=== PATIENT | male | born 1955 | race Caucasian/White ===

== ENCOUNTER 2018-04-15 06:24 | Inpatient (IN) ==
--- NOTE | 2018-04-14 12:25 | Anesthesia Evaluation PreOp ---
Date of Encounter: 04/15/18 Time of Encounter: 07:16 - Past History Planned Operation: CABG Cardiac History: HTN, Hyperlipidemia, Arrhythmia (Afib, Hx SVT s/p ablation), Other (CAD) Pulmonary History: HEIDY Dx (no CPAP) AU PAIR History: Denies Any Significant HX Other Medical History: Hepatic (Fatty Liver with esophageal varices (four columns of non bleeding grade 3 varices in lower third esophagus with banding and "complete eradication")), Diabetes Type II, GERD, Other (obesity BMI 40) Anesthesia History: No Prior Anesthetic Complications, Past Anesthesia ( bilateral total hips) Alcohol Use: occasionally Drug use: none Medications and Allergies Aspirin [Lo-Dose Aspirin EC] 81 mg PO DAILY 04/03/18 [History] Furosemide [Lasix] 40 mg PO DAILY 04/03/18 [History] Isosorbide MONOnitrate (24 HR) [Imdur] 30 mg PO DAILY 04/03/18 [History] Lisinopril [Zestril] 40 mg PO DAILY 04/03/18 [History] Metformin HCl [Metformin HCl] 1,000 mg PO BID 04/03/18 [History] Omeprazole [PriLOSEC] 20 mg PO Q48H 04/03/18 [History] Rifaximin [Xifaxan] 550 mg PO BID 04/03/18 [History] Nadolol 20 mg PO HS 04/15/18 [History] 3 Allergy/AdvReac Type Severity Reaction Status Date / Time Penicillins [PCN] Allergy Rash Verified 04/15/18 07:07 - Meds/Allergy Pre-op Review Medications Reviewed: Yes Allergies Reviewed: Yes Beta Blockers on Current Med List: Yes (metoprolol ) If Beta Blockers taken, Date/Time (Last Dose taken): 720 Anesthesia Results - Labs Laboratory Tests 04/02/18 04/02/18 04/11/18 15:39 15:39 14:36 WBC 6.8 Hgb 14.6 Hct 41.7 Plt Count 133 L PT 13.0 H INR 1.2 APTT 34.4 Sodium 139 Potassium 3.7 Chloride 106 Carbon Dioxide 28 BUN 14 Creatinine 0.79 Est GFR (Non-Af Amer) > 60 Hemoglobin A1c 04/11/18 14:36 WBC Hgb Hct Plt Count PT INR APTT Sodium Potassium Chloride Carbon Dioxide BUN Creatinine Est GFR (Non-Af Amer) Hemoglobin A1c 6.1 H - Imaging EKG: report reviewed (afib), image reviewed Additional studies: [facility] 04/03/2018 There is severe three vessel coronary artery disease. The left ventricle is normal and has normal contractility EF 50% Acceptable risk for endoscopy +/- variceal banding; discuss with his optical effects line up person regarding statin as well which may be of benefit with RAZA and multivsl CAD. Atrial fibrillation not currently on AC 2/2 h/o esophageal varices Recommendations: Optimal medical therapy of patient's disease. Aggressive risk factor modification. Suggest patient have Elective coronary artery bypass surgery. History/Risk Factors: right hip replacement, right shoulder surgery. Diabetes Hypertension Procedure Time out performed according to hospital policy Access obtained in the right Radial artery by percutaneous puncture. Coronary angio and catheter across AV with pressures on pullback after vgram. LV Ventriculography Ejection Method: LV Gram Ejection Fraction: 50% Coronary Dominance: Co-dominant Lesion Findings/Interventions * Left Main Coronary Artery The LMCA is angiographically free of disease. * Left Anterior Descending There is a 90% stenosis in the Proximal LAD. The lesion has a MAGGI flow of 3. There is a 70% stenosis in the 1st Diagonal. The lesion has a MAGGI flow of 3. * Circumflex There is a 80% stenosis in the Mid Circumflex. The lesion has a MAGGI flow of 3. There is a 70% stenosis in the 1st Marginal. The lesion has a MAGGI flow of 3. * Right Coronary Artery There is a 90% stenosis in the Proximal RCA. The lesion has a MAGGI flow of 3. There is a 90% stenosis in the Distal RCA. The lesion has a MAGGI flow of 3. Echo 08/2017 Impressions: LVEF 55%. Moderately dilated left ventricle. Normal LV wall thickness and function. Atypical septal motion consistent with bundle branch block. Indeterminate diastolic function. Normal right ventricular structure and function. Severely dilated left atrium. Severely dilated right atrium. No evidence of pulmonary hypertension. Left Ventricular Wall Motion: Rest Echo Findings All wall segments showed normal motion. Findings: Study Quality * Technically adequate exam. ECG Findings * Sinus rhythm with BBB. Left Ventricle * LVEF 55%. * Moderately dilated left ventricle. * Normal LV wall thickness and function. * Atypical septal motion consistent with bundle branch block. * Indeterminate diastolic function. Right Ventricle * Normal right ventricular structure and function. Left Atrium * Severely dilated left atrium. Right Atrium * Severely dilated right atrium. Interatrial Septum * Interatrial septum not well evaluated. Aortic Valve * Trileaflet aortic valve with normal function. * No aortic regurgitation. * No aortic stenosis. Mitral Valve * Normal mitral valve structure and function. * No mitral regurgitation. * No mitral stenosis. Tricuspid Valve * Normal tricuspid valve structure and function. * Trace tricuspid regurgitation. * No evidence of pulmonary hypertension. Pulmonic Valve * Normal pulmonic valve structure and function. * No pulmonic regurgitation. Aorta * Normally sized aortic root. Pericardium * The pericardium appears normal. IVC * Normal IVC dimensions and inspiratory collapse. Pulmonary Artery * Normal visualized portions of the main pulmonary artery. Anesthesia Exam Vital Signs/O2 Sat/Glucose, Most Recent Temp Pulse Resp BP Pulse Ox 98.0 F 70 18 132/73 96 04/15/18 06:59 04/15/18 06:59 04/15/18 06:59 04/15/18 06:59 04/15/18 06:59 Blood Glucose* 136 Height: 1.83 Weight: 133 kg NPO (# of Hours): > 8 hr - HEENT Pupil (Motor): Pupils equal Mallampati: II Teeth: Missing Oral Opening: Greater than 3 - AU PAIR LOC: Oriented AU PAIR Motor: Normal RUE, Normal LUE, Normal RLE, Normal LLE, Normal Face AU PAIR Sensory: Normal: RUE, LUE, RLE, LLE, Face - Cardiac Rhythm: Irregular Murmur: None - Pulmonary Breath Sounds: bilateral Clear Respiratory Effort: Symmetrical Anesthesia Assess/Plan ASA Score: 4 Modified Marilee Scale for Level of Consciousness: Cooperative, oriented, and tranquil Anesthetic Plan: General Autologous Blood: Yes Monitoring Plan: Standard Monitors, A-Line, PAC Recovery Plan: ICU
[~2018-04-15 06:24] MED LIST: Dextrose 50 % in Water (Vial) 30 ML, Sodium Bicarbonate 20 MEQ, Lidocaine 1% 5 ML, Insu... TH ONE; Dextrose 50 % in Water (Vial) 30 ML, Sodium Bicarbonate 20 MEQ, Potassium Chloride 15 M... TH ONE; Heparin 15,000 UNIT in 0.9 % Sodium Chloride 500 ML IV ONE; Insulin Human Regular 100 UNIT in 0.9 % Sodium Chloride 100 ML IV PRN; Norepinephrine 4 MG in D5% in Water 250 ML IVC PRN
[2018-04-15] MEDS ORDERED: Nitroglycerin 25 MG/250 ML INFUS..BTL IVC ONE (06:47)
[2018-04-15] MEDS ORDERED: Clindamycin 900 MG/50 ML 900 MG/50 ML IV.SOLN IVPB ONE (06:48)
[2018-04-15] MEDS ORDERED: *HR* FentaNYL (PF) 1,000 MCG/20 ML VIAL ONE (06:50)
[2018-04-15] MEDS ORDERED: *HR* Midazolam HCl 5 MG/5 ML VIAL IVP ONE (06:50)
[2018-04-15] MEDS ORDERED: *HR* Propofol 200 MG/20 ML VIAL IVP ONE (06:50)
[2018-04-15] MEDS ORDERED: *HR* Rocuronium Bromide 50 MG/5 ML VIAL ONE ×3 (06:51→12:34)
[2018-04-15] MEDS ORDERED: Dexamethasone 4 MG/ML VIAL ONE (06:51)
[2018-04-15] MEDS ORDERED: Famotidine 20 MG/2 ML VIAL ONE (06:51)
[2018-04-15] MEDS ORDERED: Lidocaine 2% Syringe 100 MG/5 ML ONE (06:56)
--- NOTE | 2018-04-15 06:57 | History & Physical Report ---
Date of Encounter: 04/15/18 Time of Encounter: 06:55 24 Hour HP Update - Instructions Instructions: If the History and Physical is less than 30 days old and was completed prior to A.M. admission and or procedure and has NOT been updated on calendar day of procedure please complete this update prior to performing procedure. - Update Patient reports changes in Medical Condition: No Changes in examination, assessment, or condition: No Changes in Medication: No Preop tests/diagnostics Reviewed: Yes Pre-Op MRSA Screen: Negative Surgery Remains Indicated: Yes Consent for Planned Operative Procedure(s) Verified: Yes Review of Patient reveals the following changes:: The patient was evaluated by GI and given a Regina Class A designation. He is at increased, but not prohibitive risk for CABG. - Pre-Operative Checklist Preoperative Checklist Indicated: No Prophylactic Antibiotic Ordered: Yes Home Medications Include Beta Nicole: Yes Beta Nicole Taken Today (Day of Surgery): Yes Beta Nicole Taken Yesterday (Day Prior to Surgery): Yes Is VTE Prophylaxis Indicated?: NO
--- NOTE | 2018-04-15 07:01 | Event Note ---
Date of Encounter: 04/15/18 Time of Encounter: 07:00 The patient's operative consent was reviewed and a modified Maze procedure with left atrial appendage stapling was added because of his history of paroxysmal atrial fibrillation. The patient understands the procedure, benefits, alternatives, and risks. The initialed the operative consent to verify his understanding.
[2018-04-15] MEDS ORDERED: LIDOCAINE 1% PF 2 ML AMPUL ONE (07:33)
[2018-04-15] MEDS ORDERED: *HR* Heparin 10,000 UNIT/10 ML VIAL IV ONE (07:35)
[2018-04-15] MEDS ORDERED: Sodium Bicarbonate 50 MEQ/50 ML VIAL IVC ONE (07:35)
[2018-04-15] MEDS ORDERED: Tranexamic Acid 1,000 MG/10 ML VIAL IVPB ONE (07:35)
[2018-04-15] MEDS ORDERED: *HR* Magnesium Sulfate 2 GM/50 ML PIGGYBACK IVPB ONE (07:35)
[2018-04-15] MEDS ORDERED: Albumin Human 25% 25 GM/100 ML IV.SOLN IV ONE (07:35)
[2018-04-15] MEDS ORDERED: Mannitol 25% vial 12.5 GM/50 ML VIAL IVP ONE (07:35)
[2018-04-15] MEDS ORDERED: *HR* Phenylephrine 10 MG/ML VIAL IVC ONE (07:35)
[2018-04-15 08:08] LABS: ABG Base Excess -1 mEq/L (-2 to 3); ABG Chloride 108 mEq/L (98-107); ABG Glucose 135 mg/dL (60-95); ABG HCO3 25 mEq/L (21-27); ABG Ionized Calcium 1.08 mmol/L (1.15-1.35); ABG Oxygen Saturation 100 % (95-98); ABG PCO2 44 mmHg (35-45); ABG PH 7.35 pH Units (7.32-7.45); ABG PO2 297 mmHg (85-104); ABG TCO2 26 mEq/L (20-26)
[2018-04-15] MEDS ORDERED: *HR* Magnesium Sulfate 1 GM/2 ML VIAL ONE (08:27)
[2018-04-15] MEDS ORDERED: Aspirin 81 MG TAB.CHEW PO SCH (09:00)
[2018-04-15] MEDS ORDERED: Chlorhexidine Rinse 15 ML MOUTHWASH MM ONE (09:00)
[2018-04-15] MEDS ORDERED: Protamine Sulfate 50 MG/5 ML VIAL IVP ONE ×2 (09:27→09:28)
[2018-04-15] MEDS ORDERED: Protamine Sulfate 250 MG/25 ML VIAL IVP ONE (09:27)
[2018-04-15 09:28] LABS: ABG Base Excess -1 mEq/L (-2 to 3); ABG Chloride 108 mEq/L (98-107); ABG Glucose 145 mg/dL (60-95); ABG HCO3 25 mEq/L (21-27); ABG Ionized Calcium 1.12 mmol/L (1.15-1.35); ABG Oxygen Saturation 100 % (95-98); ABG PCO2 44 mmHg (35-45); ABG PH 7.36 pH Units (7.32-7.45); ABG PO2 219 mmHg (85-104); ABG TCO2 26 mEq/L (20-26)
[2018-04-15 10:17] LABS: ABG Base Excess 1 mEq/L (-2 to 3); ABG Chloride 102 mEq/L (98-107); ABG Glucose 203 mg/dL (60-95); ABG HCO3 26 mEq/L (21-27); ABG Oxygen Saturation 100 % (95-98); ABG PCO2 39 mmHg (35-45); ABG PH 7.43 pH Units (7.32-7.45); ABG PO2 522 mmHg (85-104); ABG TCO2 27 mEq/L (20-26)
--- NOTE | 2018-04-15 10:31 | Anesthesia Procedures ---
Date of Encounter: 04/15/18 Time of Encounter: 08:00 Procedures: Anesthesia - Arterial Line Consent obtained: written consent Time out performed: Yes Sedation: Versed (mg): 2 Sedation: Fentanyl (mcg): 100 Supplemental Oxygen via Nasal Cannula (L/min): 6 Local Anesthetic: Lidocaine 1% Amount of Anesthetic used (mls): 0.2 Size (Gauge): 20 Length (inches): 1 3/4 Technique Used: direct puncture technique Post-Procedure: line taped into place, dry sterile dressing placed Patient tolerated procedure: well, no complications Complications: none Site: Radial L Vitals: see anesthesia sheet - Central Line Placement Right IJ Consent obtained: written consent Time out performed: Yes Patient placed on monitor/pulse ox: Yes MD prep: mask, gown, gloves Central line prep: Chlorhexidine scrub Local Anesthetic Used: Other (general anesthesia) Ultrasound used for placement: Yes Technique: Seldinger Lumen Inserted: single Size / Length: 9 Fr / 10 cm Post procedure: sutured in place, good blood return, all ports aspirated, flushed, capped, sterile dressing applied Patient tolerated procedure: well, no complications Complications: none Vitals: see anesthesia sheet Comments: PAC inserted with pressure waveform analysis. Secured at 52 cm
[2018-04-15 11:00] LABS: ABG Base Excess -1 mEq/L (-2 to 3); ABG Chloride 106 mEq/L (98-107); ABG Glucose 193 mg/dL (60-95); ABG HCO3 23 mEq/L (21-27); ABG Ionized Calcium 1.06 mmol/L (1.15-1.35); ABG Oxygen Saturation 100 % (95-98); ABG PCO2 34 mmHg (35-45); ABG PH 7.43 pH Units (7.32-7.45); ABG PO2 456 mmHg (85-104); ABG TCO2 24 mEq/L (20-26)
[2018-04-15 11:30] LABS: ABG Base Excess 3 mEq/L (-2 to 3); ABG Chloride 105 mEq/L (98-107); ABG Glucose 187 mg/dL (60-95); ABG HCO3 27 mEq/L (21-27); ABG Ionized Calcium 1.05 mmol/L (1.15-1.35); ABG Oxygen Saturation 100 % (95-98); ABG PCO2 39 mmHg (35-45); ABG PH 7.45 pH Units (7.32-7.45); ABG PO2 590 mmHg (85-104); ABG TCO2 28 mEq/L (20-26)
[2018-04-15 12:11] LABS: ABG Base Excess 1 mEq/L (-2 to 3); ABG Chloride 104 mEq/L (98-107); ABG Glucose 167 mg/dL (60-95); ABG HCO3 26 mEq/L (21-27); ABG Ionized Calcium 1.05 mmol/L (1.15-1.35); ABG Oxygen Saturation 100 % (95-98); ABG PCO2 40 mmHg (35-45); ABG PH 7.41 pH Units (7.32-7.45); ABG PO2 557 mmHg (85-104); ABG TCO2 27 mEq/L (20-26)
[2018-04-15 12:36] LABS: ABG Base Excess -1 mEq/L (-2 to 3); ABG Chloride 105 mEq/L (98-107); ABG Glucose 157 mg/dL (60-95); ABG HCO3 24 mEq/L (21-27); ABG Oxygen Saturation 97 % (95-98); ABG PCO2 39 mmHg (35-45); ABG PH 7.39 pH Units (7.32-7.45); ABG PO2 96 mmHg (85-104); ABG TCO2 25 mEq/L (20-26)
[2018-04-15] MEDS: Insulin Human Regular 100 UNIT in 0.9 % Sodium Chloride 100 ML IVC SCH (13:24)
--- NOTE | 2018-04-15 13:27 | Operative Note ---
Date of procedure: 04/15/18 Pre-op diagnosis: CAD Post-op diagnosis: same Procedure: 1. CABG 4 (AYERS to LAD, SVG to D1, SVG to OM1, SVG to PDA). 2. Modified Maze procedure using radiofrequency ablation. 3. Left atrial appendage stapling. 4. Endoscopic vein harvesting, greater saphenous vein from right lower extremity. 5. Endoscopic vein harvesting, greater saphenous vein from left lower extremity. Implants: None. Complications: None. Anesthesia: GETA Surgeon: Ev Flores Was there an real estate executive assistant present: Yes Scale Adjuster: Arpan Ferreira Estimated blood loss (cc): 500 Specimen: None. Condition: stable Disposition: ICU Procedure in Detail: INDICATIONS FOR OPERATION: The patient a 62-year-old type II diabetic, hypertensive, or morbidly obese man with RAZA who was scheduled for a left rotator cuff repair. He was discovered to have atrial fibrillation during his preoperative workup and was recommended for cardiac workup prior to undergoing his orthopedic procedure. The patient denies any substernal chest pain; however, complaints of shortness of breath, dyspnea exertion, and easy fatigability. His RAZA was diagnosed in March 2017 and he was found to have non-bleeding esophageal varices. The patient underwent a transthoracic echocardiogram which revealed an LVEF 55% with a moderately dilated left ventricle, severely dilated left atrium, and severely dilated right atrium. Subsequent cardiac catheterization revealed severe 3 vessel CAD and an LVEF 50%. In particular, the patient has a 90% proximal LAD lesion, a 70% proximal D1 lesion, an 80% mid LCx lesion, a 70% proximal OM1 lesion, a 90% proximal RCA lesion, and a 90% distal RCA lesion. He has been recommended for combined CABG and modified Maze procedure. FINDINGS AT OPERATION: The aorta was of normal caliber without calcification. The coronary arteries measure approximately 2-3 mm in diameter and had mild distal disease. The greater saphenous vein was harvested endoscopically from both the left and right lower extremities. The greater saphenous vein from the right lower extremity was harvested from the knee to the groin and was of good quality. The vein distal to the right knee was atretic and not usable for bypass conduit. The greater saphenous vein from the left lower extremity was harvested from the knee to the groin and was of smaller caliber than expected; however, usable for bypass conduit. The total bypass time was 129 minutes, cross-clamp time 84 minutes, intentional hypothermia of 34 degrees centigrade. DESCRIPTION OF OPERATION: After obtaining informed operative consent from the patient, he was taken to the operative room where a satisfactory general endotracheal anesthetic was induced. Appropriate monitor lines were placed, and the a stitch chest, abdomen , and lower extremities were prepped and draped in a sterile fashion. The greater saphenous vein was harvested endoscopically from right lower extremity from the knee to the groin. The vein was removed, distended, and found to be of good quality. The vein distal to the right knee was atretic and not usable for bypass conduit. A second portion of greater saphenous vein was harvested endoscopically from the left lower extremity from the knee to the groin. The vein was removed, distended, and found to be of fair quality, being somewhat smaller in diameter than expected. The vein was usable for bypass conduit. The simultaneous tissue and skin edges were reapproximated running Vicryl sutures. Simultaneously, a standard medium sternotomy incision was made and the sternum divided. The AYERS was taken down from its bed and side branches divided between hemoclips. The sternum was and the pericardium opened and reflected laterally. The patient was prepared for cannulation by placing pursestring sutures the distal ascending aorta, mid-ascending aorta, and right atrial appendage. The patient was heparinized and when the ACT was greater than 200 seconds, the distal ascending aorta was cannulated followed by placement of dual stage venous cannula through the right atrial appendage and into the inferior vena cava. A stab-in antegrade metabolic cannula was placed in the mid-ascending aorta. The patient was placed on bypass and the temperature allowed to drift to 34 degrees centigrade. The distal targets were identified and the aorta was crossclamped. The patient received 700 mL of cold antegrade crystalloid cardioplegia through the aortic root and the patient's heart obtained rapid diastolic arrest. The right inferior and superior pulmonary veins were dissected from the surrounding adventitial tissue and a radiofrequency burn was applied to these veins. The patient's heart rhythm was noticed to be ventricular fibrillation and he received a notice of cold antegrade crystalloid cardioplegia through the aortic root. The PDA was opened be blade and the vein was anastomosed in an end-to-side fashion using running 7-0 Prolene suture. The left inferior and superior pulmonary veins were then dissected from surrounding adventitia tissue and a radiofrequency burn was applied individually to both these veins. The left atrial appendage was then closed using a stapling device. There was a small tear in the left atrial appendage and this area was reinforced with a running 4-0 Prolene suture. The distal LCx was identified, but found to be too small for bypass. The OM1 branch was opened be blade and the vein was anastomosed in end-to-side fashion using running 7-0 Prolene suture. The anastomosis found to be hemostatic. The patient received a final dose of cold antegrade Crisler cartilage up through the aortic root. The D1 branch was opened be blade and the vein was anastomosed in an end-to-side fashion using running 7-0 Prolene suture. The anastomosis found to be hemostatic. The LAD was opened with a [place] blade and the AYERS was anastomosed in end-to-side fashion to the LAD using running 7-0 Prolene suture. The anastomosis found to be hemostatic and the mammary pedicle was tacked to the epicardium using interrupted 5-0 silk suture. Rewarming was begun during this anastomosis. The aortic cross-clamp was released and the heart distended. The veins were measured and cut appropriate lengths. A partial occluding clamps placed across the mid ascending aorta and the antegrade cardioplegia cannula was removed. Two additional aortotomy sites were then made 11 blade and all 3 sites were enlarged with a 4 mm punch. The veins were anastomosed in an end-to-side fashion to the aorta using a running 5-0 Prolene suture. The vein grafts were occluded with bulldog clamps and de-aired the 25-gauge needle prior to removing the partial occluding clamp. The proximal distal anastomoses were found to be hemostatic and the proximal anastomoses were marked with radiopaque loops. Two sets of temporary epicardial pacing leads were placed, one atrial and one ventricular. Three chest suture placed, 2 in the mediastinum and one into the left pleural space. During rewarming the patient regained a slow rhythm and he was paced in AV mode at 80 pulses per minute. When the patient's systemic temperature reached 36 degrees centigrade, he was ventilated and received volume. He was weaned from bypass required no inotropic support. Protamine was administered and the aortic and venous cannulae were removed. Pursestring sutures were secured. The venous cannulation site was reinforced with a running 4-0 Prolene suture. The pericardium could be loosely approximated over the aorta and the main pulmonary artery; however, the right ventricle could not be covered with pericardium due to excessive tension. The sternum was reapproximate using doubled wires. The pectoralis major fascia, rectus abdominis fascia, simultaneous tissue, and skin edges were reapproximated running Vicryl sutures. A negative pressure sterile dressing was applied to the sternotomy incision. The patient was transferred to the ICU in satisfactory postoperative condition. There were no intraoperative complications, and the instrument, needle, and sponge count were corrected and of operation. - Open Heart Detail BLANQUITA (Internal Mammary Artery) Usage: Yes Cardiopulmonary Bypass Time (mins): 129 Aortic Cross Clamp Time (mins): 84 Intentional Hypothermia Temperature (C.): 34
[2018-04-15] MEDS ORDERED: Potassium Chloride 40 MEQ/200 ML BAG IVPB PRN (13:28)
[2018-04-15] MEDS ORDERED: *HR* Dextrose 50 % in Water (Syg) 50 ML SYRINGE IVP PRN (13:28)
[2018-04-15] MEDS ORDERED: Insulin Regular, Human 100 UNIT/ML IV PRN (13:28)
[2018-04-15] MEDS ORDERED: Naloxone 0.4 MG/ML INJ IVP PRN (13:28)
[2018-04-15] MEDS ORDERED: Acetaminophen 650 MG RECTAL SUPP RC PRN (13:28)
[2018-04-15] MEDS ORDERED: Calcium Chloride 1,000 MG in 0.9 % Sodium Chloride 100 ML IVPB PRN (13:28)
[2018-04-15 13:44] LABS: ABG Base Excess 1 mEq/L (-2 to 3); ABG HCO3 26 mEq/L (21-27); ABG Oxygen Saturation 99 % (95-98); ABG PCO2 46 mmHg (35-45); ABG PH 7.37 pH Units (7.32-7.45); ABG PO2 133 mmHg (85-104); ABG TCO2 28 mEq/L (20-26); Blood Gas Modality ASSIST CONTROL; Blood Gas PEEP 5 cm H2O; Blood Gas Respiration Rate 10; Blood Gas VT 650 cc
[2018-04-15 13:49] LABS: Basophils % 0.2 %; Eosinophils # 0.1 K/mcL (0.0-0.6); Eosinophils % 0.4 %; Hematocrit 33.1 % (37.5-50.1); Hemoglobin 11.2 g/dL (12.9-16.9); Immature Granulocytes % 0.6 % (0-4); Lymphocytes # 1.8 K/mcL (0.6-4.6); Lymphocytes % 10.2 %; Mean Corpuscular HGB Conc 33.8 g/dL (31.6-35.5); Mean Corpuscular Hemoglobin 30.9 pg (28.0-33.3); Mean Corpuscular Volume 91.2 fL (83.0-100.0); Mean Platelet Volume 9.9 fL (9.4-12.4); Monocytes # 1.3 K/mcL (0.0-1.3); Monocytes % 7.6 %; Neutrophils # 13.9 K/mcL (1.6-8.9); Platelet Count 124 K/mcL (140-400); Red Blood Count 3.63 M/mcL (4.19-5.50); Red Cell Distribution Width 14.5 % (11.5-14.5)
[2018-04-15 13:58] LABS: INR 1.5; Prothrombin Time 16.4 Seconds (9.4-12.1)
[2018-04-15 14:00] LABS: Activated Partial Thrombo Time 33.8 Seconds (26.0-36.0)
[2018-04-15 14:07] LABS: Alanine Aminotransferase 21 Units/L (7-52); Albumin 3.4 g/dL (3.5-5.7); Albumin/Globulin Ratio 1.8 (1.1-2.2); Alkaline Phosphatase 48 Units/L (34-104); Aspartate Amino Transferase 33 Units/L (13-39); BUN/Creatinine Ratio 16 (6-26); Bilirubin,Direct 0.5 mg/dL (0.0-0.2); Bilirubin,Indirect 1.4 mg/dL (0.0-1.2); Bilirubin,Total 1.9 mg/dL (0.3-1.0); Blood Urea Nitrogen 13 mg/dL (8-23); Calcium 9.1 mg/dL (8.6-10.3); Carbon Dioxide 26 mEq/L (23-29); Chloride 106 mEq/L (98-107); Globulin 1.9 g/dL (2.4-3.5); Glucose 156 mg/dL (70-105); Magnesium 2.4 mg/dL (1.6-2.6); Osmolality,Calculated 295 (280-300); Potassium 3.7 mEq/L (3.5-5.1); Sodium 141 mEq/L (136-145); Total Protein 5.3 g/dL (6.4-8.9); eGFR For Non-African Americans > 60 (> 60)
[2018-04-15] MEDS: *HR* FentaNYL (PF) 100 MCG/2 ML VIAL IVP PRN ×3 (14:12→20:23)
[2018-04-15] MEDS: 0.9 % Sodium Chloride w KCl 20 MEQ/1,000 ML MLS IVC SCH (14:12)
--- NOTE | 2018-04-15 14:15 | Anesthesia Evaluation Post Op ---
Date of Encounter: 04/16/18 Time of Encounter: 08:23 - Vital Signs Vital Signs: Vital Signs/O2 Sat/Glucose, Most Recent Temp Pulse Resp BP Pulse Ox 98.5 F 81 16 103/54 91 04/16/18 07:29 04/16/18 07:00 04/16/18 07:38 04/16/18 07:00 04/16/18 07:38 Blood Glucose* 134 - Lungs Lungs: Clear Ascult./Percussion - Airway Airway: Non-obstructed - Cardiovascular Regular Rate - Mental Status Mental Status: Alert & Oriented, Answers Appropriately - Nausea Vomiting Nausea Vomiting: Not Present - Hydration Hydration: Tolerates oral liquids Notes: 04/16/18 08:23 patient remains in ICU in stale condition POD#1 CABG MAZE
[2018-04-15] MEDS: Clindamycin 900 MG/50 ML 900 MG/50 ML IV.SOLN IVPB SCH ×2 (16:02→23:03)
[2018-04-15] MEDS ORDERED: 0.9 % Sodium Chloride 250 ML ONE (16:09)
[2018-04-15 17:25] LABS: ABG Base Excess 1 mEq/L (-2 to 3); ABG HCO3 26 mEq/L (21-27); ABG Oxygen Saturation 98 % (95-98); ABG PCO2 41 mmHg (35-45); ABG PH 7.41 pH Units (7.32-7.45); ABG PO2 99 mmHg (85-104); ABG TCO2 27 mEq/L (20-26); Blood Gas Modality ASSIST CONTROL; Blood Gas PEEP 5 cm H2O; Blood Gas Pressure Support 5 cm H2O; Blood Gas Respiration Rate 14; Blood Gas VT 580 cc
[2018-04-15 17:32] LABS: Basophils % 0.2 %; Eosinophils % 0.1 %; Hematocrit 34.5 % (37.5-50.1); Hemoglobin 11.7 g/dL (12.9-16.9); Immature Granulocytes % 0.3 % (0-4); Lymphocytes % 5.7 %; Mean Corpuscular HGB Conc 33.9 g/dL (31.6-35.5); Mean Corpuscular Hemoglobin 30.9 pg (28.0-33.3); Mean Platelet Volume 9.9 fL (9.4-12.4); Monocytes # 1.4 K/mcL (0.0-1.3); Neutrophils # 14.8 K/mcL (1.6-8.9); Platelet Count 121 K/mcL (140-400); Red Blood Count 3.79 M/mcL (4.19-5.50); Red Cell Distribution Width 14.5 % (11.5-14.5); Segmented Neutrophils % 85.7 %
[2018-04-15] MEDS ORDERED: 0.9 % Sodium Chloride 500 ML ONE (17:44)
[2018-04-15 17:49] LABS: BUN/Creatinine Ratio 17 (6-26); Blood Urea Nitrogen 15 mg/dL (8-23); Calcium 8.9 mg/dL (8.6-10.3); Carbon Dioxide 26 mEq/L (23-29); Chloride 107 mEq/L (98-107); Glucose 186 mg/dL (70-105); Osmolality,Calculated 296 (280-300); Potassium 4.6 mEq/L (3.5-5.1); Sodium 140 mEq/L (136-145); eGFR For Non-African Americans > 60 (> 60)
[2018-04-15] MEDS: Ringers Solution, Lactated 1,000 ML IVC SCH (17:53)
[2018-04-15] MEDS: Pantoprazole 40 MG VIAL IVP SCH (18:05)
[2018-04-15] MEDS: Norepinephrine 4 MG in D5% in Water 250 ML IVC SCH (18:06)
[2018-04-15] MEDS: *HR* OxyCODONE ER (12 HR) 10 MG TABLET PO SCH ×2 (18:06→23:03)
[2018-04-15] MEDS: Nitroglycerin 25 MG/250 ML INFUS..BTL IVC SCH ×2 (18:06→19:31)
[2018-04-15] MEDS: niCARdipine 40 MG/200 ML MLS IVC SCH ×2 (18:06→19:32)
[2018-04-15] MEDS: Metoclopramide 10 MG/2 ML VIAL IVP SCH ×2 (18:20→23:03)
[2018-04-15] MEDS: Furosemide 20 MG TABLET PO SCH (19:07)
[2018-04-15] MEDS: Chlorhexidine Rinse 15 ML MOUTHWASH MM SCH (20:23)
[2018-04-16] MEDS: Nitroglycerin 25 MG/250 ML INFUS..BTL IVC SCH ×5 (00:02→23:33)
[2018-04-16] MEDS: niCARdipine 40 MG/200 ML MLS IVC SCH ×4 (00:03→23:34)
[2018-04-16] MEDS: Ringers Solution, Lactated 1,000 ML IVC SCH (00:04)
[2018-04-16] MEDS: *HR* FentaNYL (PF) 100 MCG/2 ML VIAL IVP PRN (02:03)
[2018-04-16 03:08] LABS: Basophils % 0.1 %; Lymphocytes % 9.1 %; Red Cell Distribution Width 14.6 % (11.5-14.5)
[2018-04-16 03:10] LABS: Hematocrit 27.2 % (37.5-50.1); Hemoglobin 9.2 g/dL (12.9-16.9); INR 1.4; Immature Granulocytes % 0.6 % (0-4); Immature Platelets 5.7 % (1.1-6.1); Lymphocytes # 1.3 K/mcL (0.6-4.6); Mean Corpuscular HGB Conc 33.8 g/dL (31.6-35.5); Mean Corpuscular Volume 91.6 fL (83.0-100.0); Mean Platelet Volume 10.7 fL (9.4-12.4); Monocytes # 1.5 K/mcL (0.0-1.3); Monocytes % 10.3 %; Neutrophils # 11.6 K/mcL (1.6-8.9); Prothrombin Time 15.4 Seconds (9.4-12.1); Red Blood Count 2.97 M/mcL (4.19-5.50); Segmented Neutrophils % 79.9 %
[2018-04-16 03:12] LABS: Platelet Count 98 K/mcL (140-400)
[2018-04-16 03:13] LABS: Activated Partial Thrombo Time 30.7 Seconds (26.0-36.0)
[2018-04-16 03:28] LABS: Alanine Aminotransferase 72 Units/L (7-52); Albumin 3.7 g/dL (3.5-5.7); Albumin/Globulin Ratio 1.9 (1.1-2.2); Alkaline Phosphatase 45 Units/L (34-104); Aspartate Amino Transferase 115 Units/L (13-39); BUN/Creatinine Ratio 20 (6-26); Bilirubin,Direct 0.5 mg/dL (0.0-0.2); Bilirubin,Indirect 2.1 mg/dL (0.0-1.2); Bilirubin,Total 2.6 mg/dL (0.3-1.0); Blood Urea Nitrogen 18 mg/dL (8-23); Calcium 8.5 mg/dL (8.6-10.3); Carbon Dioxide 25 mEq/L (23-29); Chloride 106 mEq/L (98-107); Globulin 1.9 g/dL (2.4-3.5); Glucose 149 mg/dL (70-105); Osmolality,Calculated 291 (280-300); Sodium 138 mEq/L (136-145); Total Protein 5.6 g/dL (6.4-8.9); eGFR For Non-African Americans > 60 (> 60)
[2018-04-16] MEDS: Furosemide 20 MG TABLET PO SCH ×2 (05:04→16:29)
[2018-04-16] MEDS: Metoclopramide 10 MG/2 ML VIAL IVP SCH ×4 (05:04→23:03)
--- NOTE | 2018-04-16 07:54 | Cardiothoracic Progress Note ---
Date of Encounter: 04/16/18 Time of Encounter: 07:51 - Assessment and plan (1) Coronary artery disease Current Visit: No Status: Acute The patient is recovering well from his CABG4 and modified Maze procedure. He is currently extubated and breathing comfortably. He was able to sit in the chair last evening without difficulty. His bilirubin and transaminases have increased, consistent with his pump run. The arterial line, Gonsales catheter, and [place] catheter will remain in place for monitoring purposes. The patient will remain in the ICU today for close observation. The assessment and plan as outlined above was discussed with the patient and/or family members who expressed understanding and agreement. All questions were answered. Qualifiers: Coronary Disease-Associated Artery/Lesion type: ute artery [place] vs. transplanted heart: ute heart Associated angina: with stable angina Qualified Code(s): I25.118 - Atherosclerotic heart disease of ute coronary artery with other forms of angina pectoris - Subjective Procedure(s) Performed: POD#1 S/P CABG4, modified Maze procedure Interval history: The patient remained hemodynamic stable overnight. He is currently extubated and breathing comfortably. He was able to the chair late last night without difficulty. He has no complaints. Vital Signs, Last 4 Hours Temp Pulse Resp BP Pulse Ox 04/16/18 07:38 16 91 04/16/18 07:29 98.5 F 04/16/18 07:00 81 17 103/54 92 04/16/18 06:01 99.2 F 105 16 101/62 95 04/16/18 05:03 99.3 F 100 16 106/60 97 04/16/18 04:00 99.3 F 94 18 104/56 94 Oxgyen Flow Rate Oxygen Flow Rate (LPM) 0 Clinical Data, last 8 Hours Output, Chest Tube Drainage 2 Amount [Mediastinal #2] Output, Chest Tube Drainage 0 Amount [Mediastinal #2] Output, Chest Tube Drainage 20 Amount [Mediastinal #2] Output, Chest Tube Drainage 6 Amount [Mediastinal #2] Output, Chest Tube Drainage 4 Amount [Mediastinal #2] Output, Chest Tube Drainage 0 Amount [Mediastinal #2] Output, Chest Tube Drainage 40 Amount [Mediastinal #1] Output, Chest Tube Drainage 150 Amount [Mediastinal #1] Output, Chest Tube Drainage 90 Amount [Mediastinal #1] Output, Chest Tube Drainage 60 Amount [Mediastinal #1] Output, Chest Tube Drainage 90 Amount [Mediastinal #1] Output, Chest Tube Drainage 120 Amount [Mediastinal #1] Output, Chest Tube Drainage 80 Amount [Mediastinal #1] Output, Chest Tube Drainage 140 Amount [Mediastinal #1] Weight 04/14/18 04/15/18 04/16/18 23:59 23:59 23:59 Weight 133.81 kg - Physical Examination General: Conversant, No Apparent Distress Neck: No JVD, Normal carotid pulses Cardiac: Reg Rate and Rhythm, Normal S1 and S2, No Murmur Incision: No signs of infection, Dry/intact dressing Sternum: Stable Chest tubes: Minimal drainage, Other (No air leak) Pacing Wires: In place Lungs: Normal Breath Sounds, No Wheeze, Rales, Rhonchi Neuro: Alert and responsive, No focal deficits noted Vascular: Normal capillary refill Extremities: No Clubbing, No Cyanosis, No Edema - Labs 04/16/18 03:00 04/16/18 03:00 Lab Results, Last 24 hours 04/15/18 04/15/18 04/15/18 13:37 13:37 13:37 WBC 17.2 H Hgb 11.2 L Hct 33.1 L Plt Count 124 L INR 1.5 APTT 33.8 Sodium 141 Potassium 3.7 Chloride 106 Carbon Dioxide 26 BUN 13 Creatinine 0.82 Glucose 156 H Calcium 9.1 Magnesium 2.4 Total Bilirubin 1.9 H AST 33 ALT 21 Alkaline Phosphatase 48 04/15/18 04/15/18 04/16/18 17:21 17:21 03:00 WBC 17.2 H 14.5 H Hgb 11.7 L 9.2 L D Hct 34.5 L 27.2 L Plt Count 121 L 98 L INR APTT Sodium 140 Potassium 4.6 Chloride 107 Carbon Dioxide 26 BUN 15 Creatinine 0.87 Glucose 186 H Calcium 8.9 Magnesium Total Bilirubin AST ALT Alkaline Phosphatase 04/16/18 04/16/18 03:00 03:00 WBC Hgb Hct Plt Count INR 1.4 APTT 30.7 Sodium 138 Potassium 4.0 Chloride 106 Carbon Dioxide 25 BUN 18 Creatinine 0.90 Glucose 149 H Calcium 8.5 L Magnesium 2.0 Total Bilirubin 2.6 H AST 115 H ALT 72 H Alkaline Phosphatase 45 - Imaging Chest Xray: image reviewed (No pneumothorax. Small left pleural effusion.) - VTE Reasons for not Prescribing Prophylaxis: Medical contraindication Consult Discharge Plan - Plan Referrals: Jyothi Vera [Primary Care Provider] -
[2018-04-16] MEDS: Aspirin Enteric Coated 81 MG Tablet PO SCH (07:56)
[2018-04-16] MEDS: Chlorhexidine Rinse 15 ML MOUTHWASH MM SCH ×2 (07:56→20:05)
[2018-04-16] MEDS: Pantoprazole 40 MG VIAL IVP SCH (07:56)
[2018-04-16] MEDS: *HR* OxyCODONE ER (12 HR) 10 MG TABLET PO SCH ×3 (07:56→23:33)
[2018-04-16] MEDS ORDERED: D5% in Water 1,000 ML IVC PRN (07:58)
[2018-04-16] MEDS ORDERED: Dextrose Gel 15 GM/37.5 ML TUBE PO PRN ×2 (07:58)
[2018-04-16] MEDS ORDERED: *HR* Dextrose 50 % in Water (Syg) 50 ML SYRINGE IVP PRN (07:58)
[2018-04-16] MEDS: Norepinephrine 4 MG in D5% in Water 250 ML IVC SCH ×2 (09:30→11:31)
[2018-04-16] MEDS: 0.9 % Sodium Chloride w KCl 20 MEQ/1,000 ML MLS IVC SCH (11:27)
[2018-04-16] MEDS: Insulin Human Regular 100 UNIT in 0.9 % Sodium Chloride 100 ML IVC SCH (16:26)
[2018-04-16] MEDS: Insulin LISPRO 300 UNITS/3 ML VIAL SQ SCH ×2 (16:29→19:34)
[2018-04-16] MEDS ORDERED: 0.9 % Sodium Chloride 500 ML ONE (23:37)
[2018-04-17 03:16] LABS: Basophils % 0.2 %; Eosinophils % 0.1 %; Hemoglobin 7.7 g/dL (12.9-16.9); Immature Granulocytes % 0.5 % (0-4)
[2018-04-17 03:18] LABS: Hematocrit 22.8 % (37.5-50.1); Immature Platelets 6.7 % (1.1-6.1); Lymphocytes # 2.9 K/mcL (0.6-4.6); Lymphocytes % 16.5 %; Mean Corpuscular HGB Conc 33.8 g/dL (31.6-35.5); Mean Corpuscular Hemoglobin 30.6 pg (28.0-33.3); Mean Corpuscular Volume 90.5 fL (83.0-100.0); Mean Platelet Volume 10.8 fL (9.4-12.4); Monocytes # 2.6 K/mcL (0.0-1.3); Monocytes % 14.7 %; Platelet Count 90 K/mcL (140-400); Red Blood Count 2.52 M/mcL (4.19-5.50); Red Cell Distribution Width 14.2 % (11.5-14.5)
[2018-04-17 03:33] LABS: Alanine Aminotransferase 214 Units/L (7-52); Albumin 3.5 g/dL (3.5-5.7); Albumin/Globulin Ratio 1.9 (1.1-2.2); Alkaline Phosphatase 44 Units/L (34-104); Aspartate Amino Transferase 242 Units/L (13-39); BUN/Creatinine Ratio 27 (6-26); Bilirubin,Direct 0.5 mg/dL (0.0-0.2); Bilirubin,Indirect 1.5 mg/dL (0.0-1.2); Blood Urea Nitrogen 27 mg/dL (8-23); Carbon Dioxide 24 mEq/L (23-29); Chloride 101 mEq/L (98-107); Globulin 1.8 g/dL (2.4-3.5); Glucose 156 mg/dL (70-105); Osmolality,Calculated 284 (280-300); Sodium 133 mEq/L (136-145); Total Protein 5.3 g/dL (6.4-8.9); eGFR For Non-African Americans > 60 (> 60)
[2018-04-17] MEDS: 0.9 % Sodium Chloride w KCl 20 MEQ/1,000 ML MLS IVC SCH (04:50)
[2018-04-17] MEDS: Metoclopramide 10 MG/2 ML VIAL IVP SCH ×4 (05:11→23:24)
[2018-04-17] MEDS: Furosemide 20 MG TABLET PO SCH ×2 (05:11→17:30)
--- NOTE | 2018-04-17 07:06 | Cardiothoracic Progress Note ---
Date of Encounter: 04/17/18 Time of Encounter: 07:04 - Assessment and plan (1) Coronary artery disease Current Visit: No Status: Acute The patient is recovering well from his CABG4 and modified Maze procedure. He is breathing comfortably. He was able to sit in the chair last evening without difficulty. His bilirubin and transaminases have increased somewhat from yesterday, consistent with his pump run. The arterial line, Gonsales catheter, and [place]-Ameena catheter will be removed. The patient will remain in the ICU today for close observation. The assessment and plan as outlined above was discussed with the patient and/or family members who expressed understanding and agreement. All questions were answered. Qualifiers: Coronary Disease-Associated Artery/Lesion type: [place] artery [place] vs. transplanted heart: [place] heart Associated angina: with stable angina Qualified Code(s): I25.118 - Atherosclerotic heart disease of [place] coronary artery with other forms of angina pectoris - Subjective Procedure(s) Performed: POD#2 S/P CABG4, modified Maze procedure Interval history: The patient remained hemodynamic stable overnight. He is sitting in a chair at the bedside and is breathing comfortably. He has no complaints. Vital Signs, Last 4 Hours Temp Pulse Resp BP Pulse Ox 04/17/18 06:00 90 14 114/66 92 04/17/18 05:00 98 18 123/80 92 04/17/18 04:00 91 14 124/60 92 04/17/18 03:10 16 103/49 92 04/17/18 03:06 97.8 F 87 16 124/57 92 Oxgyen Flow Rate Oxygen Flow Rate (LPM) 0 Clinical Data, last 8 Hours Output, Chest Tube Drainage 4 Amount [Mediastinal #2] Output, Chest Tube Drainage 15 Amount [Mediastinal #2] Output, Chest Tube Drainage 20 Amount [Mediastinal #1] Output, Chest Tube Drainage 60 Amount [Mediastinal #1] Weight 04/15/18 04/16/18 04/17/18 23:59 23:59 23:59 Weight 133.81 kg 154.8 kg - Physical Examination General: Conversant, No Apparent Distress Neck: No JVD, Normal carotid pulses Cardiac: Reg Rate and Rhythm, Normal S1 and S2, No Murmur Incision: No signs of infection, Dry/intact dressing Sternum: Stable Chest tubes: Minimal drainage, Other (No air leak) Pacing Wires: In place Lungs: Normal Breath Sounds, No Wheeze, Rales, Rhonchi Neuro: Alert and responsive, No focal deficits noted Vascular: Normal capillary refill Extremities: No Clubbing, No Cyanosis, No Edema - Labs 04/17/18 03:00 04/17/18 03:00 Lab Results, Last 24 hours 04/17/18 04/17/18 03:00 03:00 WBC 17.6 H Hgb 7.7 L D Hct 22.8 L Plt Count 90 L Sodium 133 L Potassium 4.0 Chloride 101 Carbon Dioxide 24 BUN 27 H Creatinine 1.00 Glucose 156 H Calcium 8.0 L Total Bilirubin 2.0 H AST 242 H ALT 214 H Alkaline Phosphatase 44 - Imaging Chest Xray: image reviewed (No pneumothorax. Increased left basilar atelectasis.) - VTE Reasons for not Prescribing Prophylaxis: Medical contraindication Consult Discharge Plan - Plan Referrals: Jyothi Vera [Primary Care Provider] -
[2018-04-17] MEDS: Insulin LISPRO 300 UNITS/3 ML VIAL SQ SCH ×4 (07:55→20:13)
[2018-04-17] MEDS: *HR* OxyCODONE ER (12 HR) 10 MG TABLET PO SCH ×2 (08:41→16:00)
[2018-04-17] MEDS: Chlorhexidine Rinse 15 ML MOUTHWASH MM SCH ×2 (08:41→20:13)
[2018-04-17] MEDS: Pantoprazole 40 MG VIAL IVP SCH (08:41)
[2018-04-17] MEDS: Aspirin Enteric Coated 81 MG Tablet PO SCH (08:41)
[2018-04-17] MEDS: Nitroglycerin 25 MG/250 ML INFUS..BTL IVC SCH ×3 (10:20→23:02)
[2018-04-17] MEDS: niCARdipine 40 MG/200 ML MLS IVC SCH ×2 (10:20→20:13)
--- NOTE | 2018-04-17 12:15 | Electrocardiograph Report ---
[place] [id number] Test Date: 2018-04-15 Pat Name: Av Lima Department: 112 Room: [facility] Gender: M [employer]al Support Services Director: PEPE : [id number] Requested By: Mal Flores Order Number: [id number] Reading MD: Lauren Velazquez Measurements Intervals [place] Rate: 80 P: 72 OK: 164 QRS: 24 QRSD: 183 T: -74 QT: 467 QTc: 502 Interpretive Statements A-V SEQUENTIAL PACING Electronically Signed On 04-17-2018 12:13:28 EDT by Lauren Velazquez
[2018-04-17 19:34] LABS: Basophils % 0.1 %; Eosinophils % 0.3 %; Hematocrit 20.8 % (37.5-50.1); Hemoglobin 6.9 g/dL (12.9-16.9); Immature Granulocytes % 0.6 % (0-4); Lymphocytes # 2.5 K/mcL (0.6-4.6); Lymphocytes % 15.9 %; Mean Corpuscular HGB Conc 33.2 g/dL (31.6-35.5); Mean Corpuscular Hemoglobin 30.8 pg (28.0-33.3); Mean Corpuscular Volume 92.9 fL (83.0-100.0); Mean Platelet Volume 11.3 fL (9.4-12.4); Monocytes # 1.8 K/mcL (0.0-1.3); Monocytes % 11.6 %; Neutrophils # 11.2 K/mcL (1.6-8.9); Nucleated Red Blood Cells 0.2 /100 WBC (0); Platelet Count 105 K/mcL (140-400); Red Blood Count 2.24 M/mcL (4.19-5.50); Red Cell Distribution Width 14.5 % (11.5-14.5); Segmented Neutrophils % 71.5 %
[2018-04-17 20:09] LABS: INR 1.3; Prothrombin Time 14.5 Seconds (9.4-12.1)
[2018-04-17] MEDS ORDERED: 0.9 % Sodium Chloride 250 ML ONE (20:48)
[2018-04-17] MEDS ORDERED: Amiodarone Premix 360 MG/200 ML BAG IVC ONE (21:46)
[2018-04-17] MEDS ORDERED: Amiodarone Premix 150 MG/100 ML BAG IVPB ONE (21:46)
[2018-04-18] MEDS: 0.9 % Sodium Chloride w KCl 20 MEQ/1,000 ML MLS IVC SCH ×2 (03:06→04:28)
[2018-04-18] MEDS: Nitroglycerin 25 MG/250 ML INFUS..BTL IVC SCH ×4 (03:06→17:34)
[2018-04-18] MEDS: niCARdipine 40 MG/200 ML MLS IVC SCH ×3 (03:07→20:07)
[2018-04-18] MEDS: Amiodarone Premix 360 MG/200 ML BAG IVC SCH ×2 (04:05→18:08)
[2018-04-18 05:51] LABS: Basophils % 0.1 %; Eosinophils % 0.1 %; Immature Granulocytes % 0.9 % (0-4); Nucleated Red Blood Cells 0.1 /100 WBC (0)
[2018-04-18 05:53] LABS: Hematocrit 25.1 % (37.5-50.1); Hemoglobin 8.6 g/dL (12.9-16.9); Immature Platelets 7.4 % (1.1-6.1); Lymphocytes % 9.8 %; Mean Corpuscular HGB Conc 34.3 g/dL (31.6-35.5); Mean Corpuscular Hemoglobin 30.9 pg (28.0-33.3); Mean Corpuscular Volume 90.3 fL (83.0-100.0); Mean Platelet Volume 10.8 fL (9.4-12.4); Monocytes # 2.1 K/mcL (0.0-1.3); Monocytes % 10.4 %; Neutrophils # 16.1 K/mcL (1.6-8.9); Red Blood Count 2.78 M/mcL (4.19-5.50); Red Cell Distribution Width 14.4 % (11.5-14.5); Segmented Neutrophils % 78.7 %
[2018-04-18 06:01] LABS: INR 1.3
[2018-04-18 06:09] LABS: Alanine Aminotransferase 198 Units/L (7-52); Albumin 3.2 g/dL (3.5-5.7); Albumin/Globulin Ratio 1.6 (1.1-2.2); Alkaline Phosphatase 55 Units/L (34-104); Aspartate Amino Transferase 163 Units/L (13-39); BUN/Creatinine Ratio 25 (6-26); Bilirubin,Direct 0.7 mg/dL (0.0-0.2); Bilirubin,Indirect 1.4 mg/dL (0.0-1.2); Bilirubin,Total 2.1 mg/dL (0.3-1.0); Blood Urea Nitrogen 34 mg/dL (8-23); Calcium 7.9 mg/dL (8.6-10.3); Carbon Dioxide 23 mEq/L (23-29); Chloride 100 mEq/L (98-107); Glucose 169 mg/dL (70-105); Osmolality,Calculated 282 (280-300); Potassium 3.9 mEq/L (3.5-5.1); Sodium 130 mEq/L (136-145); Total Protein 5.2 g/dL (6.4-8.9); eGFR For Non-African Americans 54 (> 60)
[2018-04-18] MEDS: Metoclopramide 10 MG/2 ML VIAL IVP SCH ×3 (06:24→18:23)
[2018-04-18] MEDS: Furosemide 20 MG TABLET PO SCH (06:24)
[2018-04-18 06:26] LABS: Platelet Count 93 K/mcL (140-400)
--- NOTE | 2018-04-18 06:45 | Cardiothoracic Progress Note ---
Date of Encounter: 04/18/18 Time of Encounter: 06:42 - Assessment and plan (1) Coronary artery disease Current Visit: No Status: Acute The patient is recovering well from his CABG4 and modified Maze procedure. He is breathing comfortably. He had increased chest tube output during the day and early evening yesterday. This appears to have stopped. The chest x-ray shows no fluid accumulation. The patient will resume sitting in the chair today to see if he has any further chest tube output. If he has a large amount of chest tube drainage this morning, he will be taken for reexploration. He developed atrial fibrillation with rapid ventricular response last evening, but he has converted to normal sinus rhythm with an amiodarone drip. The patient will be monitored in the ICU today. The assessment and plan as outlined above was discussed with the patient and/or family members who expressed understanding and agreement. All questions were answered. Qualifiers: Coronary Disease-Associated Artery/Lesion type: [place] artery [place] vs. transplanted heart: [place] heart Associated angina: with stable angina Qualified Code(s): I25.118 - Atherosclerotic heart disease of [place] coronary artery with other forms of angina pectoris - Subjective Procedure(s) Performed: POD#3 S/P CABG4, modified Maze procedure Interval history: The patient remained hemodynamic stable overnight. He had minimal chest tube drainage overnight, although he remained in bed. He has no complaints. Vital Signs, Last 4 Hours Temp Pulse Resp BP Pulse Ox 04/18/18 06:00 76 18 113/56 95 04/18/18 05:00 75 16 88/52 94 04/18/18 04:00 98.8 F 73 20 88/56 93 04/18/18 03:59 16 95 04/18/18 03:50 74 04/18/18 03:10 98.8 F 80 20 99/45 96 04/18/18 03:00 81 22 91/47 96 Oxgyen Flow Rate Oxygen Flow Rate (LPM) 4 Clinical Data, last 8 Hours Output, Chest Tube Drainage 5 Amount [Mediastinal #2] Output, Chest Tube Drainage 10 Amount [Mediastinal #2] Output, Chest Tube Drainage 20 Amount [Mediastinal #2] Output, Chest Tube Drainage 15 Amount [Mediastinal #2] Output, Chest Tube Drainage 30 Amount [Mediastinal #1] Output, Chest Tube Drainage 25 Amount [Mediastinal #1] Output, Chest Tube Drainage 20 Amount [Mediastinal #1] Weight 04/16/18 04/17/18 04/18/18 23:59 23:59 23:59 Weight 154.8 kg 152.8 kg - Physical Examination General: Conversant, No Apparent Distress Neck: No JVD, Normal carotid pulses Cardiac: Reg Rate and Rhythm, Normal S1 and S2, No Murmur Incision: No signs of infection, Dry/intact dressing Sternum: Stable Chest tubes: Minimal drainage, Other (No air leak) Lungs: Normal Breath Sounds, No Wheeze, Rales, Rhonchi Neuro: Alert and responsive, No focal deficits noted Vascular: Normal capillary refill Extremities: No Clubbing, No Cyanosis, No Edema - Labs 04/18/18 05:32 04/18/18 05:32 Lab Results, Last 24 hours 04/17/18 04/17/18 04/18/18 19:22 19:45 05:32 WBC 15.7 H 20.5 H Hgb 6.9 L 8.6 L D Hct 20.8 L 25.1 L Plt Count 105 L 93 L INR 1.3 Sodium Potassium Chloride Carbon Dioxide BUN Creatinine Glucose Calcium Total Bilirubin AST ALT Alkaline Phosphatase 04/18/18 04/18/18 05:32 05:32 WBC Hgb Hct Plt Count INR 1.3 Sodium 130 L Potassium 3.9 Chloride 100 Carbon Dioxide 23 BUN 34 H Creatinine 1.34 H Glucose 169 H Calcium 7.9 L Total Bilirubin 2.1 H AST 163 H ALT 198 H Alkaline Phosphatase 55 - Imaging Chest Xray: image reviewed (No pneumothorax. Minimal basilar atelectasis/ infiltrates.) - VTE Reasons for not Prescribing Prophylaxis: Medical contraindication Consult Discharge Plan - Plan Referrals: Jyothi Vera [Primary Care Provider] -
[2018-04-18] MEDS: Insulin LISPRO 300 UNITS/3 ML VIAL SQ SCH ×3 (08:00→19:42)
--- NOTE | 2018-04-18 12:11 | Anesthesia Evaluation PreOp ---
Date of Encounter: 04/18/18 Time of Encounter: 12:09 - Past History Planned Operation: Exploration of chest Cardiac History: HTN, Hyperlipidemia, Arrhythmia (Afib with RVR 04/17/2018 started on amiodarone gtt), Cardiac Surgery (POD#3 S/P CABG4, modified Maze procedure), Other (CAD) Pulmonary History: HEIDY Dx (no CPAP) MORTUARY BEAUTICIAN History: Denies Any Significant HX Other Medical History: Hepatic (fatty liver disease with esophageal varices), Renal (ROSE post op), Diabetes Type II, GERD, Other (Obesity BMI 45, anemia and thrombocytopenia) Anesthesia History: No Prior Anesthetic Complications, Past Anesthesia (POD#3 S/ P CABG4, modified Maze procedure, bilateral total hips) Alcohol Use: occasionally Drug use: none Medications and Allergies Aspirin [Lo-Dose Aspirin EC] 81 mg PO DAILY 04/03/18 [History] Furosemide [Lasix] 40 mg PO DAILY 04/03/18 [History] Isosorbide MONOnitrate (24 HR) [Imdur] 30 mg PO DAILY 04/03/18 [History] Lisinopril [Zestril] 40 mg PO DAILY 04/03/18 [History] Metformin HCl [Metformin HCl] 1,000 mg PO BID 04/03/18 [History] Omeprazole [PriLOSEC] 20 mg PO Q48H 04/03/18 [History] Rifaximin [Xifaxan] 550 mg PO BID 04/03/18 [History] Nadolol 20 mg PO HS 04/15/18 [History] 3 Allergy/AdvReac Type Severity Reaction Status Date / Time Penicillins [PCN] Allergy Rash Verified 04/15/18 07:07 - Meds/Allergy Pre-op Review Medications Reviewed: Yes Allergies Reviewed: Yes Beta Blockers on Current Med List: Yes (metoprolol) If Beta Blockers taken, Date/Time (Last Dose taken): 04/17/2018 20:16 Anesthesia Results - Labs 04/18/18 05:32 04/18/18 05:32 - Imaging EKG: report reviewed, image reviewed Anesthesia Exam Vital Signs/O2 Sat/Glucose, Most Recent Temp Pulse Resp BP Pulse Ox 98.2 F 79 16 96/57 94 04/18/18 08:08 04/18/18 10:00 04/18/18 11:10 04/18/18 10:00 04/18/18 11:10 Blood Glucose* 175 Height: 1.83 Weight: 152 kg NPO (# of Hours): > 8 hr - HEENT Pupil (Motor): Pupils equal Mallampati: II Teeth: Missing Oral Opening: Greater than 3 - MORTUARY BEAUTICIAN LOC: Oriented MORTUARY BEAUTICIAN Motor: Normal RUE, Normal LUE, Normal RLE, Normal LLE, Normal Face MORTUARY BEAUTICIAN Sensory: Normal: RUE, LUE, RLE, LLE, Face - Cardiac Rhythm: Regular Murmur: None - Pulmonary Breath Sounds: bilateral Clear Respiratory Effort: Symmetrical Anesthesia Assess/Plan ASA Score: 4 Modified Mar[place] Scale for Level of Consciousness: Cooperative, oriented, and tranquil Anesthetic Plan: General Monitoring Plan: Standard Monitors, A-Line, CVC
[2018-04-18] MEDS: Aspirin Enteric Coated 81 MG Tablet PO SCH (12:26)
[2018-04-18] MEDS ORDERED: *HR* FentaNYL (PF) 250 MCG/5 ML VIAL ONE (12:26)
[2018-04-18] MEDS ORDERED: *HR* Midazolam HCl 5 MG/5 ML VIAL IVP ONE (12:26)
[2018-04-18] MEDS: Chlorhexidine Rinse 15 ML MOUTHWASH MM SCH ×2 (12:27→20:07)
[2018-04-18] MEDS ORDERED: Lidocaine 2% Syringe 100 MG/5 ML ONE (12:28)
[2018-04-18] MEDS ORDERED: Dexamethasone 4 MG/ML VIAL ONE (12:29)
[2018-04-18] MEDS ORDERED: *HR* Rocuronium Bromide 50 MG/5 ML VIAL ONE ×2 (12:30)
[2018-04-18] MEDS ORDERED: Famotidine 20 MG/2 ML VIAL ONE (12:30)
[2018-04-18] MEDS ORDERED: *HR* Propofol 200 MG/20 ML VIAL IVP ONE (12:31)
[2018-04-18] MEDS: Pantoprazole 40 MG VIAL IVP SCH (12:31)
[2018-04-18] MEDS ORDERED: Clindamycin 900 MG/50 ML 900 MG/50 ML IV.SOLN IVPB ONE ×2 (12:34→13:31)
--- NOTE | 2018-04-18 13:32 | Anesthesia Procedures ---
Date of Encounter: 04/18/18 Time of Encounter: 13:00 Procedures: Anesthesia - Arterial Line Consent obtained: written consent Time out performed: Yes Sedation: Versed (mg): 2 Supplemental Oxygen via Nasal Cannula (L/min): 4 Local Anesthetic: Lidocaine 1% Amount of Anesthetic used (mls): 0.2 Size (Gauge): 20 Length (inches): 1 3/4 Technique Used: direct puncture technique Post-Procedure: line taped into place, dry sterile dressing placed Patient tolerated procedure: well, no complications Complications: none Site: Radial L
[2018-04-18] MEDS ORDERED: Insulin Regular, Human 100 UNIT/ML IV PRN (15:28)
--- NOTE | 2018-04-18 15:32 | Operative Note ---
Date of procedure: 04/18/18 Pre-op diagnosis: Postoperative mediastinal bleeding Post-op diagnosis: same Procedure: 1. Mediastinal reexploration. Implants: None. Complications: None. Anesthesia: LEAHA Surgeon: Ev Flores Was there an assistant general manager present: No Estimated blood loss (cc): 100 Specimen: None. Condition: stable Disposition: ICU Procedure in Detail: INDICATIONS FOR OPERATION: The patient is a 62-year-old type II diabetic, hypertensive, morbidly obese man with Wright who was scheduled for a left rotator cuff repair. He was discovered to have atrial fibrillation during his preoperative workup was recommended for further cardiac workup prior to undergoing his orthopedic procedure. His cardiac catheterization revealed severe 3 vessel CAD and an LVEF 55%. The patient underwent CABG 4 with a modified Maze procedure and left atrial appendage stapling on 04/15/2018. Postoperatively the patient had persistent chest tube output as well as a decrease in his hemoglobin. He was taken back to the operating room for mediastinal reexploration. FINDINGS AT OPERATION: The patient had a small amount of anterior mediastinal hematoma. No active bleeding sites were found in the cannulation sites, graft sites, or pacemaker sites. DESCRIPTION OF OPERATION: After obtaining informed operative consent from the patient, he was taken to the operative room where a satisfactory general endotracheal anesthetic was induced. Appropriate monitor lines were placed, and the patient's chest and upper abdomen were prepped and draped in a sterile fashion. The sternotomy incision was reopened and the sternal wires removed. The sternum was and a small amount of anterior pericardial hematoma was identified. This was removed and no active bleeding was found. The aortic cannulation site, venous cannulation site, proximal anastomoses, distal anastomoses, left atrial appendage stapling site, and pacemaker sites were found to be hemostatic. Small amount of bleeding was noted from his sternal marrow. No active bleeding sites were identified and other areas. The mediastinum was irrigated with 1 L of saline solution. The chest tubes were cleared of clot and repositioned. The pericardium could not be reapproximated over the heart due to excessive tension. The sternum was reapproximated using doubled wires. He pectoralis major fascia, rectus abdominis fascia simultaneous tissue, and skin edges were reapproximated running Vicryl sutures. A negative pressure sterile dressing was applied to the sternotomy incision. The patient was transferred to the ICU in satisfactory postoperative condition. There were no intraoperative complications, and the instrument, needle, and sponge count were correct at the end of operation.
--- NOTE | 2018-04-18 15:38 | Anesthesia Evaluation Post Op ---
Date of Encounter: 04/18/18 Time of Encounter: 15:35 - Vital Signs Vital Signs: Vital Signs/O2 Sat/Glucose, Most Recent Temp Pulse Resp BP Pulse Ox 97.9 F 72 16 94/50 95 04/18/18 11:00 04/18/18 12:16 04/18/18 12:00 04/18/18 12:00 04/18/18 12:00 Blood Glucose* 175 - Lungs Lungs: Clear Ascult./Percussion - Airway Airway: Intubated - Cardiovascular Regular Rate - Mental Status Mental Status: Sedated - Pain Pain Scale used: [place]la (Faces) - Nausea Vomiting Nausea Vomiting: Not Present - Hydration Hydration: NPO Notes: 04/18/18 15:35 transferred to ICU intubated in stable condition.
[2018-04-18 15:53] LABS: ABG Base Excess -2 mEq/L (-2 to 3); ABG HCO3 24 mEq/L (21-27); ABG Oxygen Saturation 91 % (95-98); ABG PCO2 42 mmHg (35-45); ABG PH 7.36 pH Units (7.32-7.45); ABG PO2 64 mmHg (85-104); ABG TCO2 25 mEq/L (20-26); Blood Gas Modality ASSIST CONTROL; Blood Gas PEEP 5 cm H2O; Blood Gas Respiration Rate 10; Blood Gas VT 550 cc
[2018-04-18] MEDS: Norepinephrine 4 MG in D5% in Water 250 ML IVC SCH ×2 (16:00→17:35)
[2018-04-18] MEDS: Insulin Human Regular 100 UNIT in 0.9 % Sodium Chloride 100 ML IVC SCH (16:00)
[2018-04-18 16:30] LABS: Basophils % 0.2 %; Eosinophils % 0.1 %; Hematocrit 25.5 % (37.5-50.1); Hemoglobin 8.7 g/dL (12.9-16.9); Immature Granulocytes % 0.4 % (0-4); Immature Platelets 8.7 % (1.1-6.1); Lymphocytes # 1.6 K/mcL (0.6-4.6); Lymphocytes % 9.1 %; Mean Corpuscular HGB Conc 34.1 g/dL (31.6-35.5); Mean Corpuscular Volume 90.7 fL (83.0-100.0); Mean Platelet Volume 11.1 fL (9.4-12.4); Monocytes # 1.2 K/mcL (0.0-1.3); Monocytes % 6.9 %; Neutrophils # 14.2 K/mcL (1.6-8.9); Nucleated Red Blood Cells 0.1 /100 WBC (0); Platelet Count 114 K/mcL (140-400); Red Blood Count 2.81 M/mcL (4.19-5.50); Red Cell Distribution Width 14.8 % (11.5-14.5); Segmented Neutrophils % 83.3 %
[2018-04-18 16:41] LABS: INR 1.4
[2018-04-18 16:43] LABS: ABG Base Excess 0 mEq/L (-2 to 3); ABG HCO3 24 mEq/L (21-27); ABG Oxygen Saturation 95 % (95-98); ABG PCO2 37 mmHg (35-45); ABG PH 7.42 pH Units (7.32-7.45); ABG PO2 73 mmHg (85-104); ABG TCO2 26 mEq/L (20-26); Blood Gas Modality CPAP/PS; Blood Gas PEEP 5 cm H2O; Blood Gas Pressure Support 10 cm H2O
[2018-04-18 16:43] LABS: BUN/Creatinine Ratio 28 (6-26); Blood Urea Nitrogen 30 mg/dL (8-23); Calcium 7.6 mg/dL (8.6-10.3); Carbon Dioxide 25 mEq/L (23-29); Chloride 102 mEq/L (98-107); Glucose 199 mg/dL (70-105); Magnesium 1.9 mg/dL (1.6-2.6); Osmolality,Calculated 286 (280-300); Potassium 4.2 mEq/L (3.5-5.1); Sodium 132 mEq/L (136-145); eGFR For Non-African Americans > 60 (> 60)
[2018-04-18 16:45] LABS: Prothrombin Time 16.2 Seconds (9.4-12.1)
[2018-04-18 17:23] LABS: ABG Base Excess 0 mEq/L (-2 to 3); ABG HCO3 24 mEq/L (21-27); ABG Oxygen Saturation 96 % (95-98); ABG PCO2 38 mmHg (35-45); ABG PH 7.42 pH Units (7.32-7.45); ABG PO2 83 mmHg (85-104); ABG TCO2 25 mEq/L (20-26)
[2018-04-18] MEDS: 0.9 % Sodium Chloride 1,000 ML IVC SCH (19:40)
[2018-04-18] MEDS: Clindamycin 900 MG/50 ML 900 MG/50 ML IV.SOLN IVPB SCH (20:06)
[2018-04-18] MEDS: *HR* FentaNYL (PF) 100 MCG/2 ML VIAL IVP PRN (22:01)
[2018-04-19] MEDS: Amiodarone Premix 360 MG/200 ML BAG IVC SCH ×2 (02:01→16:30)
[2018-04-19] MEDS: Insulin Human Regular 100 UNIT in 0.9 % Sodium Chloride 100 ML IVC SCH (03:01)
[2018-04-19 03:32] LABS: Alanine Aminotransferase 130 Units/L (7-52); Albumin 3.4 g/dL (3.5-5.7); Alkaline Phosphatase 45 Units/L (34-104); Aspartate Amino Transferase 83 Units/L (13-39); BUN/Creatinine Ratio 27 (6-26); Bilirubin,Direct 0.7 mg/dL (0.0-0.2); Bilirubin,Indirect 1.4 mg/dL (0.0-1.2); Bilirubin,Total 2.1 mg/dL (0.3-1.0); Blood Urea Nitrogen 26 mg/dL (8-23); Calcium 8.2 mg/dL (8.6-10.3); Carbon Dioxide 24 mEq/L (23-29); Chloride 106 mEq/L (98-107); Globulin 1.7 g/dL (2.4-3.5); Glucose 134 mg/dL (70-105); Osmolality,Calculated 289 (280-300); Potassium 3.5 mEq/L (3.5-5.1); Sodium 136 mEq/L (136-145); Total Protein 5.1 g/dL (6.4-8.9); eGFR For Non-African Americans > 60 (> 60)
[2018-04-19 03:35] LABS: Immature Granulocytes % 0.3 % (0-4); Lymphocytes % 8.6 %; Nucleated Red Blood Cells 0.2 /100 WBC (0)
[2018-04-19 03:37] LABS: Hematocrit 22.3 % (37.5-50.1); Hemoglobin 7.4 g/dL (12.9-16.9); Immature Platelets 6.7 % (1.1-6.1); Lymphocytes # 0.8 K/mcL (0.6-4.6); Mean Corpuscular HGB Conc 33.2 g/dL (31.6-35.5); Mean Corpuscular Hemoglobin 30.2 pg (28.0-33.3); Mean Platelet Volume 11.2 fL (9.4-12.4); Monocytes # 0.8 K/mcL (0.0-1.3); Monocytes % 8.3 %; Neutrophils # 7.7 K/mcL (1.6-8.9); Red Blood Count 2.45 M/mcL (4.19-5.50); Red Cell Distribution Width 14.6 % (11.5-14.5); Segmented Neutrophils % 82.8 %
[2018-04-19 03:41] LABS: INR 1.5; Prothrombin Time 16.8 Seconds (9.4-12.1)
[2018-04-19 03:44] LABS: Platelet Count 77 K/mcL (140-400)
[2018-04-19] MEDS: Clindamycin 900 MG/50 ML 900 MG/50 ML IV.SOLN IVPB SCH (04:03)
[2018-04-19] MEDS: Insulin LISPRO 300 UNITS/3 ML VIAL SQ SCH ×4 (04:10→20:02)
[2018-04-19] MEDS: *HR* FentaNYL (PF) 100 MCG/2 ML VIAL IVP PRN ×2 (06:47→18:58)
--- NOTE | 2018-04-19 08:11 | Cardiothoracic Progress Note ---
Date of Encounter: 04/19/18 Time of Encounter: 08:08 - Assessment and plan (1) Coronary artery disease Current Visit: No Status: Acute The patient is recovering well from his CABG4 and modified Maze procedure, and mediastinal reexploration. He is currently extubated and breathing comfortably.. He is breathing comfortably. He remains in normal sinus rhythm on an amiodarone drip. The patient will be monitored in the ICU today. The assessment and plan as outlined above was discussed with the patient and/or family members who expressed understanding and agreement. All questions were answered. Qualifiers: Coronary Disease-Associated Artery/Lesion type: [place] artery [place] vs. transplanted heart: [place] heart Associated angina: with stable angina Qualified Code(s): I25.118 - Atherosclerotic heart disease of [place] coronary artery with other forms of angina pectoris - Subjective Procedure(s) Performed: POD#3 S/P CABG4, modified Maze procedure POD#1 S/P Mediastinal reexploration Interval history: The patient remained hemodynamic stable overnight. He is currently extubated and breathing comfortably. He had minimal chest tube drainage overnight. He has no complaints. Vital Signs, Last 4 Hours Temp Pulse Resp BP Pulse Ox 04/19/18 07:44 16 95 04/19/18 07:19 98.1 F 04/19/18 06:00 69 17 106/49 92 04/19/18 05:00 98.8 F 70 16 107/48 93 Oxgyen Flow Rate Oxygen Flow Rate (LPM) 0 Clinical Data, last 8 Hours Output, Chest Tube Drainage 160 Amount [Mediastinal #2] Output, Chest Tube Drainage 0 Amount [Mediastinal #2] Output, Chest Tube Drainage 0 Amount [Mediastinal #2] Output, Chest Tube Drainage 0 Amount [Mediastinal #2] Output, Chest Tube Drainage 5 Amount [Mediastinal #2] Output, Chest Tube Drainage 0 Amount [Mediastinal #2] Output, Chest Tube Drainage 90 Amount [Mediastinal #1] Output, Chest Tube Drainage 30 Amount [Mediastinal #1] Output, Chest Tube Drainage 50 Amount [Mediastinal #1] Output, Chest Tube Drainage 40 Amount [Mediastinal #1] Output, Chest Tube Drainage 34 Amount [Mediastinal #1] Output, Chest Tube Drainage 38 Amount [Mediastinal #1] Weight 04/17/18 04/18/18 04/19/18 23:59 23:59 23:59 Weight 154.8 kg 152.8 kg - Physical Examination General: Conversant, No Apparent Distress Neck: No JVD, Normal carotid pulses Cardiac: Reg Rate and Rhythm, Normal S1 and S2, No Murmur Incision: No signs of infection, Dry/intact dressing Sternum: Stable Chest tubes: Minimal drainage, Other (No air leak) Pacing Wires: In place Lungs: Normal Breath Sounds, No Wheeze, Rales, Rhonchi Neuro: Alert and responsive, No focal deficits noted Vascular: Normal capillary refill Extremities: No Clubbing, No Cyanosis, No Edema - Labs 04/19/18 03:00 04/19/18 03:00 Lab Results, Last 24 hours 04/18/18 04/18/18 04/18/18 16:16 16:16 16:16 WBC 17.0 H Hgb 8.7 L Hct 25.5 L Plt Count 114 L INR 1.4 APTT 30.0 Sodium 132 L Potassium 4.2 Chloride 102 Carbon Dioxide 25 BUN 30 H Creatinine 1.09 Glucose 199 H Calcium 7.6 L Magnesium 1.9 Total Bilirubin AST ALT Alkaline Phosphatase 04/19/18 04/19/18 04/19/18 03:00 03:00 03:00 WBC 9.3 Hgb 7.4 L Hct 22.3 L Plt Count 77 L INR 1.5 APTT Sodium 136 Potassium 3.5 Chloride 106 Carbon Dioxide 24 BUN 26 H Creatinine 0.95 Glucose 134 H Calcium 8.2 L Magnesium Total Bilirubin 2.1 H AST 83 H ALT 130 H Alkaline Phosphatase 45 - Imaging Chest Xray: image reviewed (No pneumothorax. Minimal bibasilar atelectasis.) - VTE Reasons for not Prescribing Prophylaxis: Medical contraindication Consult Discharge Plan - Plan Referrals: Jyothi Vera [Primary Care Provider] -
[2018-04-19] MEDS ORDERED: *HR* Dextrose 50 % in Water (Syg) 50 ML SYRINGE IVP PRN (08:13)
[2018-04-19] MEDS ORDERED: D5% in Water 1,000 ML IVC PRN (08:13)
[2018-04-19] MEDS ORDERED: Dextrose Gel 15 GM/37.5 ML TUBE PO PRN ×2 (08:13)
[2018-04-19] MEDS: Aspirin Enteric Coated 81 MG Tablet PO SCH (08:26)
[2018-04-19] MEDS: Chlorhexidine Rinse 15 ML MOUTHWASH MM SCH ×2 (08:27→20:01)
[2018-04-19] MEDS: Pantoprazole 40 MG VIAL IVP SCH (08:27)
[2018-04-19] MEDS: Norepinephrine 4 MG in D5% in Water 250 ML IVC SCH ×2 (11:54→14:35)
[2018-04-19] MEDS: Nitroglycerin 25 MG/250 ML INFUS..BTL IVC SCH ×2 (11:54→16:20)
[2018-04-19] MEDS: niCARdipine 40 MG/200 ML MLS IVC SCH (11:54)
[2018-04-19] MEDS: 0.9 % Sodium Chloride 1,000 ML IVC SCH (14:37)
[2018-04-20] MEDS: Amiodarone Premix 360 MG/200 ML BAG IVC SCH ×3 (00:48→20:13)
[2018-04-20 03:52] LABS: Eosinophils % 0.2 %; Hemoglobin 7.8 g/dL (12.9-16.9); Immature Granulocytes % 0.5 % (0-4); Lymphocytes # 1.9 K/mcL (0.6-4.6); Lymphocytes % 14.3 %; Mean Corpuscular HGB Conc 33.9 g/dL (31.6-35.5); Mean Corpuscular Hemoglobin 30.7 pg (28.0-33.3); Mean Corpuscular Volume 90.6 fL (83.0-100.0); Monocytes # 1.6 K/mcL (0.0-1.3); Monocytes % 11.9 %; Neutrophils # 9.6 K/mcL (1.6-8.9); Nucleated Red Blood Cells 0.5 /100 WBC (0); Platelet Count 107 K/mcL (140-400); Red Blood Count 2.54 M/mcL (4.19-5.50); Red Cell Distribution Width 15.5 % (11.5-14.5); Segmented Neutrophils % 73.1 %
[2018-04-20 03:59] LABS: INR 1.5; Prothrombin Time 16.6 Seconds (9.4-12.1)
[2018-04-20 05:41] LABS: Hematocrit 23.7 % (37.5-50.1); Hemoglobin 8.1 g/dL (12.9-16.9); Mean Corpuscular HGB Conc 34.2 g/dL (31.6-35.5); Mean Corpuscular Hemoglobin 30.7 pg (28.0-33.3); Mean Corpuscular Volume 89.8 fL (83.0-100.0); Mean Platelet Volume 10.8 fL (9.4-12.4); Platelet Count 111 K/mcL (140-400); Red Blood Count 2.64 M/mcL (4.19-5.50); Red Cell Distribution Width 15.4 % (11.5-14.5)
[2018-04-20 05:59] LABS: Alanine Aminotransferase 94 Units/L (7-52); Albumin 3.1 g/dL (3.5-5.7); Albumin/Globulin Ratio 1.7 (1.1-2.2); Alkaline Phosphatase 49 Units/L (34-104); Aspartate Amino Transferase 49 Units/L (13-39); BUN/Creatinine Ratio 27 (6-26); Bilirubin,Direct 0.4 mg/dL (0.0-0.2); Bilirubin,Indirect 1.3 mg/dL (0.0-1.2); Bilirubin,Total 1.7 mg/dL (0.3-1.0); Blood Urea Nitrogen 24 mg/dL (8-23); Calcium 7.7 mg/dL (8.6-10.3); Carbon Dioxide 21 mEq/L (23-29); Chloride 106 mEq/L (98-107); Globulin 1.8 g/dL (2.4-3.5); Glucose 138 mg/dL (70-105); Osmolality,Calculated 286 (280-300); Potassium 3.5 mEq/L (3.5-5.1); Sodium 135 mEq/L (136-145); Total Protein 4.9 g/dL (6.4-8.9); eGFR For Non-African Americans > 60 (> 60)
[2018-04-20 07:37] LABS: INR 1.4
[2018-04-20] MEDS: niCARdipine 40 MG/200 ML MLS IVC SCH ×3 (08:29→12:00)
[2018-04-20] MEDS: Nitroglycerin 25 MG/250 ML INFUS..BTL IVC SCH ×4 (08:29→16:02)
[2018-04-20] MEDS: Aspirin Enteric Coated 81 MG Tablet PO SCH (08:37)
[2018-04-20] MEDS: *HR* OxyCODONE ER (12 HR) 10 MG TABLET PO PRN (08:37)
[2018-04-20] MEDS: Chlorhexidine Rinse 15 ML MOUTHWASH MM SCH ×2 (08:38→20:00)
[2018-04-20] MEDS: Pantoprazole 40 MG VIAL IVP SCH (08:38)
[2018-04-20] MEDS: Insulin LISPRO 300 UNITS/3 ML VIAL SQ SCH ×4 (08:39→20:01)
--- NOTE | 2018-04-20 09:58 | Cardiothoracic Progress Note ---
Date of Encounter: 04/20/18 Time of Encounter: 09:55 - Assessment and plan (1) Coronary artery disease Current Visit: No Status: Acute The patient is recovering well from his CABG4 and modified Maze procedure, and mediastinal reexploration. He is breathing comfortably. He remains in normal sinus rhythm on an amiodarone drip. His temperature was elevated this morning at 102.7 degrees Fahrenheit. Blood cultures and urine culture will be performed. The patient's Gonsales catheter will be removed. The patient will be monitored in the ICU today. The assessment and plan as outlined above was discussed with the patient and/or family members who expressed understanding and agreement. All questions were answered. Qualifiers: Coronary Disease-Associated Artery/Lesion type: [place] artery [place] vs. transplanted heart: [place] heart Associated angina: with stable angina Qualified Code(s): I25.118 - Atherosclerotic heart disease of [place] coronary artery with other forms of angina pectoris - Subjective Procedure(s) Performed: POD#3 S/P CABG4, modified Maze procedure POD#1 S/P Mediastinal reexploration Interval history: The patient remained hemodynamic stable overnight. He is currently extubated and breathing comfortably. He had minimal chest tube drainage overnight. He has no complaints. His temperature was elevated this morning at 102.7 degrees overnight. Vital Signs, Last 4 Hours Temp Pulse Resp BP Pulse Ox 04/20/18 09:00 102.7 F H 87 16 107/56 94 04/20/18 08:00 99.6 F 92 16 120/53 94 04/20/18 07:45 99.6 F 04/20/18 07:00 96 16 155/62 94 04/20/18 05:58 75 20 126/89 95 Oxgyen Flow Rate Oxygen Flow Rate (LPM) 0 Clinical Data, last 8 Hours Output, Chest Tube Drainage 140 Amount [Mediastinal #2] Output, Chest Tube Drainage 10 Amount [Mediastinal #2] Output, Chest Tube Drainage 100 Amount [Mediastinal #1] Output, Chest Tube Drainage 70 Amount [Mediastinal #1] Weight 04/18/18 04/19/18 04/20/18 23:59 23:59 23:59 Weight 152.8 kg 156 kg - Physical Examination General: Conversant, No Apparent Distress Neck: No JVD, Normal carotid pulses Cardiac: Reg Rate and Rhythm, Normal S1 and S2, No Murmur Incision: No signs of infection, Dry/intact dressing Sternum: Stable Chest tubes: Minimal drainage, Other (No air leak) Lungs: Normal Breath Sounds, No Wheeze, Rales, Rhonchi Neuro: Alert and responsive, No focal deficits noted Vascular: Normal capillary refill Skin: No rashes noted on visualized skin Musculoskeletal: No Chest Wall Tenderness Extremities: No Clubbing, No Cyanosis, No Edema - Labs 04/20/18 04:25 04/20/18 04:25 Lab Results, Last 24 hours 04/20/18 04/20/18 04/20/18 03:30 03:30 04:25 WBC 13.1 H Hgb 7.8 L Hct 23.0 L Plt Count 107 L INR 1.5 Sodium 135 L Potassium 3.5 Chloride 106 Carbon Dioxide 21 L BUN 24 H Creatinine 0.90 Glucose 138 H Calcium 7.7 L Total Bilirubin 1.7 H AST 49 H ALT 94 H Alkaline Phosphatase 49 04/20/18 04/20/18 04:25 04:52 WBC 11.7 H Hgb 8.1 L Hct 23.7 L Plt Count 111 L INR 1.4 Sodium Potassium Chloride Carbon Dioxide BUN Creatinine Glucose Calcium Total Bilirubin AST ALT Alkaline Phosphatase - Imaging Chest Xray: image reviewed (No pneumothorax. Improved aeration in both lung moralez. No pleural effusions.) - VTE Reasons for not Prescribing Prophylaxis: Medical contraindication Consult Discharge Plan - Plan Referrals: Jyothi Vera [Primary Care Provider] -
[2018-04-20] MEDS: 0.9 % Sodium Chloride 1,000 ML IVC SCH ×2 (11:27→12:18)
[2018-04-20] MEDS: Norepinephrine 4 MG in D5% in Water 250 ML IVC SCH ×2 (12:01→15:33)
[2018-04-21] MEDS: Amiodarone Premix 360 MG/200 ML BAG IVC SCH ×4 (01:49→21:00)
[2018-04-21 03:45] LABS: INR 1.6; Prothrombin Time 17.8 Seconds (9.4-12.1)
[2018-04-21 03:48] LABS: Basophils % 0.1 %; Eosinophils # 0.2 K/mcL (0.0-0.6); Hemoglobin 7.8 g/dL (12.9-16.9); Immature Granulocytes % 0.6 % (0-4); Immature Platelets 6.5 % (1.1-6.1); Lymphocytes # 1.3 K/mcL (0.6-4.6); Lymphocytes % 13.1 %; Mean Corpuscular HGB Conc 33.9 g/dL (31.6-35.5); Mean Corpuscular Hemoglobin 30.5 pg (28.0-33.3); Mean Corpuscular Volume 89.8 fL (83.0-100.0); Mean Platelet Volume 11.4 fL (9.4-12.4); Monocytes # 0.9 K/mcL (0.0-1.3); Monocytes % 9.2 %; Neutrophils # 7.5 K/mcL (1.6-8.9); Nucleated Red Blood Cells 1.2 /100 WBC (0); Red Blood Count 2.56 M/mcL (4.19-5.50); Red Cell Distribution Width 15.4 % (11.5-14.5)
[2018-04-21 03:49] LABS: Platelet Count 88 K/mcL (140-400)
[2018-04-21 03:58] LABS: BUN/Creatinine Ratio 24 (6-26); Bilirubin,Total 1.9 mg/dL (0.3-1.0); Blood Urea Nitrogen 22 mg/dL (8-23); Calcium 7.6 mg/dL (8.6-10.3); Carbon Dioxide 23 mEq/L (23-29); Chloride 103 mEq/L (98-107); Glucose 110 mg/dL (70-105); Osmolality,Calculated 286 (280-300); Potassium 3.4 mEq/L (3.5-5.1); Sodium 136 mEq/L (136-145); eGFR For Non-African Americans > 60 (> 60)
[2018-04-21 03:59] LABS: Alanine Aminotransferase 70 Units/L (7-52); Albumin 2.8 g/dL (3.5-5.7); Albumin/Globulin Ratio 1.6 (1.1-2.2); Alkaline Phosphatase 50 Units/L (34-104); Aspartate Amino Transferase 38 Units/L (13-39); Bilirubin,Direct 0.7 mg/dL (0.0-0.2); Bilirubin,Indirect 1.2 mg/dL (0.0-1.2); Globulin 1.7 g/dL (2.4-3.5); Total Protein 4.5 g/dL (6.4-8.9)
--- NOTE | 2018-04-21 07:45 | Cardiothoracic Progress Note ---
Date of Encounter: 04/21/18 Time of Encounter: 07:43 - Assessment and plan (1) Coronary artery disease Current Visit: No Status: Acute The patient is recovering well from his CABG4 and modified Maze procedure, and mediastinal reexploration. He remains in atrial fibrillation on an amiodarone drip. The amiodarone drip will be increased to 1 mg/min. The patient's liver function studies have returned to his baseline. The patient will be monitored in the ICU today. The assessment and plan as outlined above was discussed with the patient and/or family members who expressed understanding and agreement. All questions were answered. Qualifiers: Coronary Disease-Associated Artery/Lesion type: [place] artery [place] vs. transplanted heart: [place] heart Associated angina: with stable angina Qualified Code(s): I25.118 - Atherosclerotic heart disease of [place] coronary artery with other forms of angina pectoris - Subjective Procedure(s) Performed: POD#6 S/P CABG4, modified Maze procedure POD#3 S/P Mediastinal reexploration Interval history: The patient remained hemodynamic stable overnight. He is breathing comfortably. He remains in atrial fibrillation. He had less chest tube drainage overnight. He has no complaints. Vital Signs, Last 4 Hours Temp Pulse Resp BP Pulse Ox 04/21/18 06:00 113 22 115/73 96 04/21/18 05:24 97.5 F L 04/21/18 05:00 104 16 103/54 94 04/21/18 04:00 105 16 99/62 93 Oxgyen Flow Rate Oxygen Flow Rate (LPM) 0 Clinical Data, last 8 Hours Output, Chest Tube Drainage 100 Amount [Mediastinal #2] Output, Chest Tube Drainage 15 Amount [Mediastinal #1] Output, Chest Tube Drainage 80 Amount [Mediastinal #1] Weight 04/19/18 04/20/18 04/21/18 23:59 23:59 23:59 Weight 159.2 kg - Physical Examination General: Conversant, No Apparent Distress Neck: No JVD, Normal carotid pulses Cardiac: Normal S1 and S2, No Murmur, Other (Irregular rate and rhythm (atrial fibrillation)) Incision: No signs of infection, Dry/intact dressing Sternum: Stable Chest tubes: Minimal drainage, Other (No air leak) Pacing Wires: In place Lungs: Normal Breath Sounds, No Wheeze, Rales, Rhonchi Neuro: Alert and responsive, No focal deficits noted Vascular: Normal capillary refill Musculoskeletal: No Chest Wall Tenderness Extremities: No Clubbing, No Cyanosis, No Edema - Labs 04/21/18 03:20 04/21/18 03:20 Lab Results, Last 24 hours 04/21/18 04/21/18 04/21/18 03:20 03:20 03:20 WBC 10.0 Hgb 7.8 L Hct 23.0 L Plt Count 88 L INR 1.6 Sodium 136 Potassium 3.4 L Chloride 103 Carbon Dioxide 23 BUN 22 Creatinine 0.92 Glucose 110 H Calcium 7.6 L Total Bilirubin 1.9 H AST 38 ALT 70 H Alkaline Phosphatase 50 - Imaging Chest Xray: image reviewed (No pneumothorax. Minimal atelectasis/infiltrates.) - VTE Reasons for not Prescribing Prophylaxis: Medical contraindication Consult Discharge Plan - Plan Referrals: Jyothi Vera [Primary Care Provider] -
[2018-04-21] MEDS: Nitroglycerin 25 MG/250 ML INFUS..BTL IVC SCH ×5 (08:24→23:42)
[2018-04-21] MEDS: niCARdipine 40 MG/200 ML MLS IVC SCH ×3 (08:24→21:02)
[2018-04-21] MEDS: Insulin LISPRO 300 UNITS/3 ML VIAL SQ SCH ×4 (08:25→21:01)
[2018-04-21] MEDS: 0.9 % Sodium Chloride 1,000 ML IVC SCH (08:28)
[2018-04-21] MEDS: Chlorhexidine Rinse 15 ML MOUTHWASH MM SCH ×2 (08:37→21:01)
[2018-04-21] MEDS: Pantoprazole 40 MG VIAL IVP SCH (08:37)
[2018-04-21] MEDS: Aspirin Enteric Coated 81 MG Tablet PO SCH (08:37)
[2018-04-21 10:32] LABS: Acinetobacter baumannii by PCR Not Detected (Not Detect); Candida albicans by PCR Not Detected (Not Detect); Candida glabrata by PCR Not Detected (Not Detect); Candida krusei by PCR Not Detected (Not Detect); Candida parapsilosis by PCR Not Detected (Not Detect); Candida tropicalis by PCR Not Detected (Not Detect); Enterobacter cloacae Cmplx PCR Not Detected (Not Detect); Enterobacteriaceae by PCR Not Detected (Not Detect); Enterococcus by PCR Not Detected (Not Detect); Escherichia coli by PCR Not Detected (Not Detect); Klebsiella oxytoca by PCR Not Detected (Not Detect); Klebsiella pneumoniae by PCR Not Detected (Not Detect); Proteus by PCR Not Detected (Not Detect); Pseudomonas aeruginosa by PCR Not Detected (Not Detect); Serratia marcescens by PCR Not Detected (Not Detect); Staphylococcus aureus by PCR Not Detected (Not Detect); Staphylococcus by PCR Not Detected (Not Detect); Streptococcus agalactiae(B)PCR Not Detected (Not Detect); Streptococcus by PCR Not Detected (Not Detect); Streptococcus pneumoniae PCR Not Detected (Not Detect); Streptococcus pyogenes (A) PCR Not Detected (Not Detect)
[2018-04-21] MEDS: MetroNIDAZOLE 500 MG/100 ML 500 MG/100 ML BAG IVPB SCH ×2 (11:58→21:00)
[2018-04-21] MEDS: Cefepime HCl 2,000 MG in Water for inj. (sterile) 20 ML 20 ML IVP SCH ×2 (11:58→21:01)
[2018-04-21] MEDS ORDERED: Albumin Human 5% 25.0 GM/500 ML VIAL ONE (12:31)
[2018-04-21] MEDS ORDERED: Aminoglycoside Consult 1 EACH MC ONE (13:55)
--- NOTE | 2018-04-21 13:56 | Event Note ---
Date of Encounter: 04/21/18 Time of Encounter: 13:53 The patient spiked a temperature to 102.7 yesterday and I discussed placing the patient on antibiotic therapy with the on-call circuit court magistrate, Dr. Damion Osullivan. After examining the patient and reviewing the laboratory results, and broad- spectrum antibiotic coverage (including aztreonam, metronidazole, and vancomycin ) was discussed and it was decided that the patient would not be placed on empiric antibiotics unless the patient remained febrile. This morning the patient remained afebrile and he had a normal white count without left shift. No blood culture results were recorded at morning rounds. Later in the morning, the laboratory reported that the blood cultures had gram- negative arron growth. Antibiotics were initiated; however, the aztreonam was replaced with cefepime to include better pseudomonas coverage after discussion with the ICU pharmacist. A PICC will be placed in the patient's [place] introducer will be removed. These findings were discussed with the patient and he has no questions.
--- NOTE | 2018-04-21 16:05 | Electrocardiograph Report ---
[place] [address] Test Date: 2018-04-17 Pat Name: Av Lima Department: 112 Room: [facility] Gender: M Hr Business Partner: SEJAL : 1955 Requested By: Mal Flores Order Number: [id number] Reading MD: Forrest Foster Measurements Intervals [place] Rate: 117 P: NE: 0 QRS: 7 QRSD: 126 T: 111 QT: 322 QTc: 391 Interpretive Statements ATRIAL FIBRILLATION WITH RAPID VENTRICULAR RESPONSE WITH ABERRANT CONDUCTION OR VENTRICULAR PREMATURE COMPLEXES MODERATE INTRAVENTRICULAR CONDUCTION DELAY MODERATE T-WAVE ABNORMALITY, CONSIDER LATERAL ISCHEMIA Electronically Signed On 04-21-2018 16:02:53 EDT by Forrest Foster
[2018-04-21] MEDS: Norepinephrine 4 MG in D5% in Water 250 ML IVC SCH (16:13)
--- NOTE | 2018-04-21 16:42 | Electrocardiograph Report ---
[address] [place] [address] Test Date: 2018-04-18 Pat Name: Av Lima Department: 112 Room: [facility] Gender: M Business Department Chair: AF : 1955 Requested By: Mal Flores Order Number: [id number] Reading MD: Forrest Foster Measurements Intervals [place] Rate: 86 P: 76 GA: 153 QRS: -14 QRSD: 139 T: 105 QT: 406 QTc: 449 Interpretive Statements SINUS RHYTHM INTRAVENTRICULAR CONDUCTION DELAY POSSIBLE LATERAL MYOCARDIAL INFARCTION, OF INDETERMINATE AGE Electronically Signed On 04-21-2018 16:40:43 EDT by Forrest Foster
[2018-04-21] MEDS: *HR* OxyCODONE ER (12 HR) 10 MG TABLET PO PRN (21:00)
[2018-04-22] MEDS: 0.9 % Sodium Chloride 1,000 ML IVC SCH ×2 (02:20→22:40)
[2018-04-22] MEDS: Amiodarone Premix 360 MG/200 ML BAG IVC SCH ×4 (02:34→20:17)
[2018-04-22] MEDS: Cefepime HCl 2,000 MG in Water for inj. (sterile) 20 ML 20 ML IVP SCH ×3 (04:53→20:45)
[2018-04-22] MEDS: MetroNIDAZOLE 500 MG/100 ML 500 MG/100 ML BAG IVPB SCH ×3 (04:53→20:46)
[2018-04-22] MEDS: *HR* OxyCODONE ER (12 HR) 10 MG TABLET PO PRN ×2 (05:07→20:45)
[2018-04-22 05:17] LABS: Hemoglobin 7.6 g/dL (12.9-16.9)
[2018-04-22 05:19] LABS: Basophils % 0.1 %; Eosinophils # 0.2 K/mcL (0.0-0.6); Eosinophils % 2.4 %; Immature Granulocytes % 0.8 % (0-4); Immature Platelets 7.3 % (1.1-6.1); Lymphocytes # 1.5 K/mcL (0.6-4.6); Lymphocytes % 14.8 %; Mean Corpuscular Hemoglobin 29.9 pg (28.0-33.3); Mean Corpuscular Volume 90.6 fL (83.0-100.0); Mean Platelet Volume 10.8 fL (9.4-12.4); Monocytes # 1.2 K/mcL (0.0-1.3); Monocytes % 11.8 %; Neutrophils # 6.9 K/mcL (1.6-8.9); Nucleated Red Blood Cells 0.6 /100 WBC (0); Red Blood Count 2.54 M/mcL (4.19-5.50); Red Cell Distribution Width 15.5 % (11.5-14.5); Segmented Neutrophils % 70.1 %
[2018-04-22 05:22] LABS: Platelet Count 80 K/mcL (140-400)
[2018-04-22 05:24] LABS: INR 1.8; Prothrombin Time 20.6 Seconds (9.4-12.1)
[2018-04-22 05:35] LABS: Albumin 2.8 g/dL (3.5-5.7); Albumin/Globulin Ratio 1.5 (1.1-2.2); BUN/Creatinine Ratio 20 (6-26); Bilirubin,Direct 0.8 mg/dL (0.0-0.2); Bilirubin,Indirect 1.2 mg/dL (0.0-1.2); Blood Urea Nitrogen 18 mg/dL (8-23); Calcium 7.3 mg/dL (8.6-10.3); Carbon Dioxide 22 mEq/L (23-29); Chloride 105 mEq/L (98-107); Globulin 1.9 g/dL (2.4-3.5); Glucose 125 mg/dL (70-105); Osmolality,Calculated 279 (280-300); Potassium 3.3 mEq/L (3.5-5.1); Sodium 133 mEq/L (136-145); Total Protein 4.7 g/dL (6.4-8.9); eGFR For Non-African Americans > 60 (> 60)
--- NOTE | 2018-04-22 06:43 | Cardiothoracic Progress Note ---
Date of Encounter: 04/22/18 Time of Encounter: 06:41 - Assessment and plan (1) Coronary artery disease Current Visit: No Status: Acute The patient is recovering well from his CABG4 and modified Maze procedure, and mediastinal reexploration. He had a low-grade temp last evening, but states that he feels well. His WBC is normal and there is no left shift on the differential. The antibiotics will be continued and tailored to the microbiology ID. He remains in atrial fibrillation on an amiodarone drip. The amiodarone drip will be increased to 1 mg/min. The patient's liver function studies have returned to his baseline. The patient will be monitored in the ICU today. The assessment and plan as outlined above was discussed with the patient and/or family members who expressed understanding and agreement. All questions were answered. Qualifiers: Coronary Disease-Associated Artery/Lesion type: [place] artery [place] vs. transplanted heart: [place] heart Associated angina: with stable angina Qualified Code(s): I25.118 - Atherosclerotic heart disease of [place] coronary artery with other forms of angina pectoris - Subjective Procedure(s) Performed: POD#7 S/P CABG4, modified Maze procedure POD#4 S/P Mediastinal reexploration Interval history: The patient remained hemodynamic stable overnight. He is breathing comfortably. He remains in atrial fibrillation. He had less chest tube drainage overnight. He has no complaints. Vital Signs, Last 4 Hours Temp Pulse Resp BP Pulse Ox 04/22/18 05:00 98 16 95/69 95 04/22/18 04:00 98.3 F 89 16 104/63 95 04/22/18 03:55 14 95 04/22/18 03:00 89 16 106/66 94 Oxgyen Flow Rate Oxygen Flow Rate (LPM) 0 Clinical Data, last 8 Hours Output, Chest Tube Drainage 20 Amount [Mediastinal #2] Output, Chest Tube Drainage 90 Amount [Mediastinal #2] Output, Chest Tube Drainage 85 Amount [Mediastinal #1] Output, Chest Tube Drainage 25 Amount [Mediastinal #1] Output, Urine Amount 0 Weight 04/20/18 04/21/18 04/22/18 23:59 23:59 23:59 Weight 159.2 kg 153.12 kg - Physical Examination General: Conversant, No Apparent Distress Neck: No JVD, Normal carotid pulses Cardiac: Normal S1 and S2, No Murmur, Other (Irregular rate and rhythm (atrial fibrillation)) Incision: No signs of infection, Dry/intact dressing Sternum: Stable Chest tubes: Minimal drainage, Other (No air leak) Pacing Wires: In place Lungs: Normal Breath Sounds, No Wheeze, Rales, Rhonchi Neuro: Alert and responsive, No focal deficits noted Vascular: Normal capillary refill Musculoskeletal: No Chest Wall Tenderness Extremities: No Clubbing, No Cyanosis, No Edema - Labs 04/22/18 04:55 04/22/18 04:55 Lab Results, Last 24 hours 04/22/18 04/22/18 04/22/18 04:55 04:55 04:55 WBC 9.9 Hgb 7.6 L Hct 23.0 L Plt Count 80 L INR Sodium 133 L Potassium 3.3 L Chloride 105 Carbon Dioxide 22 L BUN 18 Creatinine 0.90 Glucose 125 H Calcium 7.3 L Total Bilirubin 2.0 H AST 29 ALT 49 Alkaline Phosphatase 50 04/22/18 04:55 WBC Hgb Hct Plt Count INR 1.8 Sodium Potassium Chloride Carbon Dioxide BUN Creatinine Glucose Calcium Total Bilirubin AST ALT Alkaline Phosphatase - VTE Reasons for not Prescribing Prophylaxis: Medical contraindication Consult Discharge Plan - Plan Referrals: Jyothi Vera [Primary Care Provider] -
[2018-04-22] MEDS: niCARdipine 40 MG/200 ML MLS IVC SCH ×4 (06:49→22:26)
[2018-04-22] MEDS: Insulin LISPRO 300 UNITS/3 ML VIAL SQ SCH ×4 (08:15→20:46)
[2018-04-22] MEDS: Nitroglycerin 25 MG/250 ML INFUS..BTL IVC SCH ×4 (08:15→20:59)
[2018-04-22] MEDS: Pantoprazole 40 MG VIAL IVP SCH (08:18)
[2018-04-22] MEDS: Chlorhexidine Rinse 15 ML MOUTHWASH MM SCH ×2 (08:18→20:45)
[2018-04-22] MEDS: Aspirin Enteric Coated 81 MG Tablet PO SCH (08:19)
[2018-04-22] MEDS: Norepinephrine 4 MG in D5% in Water 250 ML IVC SCH (13:18)
[2018-04-22 23:19] LABS: Acinetobacter baumannii by PCR Not Detected (Not Detect); Candida albicans by PCR Not Detected (Not Detect); Candida glabrata by PCR Not Detected (Not Detect); Candida krusei by PCR Not Detected (Not Detect); Candida parapsilosis by PCR Not Detected (Not Detect); Candida tropicalis by PCR Not Detected (Not Detect); Enterobacter cloacae Cmplx PCR Not Detected (Not Detect); Enterobacteriaceae by PCR Not Detected (Not Detect); Enterococcus by PCR Not Detected (Not Detect); Escherichia coli by PCR Not Detected (Not Detect); Klebsiella oxytoca by PCR Not Detected (Not Detect); Klebsiella pneumoniae by PCR Not Detected (Not Detect); Proteus by PCR Not Detected (Not Detect); Pseudomonas aeruginosa by PCR Not Detected (Not Detect); Serratia marcescens by PCR Not Detected (Not Detect); Staphylococcus aureus by PCR Not Detected (Not Detect); Staphylococcus by PCR Not Detected (Not Detect); Streptococcus agalactiae(B)PCR Not Detected (Not Detect); Streptococcus by PCR Not Detected (Not Detect); Streptococcus pneumoniae PCR Not Detected (Not Detect); Streptococcus pyogenes (A) PCR Not Detected (Not Detect); blaKPC Carbapenem-Resist Gene Not Detected (Not Detect); mecA Methicillin-Resist Gene Not Detected (Not Detect); vanA/B Vancomycin-Resist Genes Not Detected (Not Detect)
[2018-04-23] MEDS: Amiodarone Premix 360 MG/200 ML BAG IVC SCH ×4 (01:52→19:45)
[2018-04-23 03:57] LABS: Basophils % 0.3 %; Eosinophils # 0.5 K/mcL (0.0-0.6); Eosinophils % 4.2 %; Hematocrit 25.1 % (37.5-50.1); Hemoglobin 8.3 g/dL (12.9-16.9); Immature Granulocytes % 0.9 % (0-4); Lymphocytes % 16.6 %; Mean Corpuscular HGB Conc 33.1 g/dL (31.6-35.5); Mean Corpuscular Hemoglobin 29.6 pg (28.0-33.3); Mean Corpuscular Volume 89.6 fL (83.0-100.0); Monocytes # 1.3 K/mcL (0.0-1.3); Monocytes % 10.8 %; Neutrophils # 7.9 K/mcL (1.6-8.9); Nucleated Red Blood Cells 0.8 /100 WBC (0); Platelet Count 104 K/mcL (140-400); Red Cell Distribution Width 15.5 % (11.5-14.5); Segmented Neutrophils % 67.2 %
[2018-04-23] MEDS: Cefepime HCl 2,000 MG in Water for inj. (sterile) 20 ML 20 ML IVP SCH ×2 (04:14→12:34)
[2018-04-23] MEDS: MetroNIDAZOLE 500 MG/100 ML 500 MG/100 ML BAG IVPB SCH ×2 (04:14→12:34)
[2018-04-23 04:54] LABS: Platelet Estimate Slight Decrease (Normal)
[2018-04-23 05:11] LABS: BUN/Creatinine Ratio 20 (6-26); Blood Urea Nitrogen 14 mg/dL (8-23); Calcium 7.4 mg/dL (8.6-10.3); Carbon Dioxide 22 mEq/L (23-29); Chloride 103 mEq/L (98-107); Glucose 124 mg/dL (70-105); Osmolality,Calculated 276 (280-300); Potassium 3.6 mEq/L (3.5-5.1); Sodium 132 mEq/L (136-145); eGFR For Non-African Americans > 60 (> 60)
[2018-04-23] MEDS: *HR* OxyCODONE ER (12 HR) 10 MG TABLET PO PRN (05:30)
--- NOTE | 2018-04-23 06:25 | Cardiothoracic Progress Note ---
Date of Encounter: 04/23/18 Time of Encounter: 06:22 - Assessment and plan (1) Coronary artery disease Current Visit: No Status: Acute The patient is recovering well from his CABG4 and modified Maze procedure, and mediastinal reexploration. He had a low-grade temp last evening, but states that he feels well. His WBC is normal and there is no left shift on the differential. The antibiotics will be continued and tailored to the microbiology ID. He remains in atrial fibrillation on an amiodarone drip at 1 mg/min. The patient's liver function studies have returned to his baseline. The patient will be monitored in the ICU today. The assessment and plan as outlined above was discussed with the patient and/or family members who expressed understanding and agreement. All questions were answered. Qualifiers: Coronary Disease-Associated Artery/Lesion type: [place] artery [place] vs. transplanted heart: [place] heart Associated angina: with stable angina Qualified Code(s): I25.118 - Atherosclerotic heart disease of [place] coronary artery with other forms of angina pectoris - Subjective Procedure(s) Performed: POD#8 S/P CABG4, modified Maze procedure POD#5 S/P Mediastinal reexploration Interval history: The patient remained hemodynamic stable overnight. He is breathing comfortably. He remains in atrial fibrillation. He had less chest tube drainage overnight. He has no complaints. Vital Signs, Last 4 Hours Temp Pulse Resp BP Pulse Ox 04/23/18 06:00 82 20 100/52 95 04/23/18 05:00 80 15 93/58 98 04/23/18 04:00 99 F 90 16 91/61 96 04/23/18 03:47 18 97 04/23/18 03:00 87 14 99/71 95 Oxgyen Flow Rate Oxygen Flow Rate (LPM) 0 Clinical Data, last 8 Hours Output, Chest Tube Drainage 40 Amount [Mediastinal #2] Output, Chest Tube Drainage 75 Amount [Mediastinal #2] Output, Chest Tube Drainage 155 Amount [Mediastinal #1] Output, Chest Tube Drainage 155 Amount [Mediastinal #1] Output, Urine Amount 450 Output, Urine Amount 0 Weight 04/21/18 04/22/18 04/23/18 23:59 23:59 23:59 Weight 157.2 kg - Physical Examination General: Conversant, No Apparent Distress Neck: No JVD, Normal carotid pulses Cardiac: Normal S1 and S2, No Murmur, Other (Irregular rate and rhythm (atrial fibrillation)) Incision: No signs of infection, Dry/intact dressing Sternum: Stable Chest tubes: Minimal drainage, Other (No air leak) Lungs: Normal Breath Sounds, No Wheeze, Rales, Rhonchi Neuro: Alert and responsive, No focal deficits noted Vascular: Normal capillary refill Skin: No rashes noted on visualized skin Musculoskeletal: No Chest Wall Tenderness Extremities: No Clubbing, No Cyanosis, Other (Bilateral lower extremity 2+ edema ) - Labs 04/23/18 03:41 04/23/18 03:41 Lab Results, Last 24 hours 04/23/18 04/23/18 03:41 03:41 WBC 11.8 H Hgb 8.3 L Hct 25.1 L Plt Count 104 L Sodium 132 L Potassium 3.6 Chloride 103 Carbon Dioxide 22 L BUN 14 Creatinine 0.70 Glucose 124 H Calcium 7.4 L - VTE Reasons for not Prescribing Prophylaxis: Medical contraindication Consult Discharge Plan - Plan Referrals: Jyothi Vera [Primary Care Provider] -
[2018-04-23] MEDS: Aspirin Enteric Coated 81 MG Tablet PO SCH (08:40)
[2018-04-23] MEDS: Chlorhexidine Rinse 15 ML MOUTHWASH MM SCH ×2 (08:41→19:48)
[2018-04-23] MEDS: Nitroglycerin 25 MG/250 ML INFUS..BTL IVC SCH ×3 (08:41→23:16)
[2018-04-23] MEDS: Pantoprazole 40 MG VIAL IVP SCH (08:41)
[2018-04-23] MEDS: Furosemide 20 MG/2 ML VIAL IVP SCH ×2 (08:41→17:19)
[2018-04-23] MEDS: Insulin LISPRO 300 UNITS/3 ML VIAL SQ SCH ×4 (08:42→20:04)
[2018-04-23] MEDS: Norepinephrine 4 MG in D5% in Water 250 ML IVC SCH (11:43)
[2018-04-23] MEDS: niCARdipine 40 MG/200 ML MLS IVC SCH ×2 (11:43→19:49)
--- NOTE | 2018-04-23 13:03 | Pulmonology Consult Note ---
Date of Encounter: 04/23/18 Time of Encounter: 13:03 Assessment and Plan (1) Bacteremia Current Visit: Yes Status: Acute The causative agent appears to be stenotrophomonas which is an unusual presentation as bacteremia but does have a predilection for plastic services possibly related to chest tube placement and/or central venous catheters There is controversy regarding the optimal antimicrobial regimen for this organism this appears to be sensitive to Levaquin and so this is a reasonable choice especially given his underlying cirrhosis which appears decompensated. Duration of therapy is likely 10 days possibly as long as 2 weeks Given the unusual presentation and relative paucity of treatment outcomes in the medical literature in this cohort in the medical literature formal consultation with infectious diseases warranted (2) Decompensated hepatic cirrhosis Current Visit: Yes Status: Acute Patient clearly exhibiting signs of accumulation of ascitic fluid his LFTs were elevated for several days. I suspect that this is related to his postoperative state and infection -Repeat coags now and hepatic function panel I have ordered a ultrasound of the abdomen which was consistent with large amount of ascites I suspect that this is leading to coagulopathy complicating his postsurgical recovery as well as amount of output from the chest tubes I have arranged for large volume paracentesis to be performed by interventional radiology Commend scheduled albumin every 8 hours with albumin to be given prior to the procedure we will send the ascitic fluid off for several studies We cannot fully exclude the possibility of intra-abdominal infection/as BP but his current antimicrobial coverage is reasonable (Levaquin) I have increased his Lasix dosing to twice daily Recommend starting spironolactone when blood pressure tolerates as well as Nadolol Agree with continuation of rifaximin there is no evidence of encephalopathy I am not convinced that lactulose would be indicated at this time Recommend formal GI consultation and outpatient follow-up with his primary parking meter attendant (3) HEIDY (obstructive sleep apnea) Current Visit: Yes Status: Acute Recommended formal outpatient polysomnogram to reestablish diagnosis He will need them continuous oxygen monitoring while inpatient I gave him the option of having CPAP use at night and he declined at this time but he is willing to follow-up in the outpatient setting Cautious use of benzodiazepines or narcotics in this population (4) Coronary artery disease Current Visit: No Status: Acute He is status post CABG cardiothoracic surgery is managing this Thank you for this consultation pulmonary will continue to follow Qualifiers: Coronary Disease-Associated Artery/Lesion type: [place] artery [place] vs. transplanted heart: [place] heart Associated angina: with stable angina Qualified Code(s): I25.118 - Atherosclerotic heart disease of [place] coronary artery with other forms of angina pectoris History of Present Illness Consult date: 04/23/18 Requesting physician: Ian Llanes Reason for consult: pneumonia Chief complaint: Difficulty in Breathing History of present illness: This is a pleasant 62-year-old gentleman with history of CAD and atrial fibrillation along with cirrhosis who is postoperative from a aorto coronary bypass with Maze procedure. The procedure itself was uneventful postoperative complication including bleeding requiring revision. Patient has long-standing cirrhosis and his have high output from the chest tube which seems to be out of proportion from what would be expected postoperatively and mostly serous fluid bone was consulted for evaluation of this and concerned this may be ascitic fluid that is being evacuated by the chest tubes. In addition patient has had leukocytosis and signs of infection for which showed blood cultures have been positive for stenotrophomonas. Patient is a former smoker but quit in the distant past. He is morbidly obese and has been diagnosed with obstructive sleep apnea although he is not wearing CPAP for many years. He was diagnosed with cirrhosis last year which is secondary to nonalcoholic steatohepatitis complicated by esophageal varices status post banding the patient has not had any history of paracentesis for ascitic fluid accumulation. Today he any specific complaints except that his abdomen has been more distended and he has lower extremity swelling Past Med Surg Social Fam HX - Past Medical History Medical history: diabetes, hypertension Additional medical history: SVT s/p ablation 2006, HEIDY Psychiatric history: no psych history - Past Surgical History Surgical History: hip replacement Additional surgical history: right shoulder surgery - Social History Smoking Status: Former smoker Smokeless Tobacco Status: No Alcohol use: occasionally Drug use: none Medications and Allergies Aspirin [Lo-Dose Aspirin EC] 81 mg PO DAILY 04/03/18 [History] Furosemide [Lasix] 40 mg PO DAILY 04/03/18 [History] Isosorbide MONOnitrate (24 HR) [Imdur] 30 mg PO DAILY 04/03/18 [History] Lisinopril [Zestril] 40 mg PO DAILY 04/03/18 [History] Metformin HCl [Metformin HCl] 1,000 mg PO BID 04/03/18 [History] Omeprazole [PriLOSEC] 20 mg PO Q48H 04/03/18 [History] Rifaximin [Xifaxan] 550 mg PO BID 04/03/18 [History] Nadolol 20 mg PO HS 04/15/18 [History] 3 Allergy/AdvReac Type Severity Reaction Status Date / Time Penicillins [PCN] Allergy Rash Verified 04/15/18 07:07 All Systems: The remainder of the systems were reviewed and are negative Physical Examination Vital Signs: Vital Signs, Last 4 Hours Pulse Resp BP Pulse Ox 04/23/18 11:10 18 95 04/23/18 11:00 101 10 122/93 95 04/23/18 10:00 112 16 111/86 95 General appearance: no acute distress, other (Sitting up in a chair very comfortable) Eyes: nonicteric ENT: oropharynx moist Mallampati (class): 4 Neck: supple, JVD Effort: normal Auscultation: bilateral: rales (In lung bases), other (Chest tube noted dressing without evidence of infection) Cardiovascular: regular rate and rhythm Gastrointestinal: normoactive bowel sounds, tender, other (Abdomen is distended and dull to percussion positive fluid wave form) Integumentary: normal Extremities: no cyanosis, edema (Bilateral lower cavity pitting edema which is symmetric) Musculoskeletal: no deformities normal mental status, non-focal exam mood appropriate Results - Laboratory Findings CBC and BMP: 04/23/18 03:41 04/23/18 03:41 ABG ABG pH 7.42 pH Units (7.32-7.45) 04/18/18 17:20 ABG pCO2 38 mmHg (35-45) 04/18/18 17:20 ABG pO2 83 mmHg (85-104) L 04/18/18 17:20 ABG O2 Saturation 96 % (95-98) 04/18/18 17:20 PT/INR, D-dimer PT 20.6 Seconds (9.4-12.1) H 04/22/18 04:55 Abnormal lab findings: Abnormal lab results WBC 11.8 K/mcL (4.3-11.1) H 04/23/18 03:41 RBC 2.80 M/mcL (4.19-5.50) L 04/23/18 03:41 Hgb 8.3 g/dL (12.9-16.9) L 04/23/18 03:41 Hct 25.1 % (37.5-50.1) L 04/23/18 03:41 RDW 15.5 % (11.5-14.5) H 04/23/18 03:41 Plt Count 104 K/mcL (140-400) L 04/23/18 03:41 Nucleated RBCs/100 WBC 0.8 /100 WBC (0) H 04/23/18 03:41 Platelet Estimate Slight Decrease (Normal) L 04/23/18 03:41 Immature Plt Fraction 7.3 % (1.1-6.1) H 04/22/18 04:55 PT 20.6 Seconds (9.4-12.1) H 04/22/18 04:55 ABG pO2 83 mmHg (85-104) L 04/18/18 17:20 ABG Hematocrit 27.0 % (37.5-50.1) L 04/15/18 12:28 Glucose 157 mg/dL (60-95) H 04/15/18 12:28 Sodium 132 mEq/L (136-145) L 04/23/18 03:41 Carbon Dioxide 22 mEq/L (23-29) L 04/23/18 03:41 Glucose 124 mg/dL (70-105) H 04/23/18 03:41 POC Glucose 165 mg/dL (70-99) H 04/23/18 10:55 Calculated Osmolality 276 (280-300) L 04/23/18 03:41 Calcium 7.4 mg/dL (8.6-10.3) L 04/23/18 03:41 Total Bilirubin 2.0 mg/dL (0.3-1.0) H 04/22/18 04:55 Direct Bilirubin 0.8 mg/dL (0.0-0.2) H 04/22/18 04:55 Serum Total Protein 4.7 g/dL (6.4-8.9) L 04/22/18 04:55 Albumin 2.8 g/dL (3.5-5.7) L 04/22/18 04:55 Globulin 1.9 g/dL (2.4-3.5) L 04/22/18 04:55 Procalcitonin 7.04 ng/mL (<=0.07) H 04/20/18 12:00 Arterial Blood Ionized Calcium 0.90 mmol/L (1.15-1.35) L 04/15/18 12:28 - Microbiology Findings Microbiology Findings: Microbiology, Last 48 Hours 04/20/18 10:23 Blood Culture - Final Peripheral Venipuncture Stenotrophomonas maltophilia 04/20/18 10:23 Blood Culture - Final Peripheral Venipuncture Stenotrophomonas maltophilia 04/20/18 10:05 Blood Culture - Final Central Venous Catheter Stenotrophomonas maltophilia 04/21/18 21:30 Catheter Tip Culture - Preliminary Intravenous or Arterial Cath No growth. 04/21/18 15:35 Blood Culture - Preliminary Peripheral Venipuncture Gram Negative Guy 04/21/18 16:10 Blood Culture - Preliminary Central Venous Catheter Gram Negative Guy 04/20/18 10:00 Urine Culture - Final Urine,Catheterized No growth. - Diagnostic Findings Chest x-ray: report reviewed, image reviewed - Clinical Findings Intake & Output: Intake & Output 04/22/18 04/23/18 04/23/18 23:59 07:59 15:59 Intake Total 1320 / 1320 1129 / 1129 Output Total 585 / 585 835 / 835 100 / 100 Balance 735 / 735 294 / 294 -100 / -100 Weight 157.2 kg Consult Discharge Plan - Plan Referrals: Jyothi Vera [Primary Care Provider] -
[2018-04-23] MEDS: Levofloxacin 750 MG/150 ML 750 MG/150 ML BAG IVPB SCH (13:32)
[2018-04-23] MEDS: *HR* FentaNYL (PF) 100 MCG/2 ML VIAL IVP PRN (13:37)
[2018-04-23] MEDS: Furosemide 40 MG/4 ML VIAL IVP SCH (17:23)
[2018-04-23] MEDS: Ondansetron 4 MG/2 ML VIAL IVP PRN (19:49)
[2018-04-23] MEDS: Albumin 25% 25gram/100mL 25 GM/100 ML IV.SOLN IVPB SCH (23:55)
[2018-04-24] MEDS: Amiodarone Premix 360 MG/200 ML BAG IVC SCH ×3 (01:22→13:42)
[2018-04-24 04:02] LABS: Basophils % 0.2 %; Eosinophils # 0.3 K/mcL (0.0-0.6); Eosinophils % 2.7 %; Hemoglobin 8.1 g/dL (12.9-16.9); Immature Granulocytes % 0.9 % (0-4); Lymphocytes # 2.4 K/mcL (0.6-4.6); Lymphocytes % 18.6 %; Mean Corpuscular HGB Conc 33.8 g/dL (31.6-35.5); Mean Corpuscular Hemoglobin 29.9 pg (28.0-33.3); Mean Corpuscular Volume 88.6 fL (83.0-100.0); Monocytes # 1.5 K/mcL (0.0-1.3); Monocytes % 11.6 %; Neutrophils # 8.4 K/mcL (1.6-8.9); Nucleated Red Blood Cells 0.6 /100 WBC (0); Platelet Count 119 K/mcL (140-400); Red Blood Count 2.71 M/mcL (4.19-5.50); Red Cell Distribution Width 15.9 % (11.5-14.5)
[2018-04-24 04:07] LABS: INR 1.8; Prothrombin Time 20.8 Seconds (9.4-12.1)
[2018-04-24] MEDS: niCARdipine 40 MG/200 ML MLS IVC SCH ×3 (04:09→20:03)
[2018-04-24] MEDS: Nitroglycerin 25 MG/250 ML INFUS..BTL IVC SCH ×4 (04:09→20:03)
[2018-04-24 04:10] LABS: Activated Partial Thrombo Time 34.8 Seconds (26.0-36.0)
[2018-04-24 04:18] LABS: BUN/Creatinine Ratio 14 (6-26); Blood Urea Nitrogen 12 mg/dL (8-23); Calcium 7.5 mg/dL (8.6-10.3); Carbon Dioxide 21 mEq/L (23-29); Chloride 102 mEq/L (98-107); Glucose 138 mg/dL (70-105); Osmolality,Calculated 274 (280-300); Potassium 3.8 mEq/L (3.5-5.1); Sodium 131 mEq/L (136-145); eGFR For Non-African Americans > 60 (> 60)
[2018-04-24 04:31] LABS: Platelet Estimate Slight Decrease (Normal)
--- NOTE | 2018-04-24 07:22 | Pulmonology Progress Note ---
<Antonio Hawley W - Last Filed: 04/24/18 08:11> Date of Encounter: 04/24/18 Assessment and Plan (1) Bacteremia Current Visit: Yes Status: Acute (2) Decompensated hepatic cirrhosis Current Visit: Yes Status: Acute (3) HEIDY (obstructive sleep apnea) Current Visit: Yes Status: Acute (4) Coronary artery disease Current Visit: No Status: Acute Qualifiers: Coronary Disease-Associated Artery/Lesion type: [place] artery [place] vs. transplanted heart: [place] heart Associated angina: with stable angina Qualified Code(s): I25.118 - Atherosclerotic heart disease of [place] coronary artery with other forms of angina pectoris Objective PUL Vital signs: Last Vital Signs Temp 99.5 F 04/24/18 07:39 Pulse 96 04/24/18 06:00 Resp 16 04/24/18 07:43 BP 102/69 04/24/18 06:00 Pulse Ox 94 04/24/18 07:43 Results - Laboratory Findings CBC and BMP: 04/24/18 03:43 04/24/18 03:43 ABG ABG pH 7.42 pH Units (7.32-7.45) 04/18/18 17:20 ABG pCO2 38 mmHg (35-45) 04/18/18 17:20 ABG pO2 83 mmHg (85-104) L 04/18/18 17:20 ABG O2 Saturation 96 % (95-98) 04/18/18 17:20 PT/INR, D-dimer PT 20.8 Seconds (9.4-12.1) H 04/24/18 03:43 Abnormal lab findings: Abnormal lab results WBC 12.7 K/mcL (4.3-11.1) H 04/24/18 03:43 RBC 2.71 M/mcL (4.19-5.50) L 04/24/18 03:43 Hgb 8.1 g/dL (12.9-16.9) L 04/24/18 03:43 Hct 24.0 % (37.5-50.1) L 04/24/18 03:43 RDW 15.9 % (11.5-14.5) H 04/24/18 03:43 Plt Count 119 K/mcL (140-400) L 04/24/18 03:43 Monocytes # 1.5 K/mcL (0.0-1.3) H 04/24/18 03:43 Nucleated RBCs/100 WBC 0.6 /100 WBC (0) H 04/24/18 03:43 Platelet Estimate Slight Decrease (Normal) L 04/24/18 03:43 Immature Plt Fraction 7.3 % (1.1-6.1) H 04/22/18 04:55 PT 20.8 Seconds (9.4-12.1) H 04/24/18 03:43 ABG pO2 83 mmHg (85-104) L 04/18/18 17:20 ABG Hematocrit 27.0 % (37.5-50.1) L 04/15/18 12:28 Glucose 157 mg/dL (60-95) H 04/15/18 12:28 Sodium 131 mEq/L (136-145) L 04/24/18 03:43 Carbon Dioxide 21 mEq/L (23-29) L 04/24/18 03:43 Glucose 138 mg/dL (70-105) H 04/24/18 03:43 POC Glucose 136 mg/dL (70-99) H 04/24/18 06:56 Calculated Osmolality 274 (280-300) L 04/24/18 03:43 Calcium 7.5 mg/dL (8.6-10.3) L 04/24/18 03:43 Total Bilirubin 2.0 mg/dL (0.3-1.0) H 04/22/18 04:55 Direct Bilirubin 0.8 mg/dL (0.0-0.2) H 04/22/18 04:55 Serum Total Protein 4.7 g/dL (6.4-8.9) L 04/22/18 04:55 Albumin 2.8 g/dL (3.5-5.7) L 04/22/18 04:55 Globulin 1.9 g/dL (2.4-3.5) L 04/22/18 04:55 Procalcitonin 7.04 ng/mL (<=0.07) H 04/20/18 12:00 Arterial Blood Ionized Calcium 0.90 mmol/L (1.15-1.35) L 04/15/18 12:28 - Microbiology Findings Microbiology Findings: Microbiology, Last 48 Hours 04/21/18 21:30 Catheter Tip Culture - Preliminary Intravenous or Arterial Cath Gram Negative Guy 04/20/18 10:23 Blood Culture - Final Peripheral Venipuncture Stenotrophomonas maltophilia 04/20/18 10:23 Blood Culture - Final Peripheral Venipuncture Stenotrophomonas maltophilia 04/20/18 10:05 Blood Culture - Final Central Venous Catheter Stenotrophomonas maltophilia 04/21/18 15:35 Blood Culture - Preliminary Peripheral Venipuncture Gram Negative Guy 04/21/18 16:10 Blood Culture - Preliminary Central Venous Catheter Gram Negative Guy - Clinical Findings Intake & Output: Intake & Output 04/23/18 04/24/18 04/24/18 23:59 07:59 15:59 Intake Total 230 / 230 500 / 500 Output Total 1745 / 1745 770 / 770 Balance -1515 / -1515 -270 / -270 Weight 142.4 kg Consult Discharge Plan - Plan Referrals: Jyothi Vera [Primary Care Provider] - - Attending Attestation I examined this patient and my medical decision-making was reviewed with the Resident Physician. I agree with the documented findings, disposition and treatment plan as described except to the extent set forth below. We independently had [id number] contact with the patient Patient seen and examined at bedside Labs, radiology, chart personally reviewed. Impression: Stenotrophomonas bacteremia Cirrhosis CAD post CABG HEIDY Recs: Reculture blood Continue Levaquin ID consultation requested Continue Lasix and albumin continue rifaximin GI consult large volume paracentesis plan today Management per cardiothoracic surgery recommend early removal of chest tube as possible Outpatient polysomnogram <Jacinto Adames - Last Filed: 04/24/18 11:23> Date of Encounter: 04/24/18 Time of Encounter: 10:54 Assessment and Plan (1) Bacteremia Current Visit: Yes Status: Acute 2nd to stenotrophomonas. 04/20 peripheral venipunture x2 and CVC x1 + stenotrophomonas 04/21 peripheral cultures and catheter tip culture+ (introducer) for gram negative guy 04/21 CVC cultures + stenotrophomonas Patient is on Levaquin day 2 ID consulted for recommendations repeat blood cultures tomorrow (2) Coronary artery disease Current Visit: Yes Status: Acute patient hx of CAD now s/p CABG with maze procedure on 04/15/18 with reexploration on 04/18 chest tubes draining 1240 yesterday and 650 thus far changing metoprolol to nadolol for treatment of decompensated hepatic cirrhosis will follow CT surgery recommendations Qualifiers: Coronary Disease-Associated Artery/Lesion type: [place] artery [place] vs. 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 IR evaluated patient and reported not enough fluid to tap. will continue lasix IV BID if patients urine output does not improve will start lasix drip start nadalol continue protonix, rifaximin consult GI. (4) HEIDY (obstructive sleep apnea) Current Visit: Yes Status: Acute patient will follow up for outpatient sleep study Subjective Principal diagnosis: sepsis Interval history: No acute events overnight. Patient reports pain is controlled. He denies sob. He is able to transfer himself to the beside chair without assistance. He denies abdominal pain. Continues to have significant body wall edema. Objective PUL Vital signs: Last Vital Signs Temp 98.2 F 04/24/18 04:48 Pulse 96 04/24/18 06:00 Resp 17 04/24/18 06:00 BP 102/69 04/24/18 06:00 Pulse Ox 92 04/24/18 06:00 General appearance: no acute distress, alert Eyes: nonicteric ENT: oropharynx moist Mallampati (class): 4 Neck: no lymphadenopathy Effort: normal Auscultation: bilateral: rales Cardiovascular: regular rate and rhythm, other (chest tubes without erythema, midline inscision intact w/o purulent drainage) Gastrointestinal: normoactive bowel sounds, soft, non-tender Integumentary: normal Extremities: pink and warm, edema (b/l LE 2+), anasarca normal mental status mood appropriate, affect normal Results - Laboratory Findings CBC and BMP: 04/24/18 03:43 04/24/18 03:43 ABG ABG pH 7.42 pH Units (7.32-7.45) 04/18/18 17:20 ABG pCO2 38 mmHg (35-45) 04/18/18 17:20 ABG pO2 83 mmHg (85-104) L 04/18/18 17:20 ABG O2 Saturation 96 % (95-98) 04/18/18 17:20 PT/INR, D-dimer PT 20.8 Seconds (9.4-12.1) H 04/24/18 03:43 Abnormal lab findings: Abnormal lab results WBC 12.7 K/mcL (4.3-11.1) H 04/24/18 03:43 RBC 2.71 M/mcL (4.19-5.50) L 04/24/18 03:43 Hgb 8.1 g/dL (12.9-16.9) L 04/24/18 03:43 Hct 24.0 % (37.5-50.1) L 04/24/18 03:43 RDW 15.9 % (11.5-14.5) H 04/24/18 03:43 Plt Count 119 K/mcL (140-400) L 04/24/18 03:43 Monocytes # 1.5 K/mcL (0.0-1.3) H 04/24/18 03:43 Nucleated RBCs/100 WBC 0.6 /100 WBC (0) H 04/24/18 03:43 Platelet Estimate Slight Decrease (Normal) L 04/24/18 03:43 Immature Plt Fraction 7.3 % (1.1-6.1) H 04/22/18 04:55 PT 20.8 Seconds (9.4-12.1) H 04/24/18 03:43 ABG pO2 83 mmHg (85-104) L 04/18/18 17:20 ABG Hematocrit 27.0 % (37.5-50.1) L 04/15/18 12:28 Glucose 157 mg/dL (60-95) H 04/15/18 12:28 Sodium 131 mEq/L (136-145) L 04/24/18 03:43 Carbon Dioxide 21 mEq/L (23-29) L 04/24/18 03:43 Glucose 138 mg/dL (70-105) H 04/24/18 03:43 POC Glucose 136 mg/dL (70-99) H 04/24/18 06:56 Calculated Osmolality 274 (280-300) L 04/24/18 03:43 Calcium 7.5 mg/dL (8.6-10.3) L 04/24/18 03:43 Total Bilirubin 2.0 mg/dL (0.3-1.0) H 04/22/18 04:55 Direct Bilirubin 0.8 mg/dL (0.0-0.2) H 04/22/18 04:55 Serum Total Protein 4.7 g/dL (6.4-8.9) L 04/22/18 04:55 Albumin 2.8 g/dL (3.5-5.7) L 04/22/18 04:55 Globulin 1.9 g/dL (2.4-3.5) L 04/22/18 04:55 Procalcitonin 7.04 ng/mL (<=0.07) H 04/20/18 12:00 Arterial Blood Ionized Calcium 0.90 mmol/L (1.15-1.35) L 04/15/18 12:28 - Microbiology Findings Microbiology Findings: Microbiology, Last 48 Hours 04/20/18 10:23 Blood Culture - Final Peripheral Venipuncture Stenotrophomonas maltophilia 04/20/18 10:23 Blood Culture - Final Peripheral Venipuncture Stenotrophomonas maltophilia 04/20/18 10:05 Blood Culture - Final Central Venous Catheter Stenotrophomonas maltophilia 04/21/18 21:30 Catheter Tip Culture - Preliminary Intravenous or Arterial Cath No growth. 04/21/18 15:35 Blood Culture - Preliminary Peripheral Venipuncture Gram Negative Guy 04/21/18 16:10 Blood Culture - Preliminary Central Venous Catheter Gram Negative Guy - Clinical Findings Intake & Output: Intake & Output 04/23/18 04/23/18 04/24/18 15:59 23:59 07:59 Intake Total 470 / 470 230 / 230 300 / 300 Output Total 460 / 460 1745 / 1745 320 / 320 Balance -1515 / -1515 -20 / 20 Weight 142.4 kg - VTE Reasons for not Prescribing Prophylaxis: Medical contraindication
--- NOTE | 2018-04-24 07:33 | Cardiothoracic Progress Note ---
Date of Encounter: 04/24/18 Time of Encounter: 07:31 - Assessment and plan (1) Coronary artery disease Current Visit: No Status: Acute The assessment and plan as outlined above was discussed with the patient and/or family members who expressed understanding and agreement. All questions were answered. I agree with paracentesis today. We will get the chest tubes out as soon as they stop draining. The patient has ascites and has a history of varices seen on endoscopy one year ago. Qualifiers: Coronary Disease-Associated Artery/Lesion type: [place] artery [place] vs. transplanted heart: [place] heart Associated angina: with stable angina Qualified Code(s): I25.118 - Atherosclerotic heart disease of [place] coronary artery with other forms of angina pectoris - Subjective Interval history: The patient complains of total body anasarca with swelling of his abdomen and extremities. Vital Signs, Last 4 Hours Temp Pulse Resp BP Pulse Ox 04/24/18 06:00 96 17 102/69 92 04/24/18 05:00 96 17 101/73 93 04/24/18 04:48 98.2 F 04/24/18 04:19 18 94 04/24/18 04:00 96 17 110/59 93 04/24/18 03:45 86 Oxgyen Flow Rate Oxygen Flow Rate (LPM) 0 Clinical Data, last 8 Hours Output, Chest Tube Drainage 120 Amount [Mediastinal #2] Output, Chest Tube Drainage 15 Amount [Mediastinal #2] Output, Chest Tube Drainage 200 Amount [Mediastinal #1] Output, Chest Tube Drainage 110 Amount [Mediastinal #1] Weight 04/22/18 04/23/18 04/24/18 23:59 23:59 23:59 Weight 157.2 kg 142.4 kg Lungs are clear to percussion and auscultation. Heart has no murmurs, gallops or rubs. All incisions are healing well without signs of infection and the sternum is stable. The chest tubes continued to drain, but there is no air leak. The patient has ascites and peripheral edema. - Labs 04/24/18 03:43 04/24/18 03:43 Lab Results, Last 24 hours 04/24/18 04/24/18 04/24/18 03:43 03:43 03:43 WBC 12.7 H Hgb 8.1 L Hct 24.0 L Plt Count 119 L INR 1.8 APTT 34.8 Sodium 131 L Potassium 3.8 Chloride 102 Carbon Dioxide 21 L BUN 12 Creatinine 0.88 Glucose 138 H Calcium 7.5 L - VTE Reasons for not Prescribing Prophylaxis: Medical contraindication Consult Discharge Plan - Plan Referrals: Jyothi Vera [Primary Care Provider] -
[2018-04-24] MEDS: Norepinephrine 4 MG in D5% in Water 250 ML IVC SCH (07:49)
[2018-04-24] MEDS: 0.9 % Sodium Chloride 1,000 ML IVC SCH (07:49)
[2018-04-24] MEDS: Chlorhexidine Rinse 15 ML MOUTHWASH MM SCH ×2 (09:27→20:02)
[2018-04-24] MEDS: Albumin 25% 25gram/100mL 25 GM/100 ML IV.SOLN IVPB SCH ×3 (09:27→23:50)
[2018-04-24] MEDS: Furosemide 40 MG/4 ML VIAL IVP SCH ×2 (09:28→17:41)
[2018-04-24] MEDS: Aspirin Enteric Coated 81 MG Tablet PO SCH (09:28)
[2018-04-24] MEDS: Pantoprazole 40 MG VIAL IVP SCH (09:28)
[2018-04-24] MEDS: Insulin LISPRO 300 UNITS/3 ML VIAL SQ SCH ×4 (09:29→20:02)
--- NOTE | 2018-04-24 12:57 | Infectious Disease Consult ---
Date of Encounter: 04/24/18 Time of Encounter: 12:39 Assessment and Plan (1) Sepsis Status: Acute Assessment and plan: Patient had 4 SIRS criteria Secondary to CLABSI causative organism Stenotrophomonas maltophilia S:levofloxacin/bactrim Qualifiers: Sepsis type: sepsis due to unspecified organism Qualified Code(s): A41.9 - Sepsis, unspecified organism (2) CLABSI (central line-associated bloodstream infection) Status: Acute Assessment and plan: Blood cultures 2 out of 2 peripheral and one central on 04/20/2018 positive for Stenotrophomonas maltophilia S: Levofloxacin/Bactrim Central venous catheter time to positivity 17 hours Peripheral draw time to positivity 23 hours Central line was removed on 04/21/2018 Levofloxacin started on 04/23/2018 Repeat blood cultures 2 Agree with levofloxacin for now. Duration of treatment probably 14 days Monitor labs and for drug toxicity Qualifiers: Encounter type: initial encounter Qualified Code(s): T80.211A - Bloodstream infection due to central venous catheter, initial encounter (3) S/P CABG x 5 Status: Acute (4) Ascites Status: Acute Assessment and plan: Etiology not clear. We will discuss with the ICU team No signs of SBP Qualifiers: Ascites type: other type Qualified Code(s): R18.8 - Other ascites (5) Hyperbilirubinemia Status: Acute (6) Atelectasis of right lung Status: Acute (7) Coronary artery disease Status: Acute Qualifiers: Coronary Disease-Associated Artery/Lesion type: [place] artery [place] vs. transplanted heart: [place] heart Associated angina: with stable angina Qualified Code(s): I25.118 - Atherosclerotic heart disease of [place] coronary artery with other forms of angina pectoris (8) Drug allergy, antibiotic Status: Acute Assessment and plan: Allergic to penicillin tolerated cefepime okay (9) End stage liver disease Status: Acute Assessment and plan: MELD SCORE 21 secondary to RAZA (10) RAZA (nonalcoholic steatohepatitis) Status: Acute Assessment and plan: per patient and family denies history of hepatitis (11) Esophageal varices Status: Acute Assessment and plan: secondary to RAZA and portal HTN Qualifiers: Esophageal varices type: secondary Esophageal varices bleeding: without bleeding Qualified Code(s): I85.10 - Secondary esophageal varices without bleeding Infectious Disease HPI - Data of Consult Patient: new to practice Consult date: 04/24/18 Requesting Physician: Ev Flores MD Primary Care Provider: Jyothi Vera - Consult Narrative Reason for consult: Bacteremia History of present illness: Mr. Lima is a 62 year old male Patient is a 62-year-old gentleman who presented to [facility] on 04/15/2018 for CABG. We are consulted on 04/24/2018 for bacteremia. Patient is a 62-year-old gentleman On admission, patient was afebrile, no tachycardia and hemodynamically stable. His presenting labs revealed a WBC of 718.2 with 86% neutrophils no bands. Chemistry revealed normal kidney function with a BUN 15 creatinine 0.87 and a total bilirubin of 1.9 direct 0.5 and direct 1.4 with normal LFTs. A chest x- ray was obtained post op and it revealed endotracheal tube distal tip 4 cm above the jabier. No pneumothorax. Mild pulmonary vascular congestion. 04/15/2018: Patient underwent a CABG 4 (AYERS to LAD, SVG to D1, SVG to OM1, SVG to PDA), modified Maze procedure using radiofrequency ablation, left atrial appendage stapling, endoscopic vein harvesting greater saphenous vein from the right lower extremity and greater saphenous veins from the left lower extremity. 04/16/2018: Patient was extubated chest x-ray with no pneumonia 04/17/2018 patient had a fever of 100.8 Fahrenheit, tachycardia and a slight increase in WBC to 15.7 with normal differential no bands. Patient continued to have bilirubin of 2 and normal kidney function. A chest x-ray reveals increasing left basilar atelectasis or pneumonia 04/20/2018: Patient spiked a fever of 102.7 Fahrenheit area WBC 1 up to 11.7 with normal differential no bands. Creatinine continued to stay normal and bilirubin was 1.7. AST and ALT were mildly elevated at 49 and 94 respectively alkaline phosphatase was normal. Procalcitonin was checked and it came back 7. Blood cultures were obtained 3 sets on 04/20/2018 and 3 out of 2 sets were positive for Stenotrophomonas maltophilia S:levofloxacin/bactrim. Patient was started on vancomycin and cefepime and Flagyl. repeat cultures on 04/21/18: positive 2/2 sets for Stenotrophomonas maltophilia; cultures finalized on 04/23 and levofloxacin was added. Central line was removed and tip was sent for culture. Patient has been afebrile since April 22. Today, patient is afebrile. MAXIMUM TEMPERATURE is 99.5. Patient continues to have tachycardia. He is also tachypneic. Labs today revealed WBC of 12.7 with normal differential. No bands. Kidney function within normal limits. Chest x- ray from 04/23/2018 reveals left chest tube remains in place. No visible pneumothorax. Minimal subcutaneous air in the left chest wall unchanged. Bandlike opacity left mid lung is improving likely reflecting improved atelectasis. Abdominal ultrasound reveals diffuse ascites in all 4 quadrants of the abdomen. We are asked to evaluate the patient's make further recommendations. CC: Ev Flores MD Past Med Surg Social Fam HX - Past Medical History Medical history: diabetes, hypertension Additional medical history: SVT s/p ablation 2006, HEIDY Psychiatric history: no psych history - Past Surgical History Surgical History: hip replacement Additional surgical history: right shoulder surgery - Social History Smoking Status: Former smoker Smokeless Tobacco Status: No Alcohol use: occasionally Drug use: none Infectious Disease-CN:Meds Aspirin [Lo-Dose Aspirin EC] 81 mg PO DAILY 04/03/18 [History] Furosemide [Lasix] 40 mg PO DAILY 04/03/18 [History] Isosorbide MONOnitrate (24 HR) [Imdur] 30 mg PO DAILY 04/03/18 [History] Lisinopril [Zestril] 40 mg PO DAILY 04/03/18 [History] Metformin HCl [Metformin HCl] 1,000 mg PO BID 04/03/18 [History] Omeprazole [PriLOSEC] 20 mg PO Q48H 04/03/18 [History] Rifaximin [Xifaxan] 550 mg PO BID 04/03/18 [History] Nadolol 20 mg PO HS 04/15/18 [History] 3 Allergy/AdvReac Type Severity Reaction Status Date / Time Penicillins [PCN] Allergy Rash Verified 04/15/18 07:07 Exam - Constitutional Vitals: Temp Pulse Resp BP Pulse Ox 99.2 F 84 21 103/69 95 04/24/18 12:11 04/24/18 12:00 04/24/18 12:00 04/24/18 12:00 04/24/18 12:00 Infectious Disease CN: Results - Labs CBC & Chem 7: 04/24/18 03:43 04/24/18 03:43 Cultures: Cultures 04/21/18 16:10 Blood Culture - Final Central Venous Catheter Stenotrophomonas maltophilia 04/21/18 21:30 Catheter Tip Culture - Preliminary Intravenous or Arterial Cath Gram Negative Guy 04/20/18 10:23 Blood Culture - Final Peripheral Venipuncture Stenotrophomonas maltophilia 04/20/18 10:23 Blood Culture - Final Peripheral Venipuncture Stenotrophomonas maltophilia 04/20/18 10:05 Blood Culture - Final Central Venous Catheter Stenotrophomonas maltophilia 04/21/18 15:35 Blood Culture - Preliminary Peripheral Venipuncture Gram Negative Guy 04/20/18 10:00 Urine Culture - Final Urine,Catheterized No growth. Serology: Serology 04/21/18 04/20/18 Range/Units 16:10 10:05 A. baumannii (PCR) Not Detected Not Detected (Not Detect) Lilo albicans (PCR) Not Detected Not Detected (Not Detect) C. glabrata (PCR) Not Detected Not Detected (Not Detect) C. krusei (PCR) Not Detected Not Detected (Not Detect) C. parapsilosis (PCR) Not Detected Not Detected (Not Detect) C. tropicalis (PCR) Not Detected Not Detected (Not Detect) Enterobacteriac sp PCR Not Detected Not Detected (Not Detect) E. cloacae complex PCR Not Detected Not Detected (Not Detect) Enterococcus sp PCR Not Detected Not Detected (Not Detect) E. coli (PCR) Not Detected Not Detected (Not Detect) H. influenzae (PCR) Not Detected Not Detected (Not Detect) Klebsiella oxytoca PCR Not Detected Not Detected (Not Detect) Klebsiella pneumoniae Not Detected Not Detected (Not Detect) List. monocytogenes PCR Not Detected Not Detected (Not Detect) N. meningitidis (PCR) Not Detected Not Detected (Not Detect) Proteus species (PCR) Not Detected Not Detected (Not Detect) Serratia marcescens PCR Not Detected Not Detected (Not Detect) Staphylococcus sp PCR Not Detected Not Detected (Not Detect) Staph aureus (PCR) Not Detected Not Detected (Not Detect) mecA-Methicil Res Gene Not Detected N/A (Not Detect) Streptococcus sp PCR Not Detected Not Detected (Not Detect) Group A Strep DNA Not Detected Not Detected (Not Detect) Group B Strep (PCR) Not Detected Not Detected (Not Detect) Strep pneumoniae (PCR) Not Detected Not Detected (Not Detect) P. aeruginosa (PCR) Not Detected Not Detected (Not Detect) Alyx/B-Vanco Res Genes Not Detected N/A (Not Detect) KPC (blaKPC) Detect PCR Not Detected N/A (Not Detect) - VTE Reasons for not Prescribing Prophylaxis: Medical contraindication Consult Discharge Plan - Plan Referrals: Jyothi Vera [Primary Care Provider] -
--- NOTE | 2018-04-24 12:59 | Gastroenterology Consult Note ---
<Stephenie Jimenez - Last Filed: 04/24/18 15:29> Date of Encounter: 04/24/18 Time of Encounter: 11:50 - Assessment and plan (1) Decompensated hepatic cirrhosis Current Visit: Yes Status: Acute Assessment and plan: Patient has history of cirrhosis with esophageal varices that have been banded a few weeks ago. PT 20.8, INR 1.8 LFTs, alkaline phosphatase WNL MELD score 21 Abdominal ultrasound yesterday demonstrated diffuse ascites IR-paracentesis today however there is not enough fluid to perform the tap plan: -recommend continue IV Protonix, rifamixin, albumin, nadolol, lasix -will request records from the patient's audit clerk in [place] (2) Coronary artery disease Current Visit: Yes Status: Acute Assessment and plan: status post CABG4 and modified Maze procedure -management per cardiology and primary team Qualifiers: Coronary Disease-Associated Artery/Lesion type: [place] artery [place] vs. transplanted heart: [place] heart Associated angina: with stable angina Qualified Code(s): I25.118 - Atherosclerotic heart disease of [place] coronary artery with other forms of angina pectoris - Time Spent With Patient Total time spent is greater than 50% in coordination of care (as documented) at patient's floor/unit and/or counseling patient: GI History of Present Illness - Data of Consult Patient: new to practice Consult date: 04/24/18 Requesting Physician: Ev Flores MD - Consult Narrative Reason for consult: Ascites, cirrhosis History of present illness: Mr. Lima is a 62 year old male with past medical history of NAFLD, CAD, diabetes, atrial fibrillation who is status post CABG4 and modified Maze procedure. Gastroenterology was consulted due to ascites and cirrhosis. He has had high output from his chest tubes which is more than what would have been expected postprocedure. This is concerning for ascitic fluid. He reported that his audit clerk is in [place]. He had an EGD last month in which he had 4 esophageal varices banded. His last colonoscopy was 2 years ago and was normal. He is a former smoker. He drinks alcohol occasionally which was one gl ass of wine or beer a week. He denies any heavy alcohol drinking in the past. Denied drug abuse. Past Med Surg Social Fam HX - Past Medical History Attestation: Yes The following information was validated with the patient. Source: patient Medical history: diabetes, hypertension Additional medical history: SVT s/p ablation 2007, HEIDY Psychiatric history: no psych history - Past Surgical History Surgical History: hip replacement Additional surgical history: right shoulder surgery - Social History Smoking Status: Former smoker Smokeless Tobacco Status: No Alcohol use: occasionally Drug use: none - Gastrointestinal Gastrointestinal: Absent: abdominal pain, diarrhea, hematochezia, melena, nausea, vomiting - Constitutional Constitutional: no fatigue, no fever(s) - EENT Nose, mouth and throat: Absent: dysphagia, hoarseness - Cardiovascular Cardiovascular ROS: Absent: chest pain, palpitations - Respiratory Respiratory IM: Absent: cough, dyspnea - Genitourinary Genitourinary: Absent: change in color, Urinary frequency - Neurological ROS Neurological GI: Absent: confusion, dizziness - Musculoskeletal Musculoskeletal ROS GI: Absent: back pain - Integumentary Integumentary GI: Absent: jaundice, pruritis, rash - Psychiatric ROS Psychiatric GI: Absent: depression - Endocrine Endocrine IM: Absent: fatigue - Constitutional Vitals: Temp Pulse Resp BP Pulse Ox 99.2 F 84 21 103/69 95 04/24/18 12:11 04/24/18 12:00 04/24/18 12:00 04/24/18 12:00 04/24/18 12:00 Exam: Gen.: Vitals noted. No acute distress. AAOx3 HEENT: oropharynx clear, Normocephalic, atraumatic Neck: Supple. No adenopathy. Cardiac: RRR, no murmur, +S1/S2 Pulmonary: CTA bilaterally, no wheezes, rales or rhonchi, equal chest expansion Abdomen: soft, nontender, Bowel sounds noted, no guarding, distended MSK: ROM intact, no joint swelling noted Extremities: +BLE edema, nontender calf, no cyanosis or clubbing Neuro: A&Ox3, moves all extremities, no focal deficits Psych: Appropriate mood and behavior Results - Labs CBC & Chem 7: 04/24/18 03:43 04/24/18 03:43 Labs: Last Result Calcium 7.5 mg/dL (8.6-10.3) L 04/24/18 03:43 Entire Visit Hgb 8.1 g/dL (12.9-16.9) L 04/24/18 03:43 Hct 24.0 % (37.5-50.1) L 04/24/18 03:43 PT 20.8 Seconds (9.4-12.1) H 04/24/18 03:43 Total Bilirubin 2.0 mg/dL (0.3-1.0) H 04/22/18 04:55 AST 29 Units/L (13-39) 04/22/18 04:55 ALT 49 Units/L (7-52) 04/22/18 04:55 E. coli (PCR) Not Detected (Not Detect) 04/21/18 16:10 - ABG ABG results: ABG ABG pH 7.42 pH Units (7.32-7.45) 04/18/18 17:20 ABG pCO2 38 mmHg (35-45) 04/18/18 17:20 ABG pO2 83 mmHg (85-104) L 04/18/18 17:20 ABG O2 Saturation 96 % (95-98) 04/18/18 17:20 PT/INR, D-dimer PT 20.8 Seconds (9.4-12.1) H 04/24/18 03:43 - Impressions Impressions Abdomen Ultrasound 04/23/18 13:36 IMPRESSION: Diffuse ascites seen in all 4 quadrants of the abdomen. D/ / Damir Leggett MD / Damir Leggett MD Interpreting Provider: Damir Leggett MD Abdomen/Pelvis/Transvag US 04/24/18 07:02 IMPRESSION: Small amount of ascites, not enough to perform a therapeutic paracentesis. D/ / 04/24/2018 10:45:43 Patricia Colon MD / Amanda Luna Interpreting Provider: Patricia Colon MD Consult Discharge Plan - Plan Referrals: Ev Flores MD [Partnered Physician] - 05/29/18 2:50 pm Forrest Foster DO [Partnered Physician] - 05/12/18 9:30 am Jyothi Vera [Primary Care Provider] - 05/09/18 9:00 am <Brandyn Daly - Last Filed: 05/02/18 07:47> - Time Spent With Patient Total time spent is greater than 50% in coordination of care (as documented) at patient's floor/unit and/or counseling patient: GI History of Present Illness - Data of Consult Requesting Physician: Ev Flores MD - Consult Narrative History of present illness: Mr. Lima is a 62 year old male - Constitutional Vitals: Temp Pulse Resp BP Pulse Ox 97.9 F 91 20 107/67 90 05/02/18 07:42 05/02/18 07:42 05/02/18 07:42 05/02/18 07:42 05/02/18 07:42 Results - Labs CBC & Chem 7: 05/02/18 03:10 05/02/18 03:10 Labs: Last Result Calcium 8.9 mg/dL (8.6-10.3) 05/02/18 03:10 Entire Visit Hgb 9.4 g/dL (12.9-16.9) L 05/02/18 03:10 Hct 29.0 % (37.5-50.1) L 05/02/18 03:10 PT 18.7 Seconds (9.4-12.1) H 04/30/18 05:55 Total Bilirubin 4.2 mg/dL (0.3-1.0) H 04/29/18 10:00 AST 20 Units/L (13-39) 04/29/18 10:00 ALT 11 Units/L (7-52) 04/29/18 10:00 E. coli (PCR) Not Detected (Not Detect) 04/21/18 16:10 - ABG ABG results: ABG ABG pH 7.42 pH Units (7.32-7.45) 04/18/18 17:20 ABG pCO2 38 mmHg (35-45) 04/18/18 17:20 ABG pO2 83 mmHg (85-104) L 04/18/18 17:20 ABG O2 Saturation 96 % (95-98) 04/18/18 17:20 PT/INR, D-dimer PT 18.7 Seconds (9.4-12.1) H 04/30/18 05:55 - Impressions Impressions Chest X-Ray 05/01/18 12:10 IMPRESSION: Stable trace left apical pneumothorax. Cardiomegaly, with worsening left basilar airspace disease and pleural effusion which may be related to pneumonia and parapneumonic effusion. D/ / Tyrell Leone MD / Tyrell Leone MD Interpreting Provider: Tyrell Leone MD Chest X-Ray 05/02/18 06:00 IMPRESSION: 1. Right PICC line appears unchanged in position. 2. Unchanged moderate to large left pleural effusion with likely left basilar atelectasis. 3. Mild persistent enlargement of the cardiac silhouette. 4. No convincing pneumothorax. D/ / Dale Gudino MD / Dlae Gudino MD Interpreting Provider: Dale Gudino MD - Attending Attestation Patient is still caused a status post coronary artery bypass grafting he has known cirrhosis and has been treated as a different hospital for this. At the present and the patient looks good given the circumstances will continue present course of therapy and follow the patient closely with you would avoid ovoid potentially hepatotoxic drugs much as possible. Thank you I examined this patient and my medical decision-making was reviewed with the Resident Physician. I agree with the documented findings, disposition and treatment plan as described except to the extent set forth below. very much this consultation
[2018-04-24] MEDS: Levofloxacin 750 MG/150 ML 750 MG/150 ML BAG IVPB SCH (13:42)
[2018-04-24] MEDS: Ondansetron 4 MG/2 ML VIAL IVP PRN (22:41)
[2018-04-25] MEDS: Amiodarone Premix 360 MG/200 ML BAG IVC SCH (01:09)
[2018-04-25] MEDS: Nitroglycerin 25 MG/250 ML INFUS..BTL IVC SCH ×4 (04:25→19:41)
[2018-04-25] MEDS: niCARdipine 40 MG/200 ML MLS IVC SCH ×3 (04:25→20:13)
[2018-04-25 04:32] LABS: Basophils % 0.2 %; Eosinophils # 0.4 K/mcL (0.0-0.6); Eosinophils % 2.7 %; Hematocrit 21.8 % (37.5-50.1); Hemoglobin 7.2 g/dL (12.9-16.9); Immature Granulocytes % 1.1 % (0-4); Lymphocytes # 2.8 K/mcL (0.6-4.6); Lymphocytes % 20.5 %; Mean Corpuscular Volume 87.9 fL (83.0-100.0); Monocytes # 1.5 K/mcL (0.0-1.3); Nucleated Red Blood Cells 0.4 /100 WBC (0); Platelet Count 136 K/mcL (140-400); Red Blood Count 2.48 M/mcL (4.19-5.50); Red Cell Distribution Width 16.2 % (11.5-14.5); Segmented Neutrophils % 64.5 %
[2018-04-25 04:39] LABS: BUN/Creatinine Ratio 13 (6-26); Blood Urea Nitrogen 12 mg/dL (8-23); Calcium 7.7 mg/dL (8.6-10.3); Carbon Dioxide 25 mEq/L (23-29); Chloride 103 mEq/L (98-107); Glucose 123 mg/dL (70-105); Osmolality,Calculated 277 (280-300); Potassium 3.6 mEq/L (3.5-5.1); Sodium 133 mEq/L (136-145); eGFR For Non-African Americans > 60 (> 60)
[2018-04-25 05:02] LABS: Neutrophils # 8.6 K/mcL (1.6-8.9)
[2018-04-25 06:32] LABS: Platelet Estimate Normal (Normal)
--- NOTE | 2018-04-25 07:46 | Pulmonology Progress Note ---
Date of Encounter: 04/25/18 Time of Encounter: 07:45 Assessment and Plan (1) Bacteremia Current Visit: Yes Status: Acute This is secondary to stenotrophomonas Remains on IV Levaquin Infectious disease following Duration of treatment likely 14 days This should also cover any sort of intra-abdominal infection for example SBP although I feel this is less likely (2) Decompensated hepatic cirrhosis Current Visit: Yes Status: Acute Continue albumin Continue Lasix Nadolol has been started cont Rifaxmin GI Consulted Could consider Aldactone however his blood pressure is borderline today (3) HEIDY (obstructive sleep apnea) Current Visit: Yes Status: Acute He will need outpatient pulmonary follow-up for formal polysomnogram (4) Coronary artery disease Current Visit: Yes Status: Acute Status post CABG being followed by cardiothoracic surgery defer management of chest tube removal to them Qualifiers: Coronary Disease-Associated Artery/Lesion type: [place] artery [place] vs. transplanted heart: [place] heart Associated angina: with stable angina Qualified Code(s): I25.118 - Atherosclerotic heart disease of [place] coronary artery with other forms of angina pectoris Subjective Principal diagnosis: sepsis Interval history: No acute events overnight. Patient's been about 4 L negative over last 48 hours. Interventional radiology was consulted for paracentesis but there is a possibility of ascitic fluid when they will over to perform paracentesis and so that was deferred. Patient thinks that his belly is less distended and legs are less swollen. Infectious disease and gastroenterology of both evaluated the patient pending formal recommendations. He remains afebrile Objective PUL Vital signs: Last Vital Signs Temp 98.3 F 04/25/18 04:02 Pulse 85 04/25/18 05:00 Resp 14 04/25/18 07:41 BP 111/60 04/25/18 05:00 Pulse Ox 92 04/25/18 07:41 General appearance: no acute distress ENT: oropharynx moist Neck: supple, JVD Effort: normal Auscultation: bilateral: rales, other (Chest tube noted in satisfactory position ) Cardiovascular: irregular rhythm Gastrointestinal: normoactive bowel sounds, other (Distended and mildly tender to deep palpation) Extremities: no cyanosis, no clubbing, pink and warm, anasarca Musculoskeletal: no deformities normal mental status, non-focal exam mood appropriate Results - Laboratory Findings CBC and BMP: 04/25/18 04:00 04/25/18 04:00 ABG ABG pH 7.42 pH Units (7.32-7.45) 04/18/18 17:20 ABG pCO2 38 mmHg (35-45) 04/18/18 17:20 ABG pO2 83 mmHg (85-104) L 04/18/18 17:20 ABG O2 Saturation 96 % (95-98) 04/18/18 17:20 PT/INR, D-dimer PT 20.8 Seconds (9.4-12.1) H 04/24/18 03:43 Abnormal lab findings: Abnormal lab results WBC 13.4 K/mcL (4.3-11.1) H 04/25/18 04:00 RBC 2.48 M/mcL (4.19-5.50) L 04/25/18 04:00 Hgb 7.2 g/dL (12.9-16.9) L 04/25/18 04:00 Hct 21.8 % (37.5-50.1) L 04/25/18 04:00 RDW 16.2 % (11.5-14.5) H 04/25/18 04:00 Plt Count 136 K/mcL (140-400) L 04/25/18 04:00 Monocytes # 1.5 K/mcL (0.0-1.3) H 04/25/18 04:00 Nucleated RBCs/100 WBC 0.4 /100 WBC (0) H 04/25/18 04:00 Immature Plt Fraction 7.3 % (1.1-6.1) H 04/22/18 04:55 PT 20.8 Seconds (9.4-12.1) H 04/24/18 03:43 ABG pO2 83 mmHg (85-104) L 04/18/18 17:20 ABG Hematocrit 27.0 % (37.5-50.1) L 04/15/18 12:28 Glucose 157 mg/dL (60-95) H 04/15/18 12:28 Sodium 133 mEq/L (136-145) L 04/25/18 04:00 Glucose 123 mg/dL (70-105) H 04/25/18 04:00 POC Glucose 121 mg/dL (70-99) H 04/25/18 07:28 Calculated Osmolality 277 (280-300) L 04/25/18 04:00 Calcium 7.7 mg/dL (8.6-10.3) L 04/25/18 04:00 Total Bilirubin 2.0 mg/dL (0.3-1.0) H 04/22/18 04:55 Direct Bilirubin 0.8 mg/dL (0.0-0.2) H 04/22/18 04:55 Serum Total Protein 4.7 g/dL (6.4-8.9) L 04/22/18 04:55 Albumin 2.8 g/dL (3.5-5.7) L 04/22/18 04:55 Globulin 1.9 g/dL (2.4-3.5) L 04/22/18 04:55 Procalcitonin 7.04 ng/mL (<=0.07) H 04/20/18 12:00 Arterial Blood Ionized Calcium 0.90 mmol/L (1.15-1.35) L 04/15/18 12:28 - Microbiology Findings Microbiology Findings: Microbiology, Last 48 Hours 04/24/18 16:10 Blood Culture - Preliminary Peripheral Venipuncture Culture is incubating and being continuously monitored for growth. Final report to follow. 04/24/18 16:15 Blood Culture - Preliminary Peripheral Venipuncture Culture is incubating and being continuously monitored for growth. Final report to follow. 04/21/18 16:10 Blood Culture - Final Central Venous Catheter Stenotrophomonas maltophilia 04/21/18 21:30 Catheter Tip Culture - Preliminary Intravenous or Arterial Cath Gram Negative Guy 04/20/18 10:23 Blood Culture - Final Peripheral Venipuncture Stenotrophomonas maltophilia 04/20/18 10:23 Blood Culture - Final Peripheral Venipuncture Stenotrophomonas maltophilia 04/20/18 10:05 Blood Culture - Final Central Venous Catheter Stenotrophomonas maltophilia - Clinical Findings Intake & Output: Intake & Output 04/24/18 04/24/18 04/25/18 15:59 23:59 07:59 Intake Total 300 / 300 550 / 550 300 / 300 Output Total 2180 / 2180 2440 / 2440 490 / 490 Balance -1880 / -1880 -1890 / -1890 -190 / -190 Weight 144.13 kg - VTE Reasons for not Prescribing Prophylaxis: Medical contraindication Consult Discharge Plan - Plan Referrals: Jyothi Vera [Primary Care Provider] -
[2018-04-25] MEDS ORDERED: 0.9 % Sodium Chloride 250 ML ONE (08:54)
--- NOTE | 2018-04-25 09:07 | Cardiothoracic Progress Note ---
Date of Encounter: 04/25/18 Time of Encounter: 09:05 - Assessment and plan (1) Coronary artery disease Current Visit: Yes Status: Acute I will give the patient 1 unit of packed red blood cells for hemoglobin of 7.2, which is symptomatic. I will switch him from IV to by mouth amiodarone. We will not start heparin or any other blood thinners as his prothrombin time is 20. Qualifiers: Coronary Disease-Associated Artery/Lesion type: [place] artery [place] vs. transplanted heart: [place] heart Associated angina: with stable angina Qualified Code(s): I25.118 - Atherosclerotic heart disease of [place] coronary artery with other forms of angina pectoris - Subjective Interval history: The patient complains of slight dizziness upon arising. He is tolerating his diet. Vital Signs, Last 4 Hours Temp Resp Pulse Ox 04/25/18 08:00 99.1 F 04/25/18 07:41 14 92 Oxgyen Flow Rate Oxygen Flow Rate (LPM) 0 Clinical Data, last 8 Hours Output, Chest Tube Drainage 0 Amount [Mediastinal #2] Output, Chest Tube Drainage 70 Amount [Mediastinal #2] Output, Chest Tube Drainage 110 Amount [Mediastinal #1] Output, Chest Tube Drainage 60 Amount [Mediastinal #1] Output, Urine Amount 200 Weight 04/23/18 04/24/18 04/25/18 23:59 23:59 23:59 Weight 142.4 kg 144.13 kg Lungs are clear to percussion and auscultation. Heart is in atrial fibrillation. All incisions are healing well without signs of infection and the sternum is stable. The chest tube drainage is decreasing, but he put out 240 mL last shift. - Labs 04/25/18 04:00 04/25/18 04:00 Lab Results, Last 24 hours 04/25/18 04/25/18 04:00 04:00 WBC 13.4 H Hgb 7.2 L Hct 21.8 L Plt Count 136 L Sodium 133 L Potassium 3.6 Chloride 103 Carbon Dioxide 25 BUN 12 Creatinine 0.96 Glucose 123 H Calcium 7.7 L - VTE Reasons for not Prescribing Prophylaxis: Medical contraindication Consult Discharge Plan - Plan Referrals: Jyothi Vera [Primary Care Provider] -
--- NOTE | 2018-04-25 09:21 | Infectious Disease Progress No ---
Date of Encounter: 04/25/18 Time of Encounter: 09:19 - Assessment and Plan (1) Sepsis Current Visit: Yes Status: Acute The patient had 4 sepsis criteria. Likely secondary to collapse seen. Improved clinically. White blood cell count has been worsening over the past couple of days, but he has been afebrile and tachycardia has improved. Blood cultures drawn 04/20/18. 3 sets were positive for stenotrophomonas. Repeat blood cultures drawn 04/21/18 were also +2 out of 2 sets. Repeat blood cultures drawn 04/24/18 are pending 2 sets. Qualifiers: Sepsis type: sepsis due to unspecified organism Qualified Code(s): A41.9 - Sepsis, unspecified organism (2) CLABSI (central line-associated bloodstream infection) Current Visit: Yes Status: Acute Causative organism: Stenotrophomonas. Source: Likely the patient's central line, which was removed 04/21/18. Blood cultures drawn 04/20/18. 3 sets were positive for stenotrophomonas, one from CVC and two peripheral. Time to positivity for CVC was 17 hours, peripheral 23 hours. Repeat blood cultures drawn 04/21/18 were also +2 out of 2 sets (one CVC and one peripheral). Repeat blood cultures drawn 04/24/18 are pending 2 sets (peripheral). Catheter tip culture was positive as well. Continue Levaquin 750 mg IV daily. Duration of treatment and the clinical picture, but likely a total of 14 days from the first set of negative blood cultures. Monitor renal function and dose adjust antibiotics. Qualifiers: Encounter type: initial encounter Qualified Code(s): T80.211A - Bloodstream infection due to central venous catheter, initial encounter (3) Decompensated hepatic cirrhosis Current Visit: Yes Status: Acute Likely secondary to Wright. INR 1.8. LFTs and alkaline phosphatase are within normal limits. Multiple course 21. Abdominal ultrasound revealed diffuse ascites. IR was consulted, but does not feel there is enough fluid to perform paracentesis. GI consulted. Appreciate recommendations. (4) S/P CABG x 5 Current Visit: Yes Status: Acute Status post CABG 04/15/18 (AYERS to LAD, SVG to D1, SVG to OM1, SVG to PDA). Cardiothoracic surgery continues to follow. (5) Ascites Current Visit: Yes Status: Acute Etiology not clear, but could be reactive secondary to recent surgery and infection. Clinically does not appear to have SBP. GI consulted. IR consulted, but does not feel there is enough fluid to perform a paracentesis. Qualifiers: Ascites type: other type Qualified Code(s): R18.8 - Other ascites (6) Hyperbilirubinemia Current Visit: Yes Status: Acute (7) Drug allergy, antibiotic Current Visit: Yes Status: Acute Penicillin allergy reported, but tolerated cefepime without a problem. (8) End stage liver disease Current Visit: Yes Status: Acute Secondary to [place]. MELD score 21. GI consult and following. (9) WRIGHT (nonalcoholic steatohepatitis) Current Visit: Yes Status: Acute Per patient and family. Denies history of hepatitis. (10) Esophageal varices Current Visit: Yes Status: Acute Secondary to Wright and portal hypertension. Status post banding a few weeks ago. Follows with gastroenterology in [place]. Qualifiers: Esophageal varices type: secondary Esophageal varices bleeding: without bleeding Qualified Code(s): I85.10 - Secondary esophageal varices without bleeding (11) Coronary artery disease Current Visit: Yes Status: Acute Qualifiers: Coronary Disease-Associated Artery/Lesion type: [place] artery [place] vs. transplanted heart: [place] heart Associated angina: with stable angina Qualified Code(s): I25.118 - Atherosclerotic heart disease of [place] coronary artery with other forms of angina pectoris (12) HEIDY (obstructive sleep apnea) Current Visit: Yes Status: Acute - Subjective Interval history: Patient seen and examined. No acute events noted overnight. Patient states overall he does not feel very well. He denies any fevers or chills or rigors. States he feels like he is unable to get a deep breath and feels somewhat short of breath. He reports a cough productive of clear sputum. He denies any pain in his chest. He does complain of discomfort in his extremities because he is so edematous. He reports nausea after taking medications last night. Denies any vomiting or diarrhea. Reports her bowel movement this morning. Denies any urinary complaints. Denies abdominal pain. Denies any oral thrush or new skin lesions. Infect Dis PN-Objective Data - Labs CBC & Chem 7: 04/25/18 04:00 04/25/18 04:00 Labs: Laboratory Results - last 24 hr 04/24/18 04/24/18 04/24/18 11:20 15:21 19:58 WBC RBC Hgb Hct MCV MCH MCHC RDW Plt Count MPV Immature Gran % Seg Neutrophils % Lymphocytes % Monocytes % Eosinophils % Basophils % Neutrophils # Lymphocytes # Monocytes # Eosinophils # Basophils # Nucleated RBCs/100 WBC Platelet Estimate Sodium Potassium Chloride Carbon Dioxide BUN Creatinine Est GFR ( Amer) Est GFR (Non-Af Amer) BUN/Creatinine Ratio Glucose POC Glucose 166 H 155 H 149 H Calculated Osmolality Calcium 04/25/18 04/25/18 04/25/18 04:00 04:00 07:28 WBC 13.4 H RBC 2.48 L Hgb 7.2 L Hct 21.8 L MCV 87.9 MCH 29.0 MCHC 33.0 RDW 16.2 H Plt Count 136 L MPV 11.0 Immature Gran % 1.1 Seg Neutrophils % 64.5 Lymphocytes % 20.5 Monocytes % 11.0 Eosinophils % 2.7 Basophils % 0.2 Neutrophils # 8.6 Lymphocytes # 2.8 Monocytes # 1.5 H Eosinophils # 0.4 Basophils # 0.0 Nucleated RBCs/100 WBC 0.4 H Platelet Estimate Normal Sodium 133 L Potassium 3.6 Chloride 103 Carbon Dioxide 25 BUN 12 Creatinine 0.96 Est GFR ( Amer) > 60 Est GFR (Non-Af Amer) > 60 BUN/Creatinine Ratio 13 Glucose 123 H POC Glucose 121 H Calculated Osmolality 277 L Calcium 7.7 L Cultures: Cultures 04/24/18 16:10 Blood Culture - Preliminary Peripheral Venipuncture Culture is incubating and being continuously monitored for growth. Final report to follow. 04/24/18 16:15 Blood Culture - Preliminary Peripheral Venipuncture Culture is incubating and being continuously monitored for growth. Final report to follow. 04/21/18 16:10 Blood Culture - Final Central Venous Catheter Stenotrophomonas maltophilia 04/21/18 21:30 Catheter Tip Culture - Preliminary Intravenous or Arterial Cath Gram Negative Guy 04/20/18 10:23 Blood Culture - Final Peripheral Venipuncture Stenotrophomonas maltophilia 04/20/18 10:23 Blood Culture - Final Peripheral Venipuncture Stenotrophomonas maltophilia 04/20/18 10:05 Blood Culture - Final Central Venous Catheter Stenotrophomonas maltophilia 04/21/18 15:35 Blood Culture - Preliminary Peripheral Venipuncture Gram Negative Guy 04/20/18 10:00 Urine Culture - Final Urine,Catheterized No growth. Serology 04/21/18 04/20/18 Range/Units 16:10 10:05 A. baumannii (PCR) Not Detected Not Detected (Not Detect) Lilo albicans (PCR) Not Detected Not Detected (Not Detect) C. glabrata (PCR) Not Detected Not Detected (Not Detect) C. krusei (PCR) Not Detected Not Detected (Not Detect) C. parapsilosis (PCR) Not Detected Not Detected (Not Detect) C. tropicalis (PCR) Not Detected Not Detected (Not Detect) Enterobacteriac sp PCR Not Detected Not Detected (Not Detect) E. cloacae complex PCR Not Detected Not Detected (Not Detect) Enterococcus sp PCR Not Detected Not Detected (Not Detect) E. coli (PCR) Not Detected Not Detected (Not Detect) H. influenzae (PCR) Not Detected Not Detected (Not Detect) Klebsiella oxytoca PCR Not Detected Not Detected (Not Detect) Klebsiella pneumoniae Not Detected Not Detected (Not Detect) List. monocytogenes PCR Not Detected Not Detected (Not Detect) N. meningitidis (PCR) Not Detected Not Detected (Not Detect) Proteus species (PCR) Not Detected Not Detected (Not Detect) Serratia marcescens PCR Not Detected Not Detected (Not Detect) Staphylococcus sp PCR Not Detected Not Detected (Not Detect) Staph aureus (PCR) Not Detected Not Detected (Not Detect) mecA-Methicil Res Gene Not Detected N/A (Not Detect) Streptococcus sp PCR Not Detected Not Detected (Not Detect) Group A Strep DNA Not Detected Not Detected (Not Detect) Group B Strep (PCR) Not Detected Not Detected (Not Detect) Strep pneumoniae (PCR) Not Detected Not Detected (Not Detect) P. aeruginosa (PCR) Not Detected Not Detected (Not Detect) Alyx/B-Vanco Res Genes Not Detected N/A (Not Detect) KPC (blaKPC) Detect PCR Not Detected N/A (Not Detect) - Impressions Impressions Abdomen/Pelvis/Transvag US 04/24/18 07:02 IMPRESSION: Small amount of ascites, not enough to perform a therapeutic paracentesis. D/ / 04/24/2018 10:45:43 Patricia Colon MD / Amanda Luna Interpreting Provider: Patricia Colon MD Exam - Constitutional Vitals: Temp Pulse Resp BP Pulse Ox 99.1 F 85 14 111/60 92 04/25/18 08:00 04/25/18 05:00 04/25/18 07:41 04/25/18 05:00 04/25/18 07:41 General appearance: cooperative, morbidly obese, no acute distress - Head Head exam: Present: atraumatic, normal inspection, normocephalic - Eye Eye exam: Present: EOMI, normal appearance, PERRL Pupils: Present: normal accommodation - ENT ENT exam: Present: mucous membranes moist - Neck Neck exam: Present: normal inspection - Respiratory Respiratory exam: Present: CTAB. Absent: rales, respiratory distress, rhonchi, wheezes - Cardiovascular Cardiovascular exam: Present: irregular rhythm. Absent: tachycardia Additional comments: Mediastinal chest tubes 2 with large amount of serosanguineous drainage noted. Midsternal surgical site with YUKI dressing intact. - GI/Abdominal GI/Abdominal exam: Present: distended (Obese), normal bowel sounds, soft. Absent: tenderness - Extremities Exam Extremities exam: Present: normal inspection, pedal edema (1+ bilateral lower extremities). Absent: joint swelling, tenderness - Neurological Exam Neurological exam: Present: alert, oriented X3, no focal deficits - Psychiatric Psychiatric exam: Present: normal affect, normal mood - Skin Skin exam: Present: dry, intact, normal color, warm - Additional findings Additional findings: PICC line noted to the right upper extremity with transparent dressing clean, dry, and intact. - VTE Reasons for not Prescribing Prophylaxis: Medical contraindication Consult Discharge Plan - Plan Referrals: Jyothi Vera [Primary Care Provider] - - Attending Attestation I examined this patient and my medical decision-making was reviewed with the Resident Physician. I agree with the documented findings, disposition and treatment plan as described except to the extent set forth below.
[2018-04-25] MEDS: Furosemide 40 MG/4 ML VIAL IVP SCH ×2 (09:33→17:40)
[2018-04-25] MEDS: Albumin 25% 25gram/100mL 25 GM/100 ML IV.SOLN IVPB SCH ×3 (09:33→23:18)
[2018-04-25] MEDS: Chlorhexidine Rinse 15 ML MOUTHWASH MM SCH ×2 (09:34→20:13)
[2018-04-25] MEDS: Aspirin Enteric Coated 81 MG Tablet PO SCH (09:34)
[2018-04-25] MEDS: Pantoprazole 40 MG VIAL IVP SCH (09:35)
--- NOTE | 2018-04-25 09:39 | Gastroenterology Progress Note ---
<Stephenie Jimenez - Last Filed: 04/25/18 10:12> Date of Encounter: 04/25/18 Time of Encounter: 09:39 - Assessment and plan (1) Decompensated hepatic cirrhosis Current Visit: Yes Status: Acute Assessment and plan: Patient has history of cirrhosis with esophageal varices that have been banded a few weeks ago. PT 20.8, INR 1.8 LFTs, alkaline phosphatase WNL MELD score 21 Abdominal ultrasound yesterday demonstrated diffuse ascites IR-paracentesis today however there is not enough fluid to perform the tap plan: -patient is doing well and not in acute liver failure. He was seen at bedside with Dr. Daly. Continue current management. -recommend continue IV Protonix, rifamixin, albumin, lasix. May increase nadolol blood pressure tolerates. -will request records from the patient's safety officer in [place] (2) Coronary artery disease Current Visit: Yes Status: Acute Assessment and plan: status post CABG4 and modified Maze procedure -management per cardiology and primary team Qualifiers: Coronary Disease-Associated Artery/Lesion type: [place] artery [place] vs. transplanted heart: [place] heart Associated angina: with stable angina Qualified Code(s): I25.118 - Atherosclerotic heart disease of [place] coronary artery with other forms of angina pectoris - Time Spent With Patient Total time spent is greater than 50% in coordination of care (as documented) at patient's floor/unit and/or counseling patient: - Subjective Interval history: Patient was seen and examined that bedside with Dr. Daly and questions were answered. He is alert and oriented times 3 and no acute distress. He denied chest pain, abdominal pain, nausea, vomiting, jaundice. There were no overnight events. - Constitutional Vitals: Temp Pulse Resp BP Pulse Ox 99.1 F 85 14 111/60 92 04/25/18 08:00 04/25/18 05:00 04/25/18 07:41 04/25/18 05:00 04/25/18 07:41 Exam: Gen.: Vitals noted. No acute distress. AAOx3 HEENT: PERRL/EOMI, oropharynx clear, Normocephalic, atraumatic Neck: Supple. No adenopathy. Cardiac: RRR, no murmur, +S1/S2 Pulmonary: CTA bilaterally, no wheezes, rales or rhonchi, equal chest expansion Abdomen: soft, nontender, Bowel sounds noted, no guarding Back: Nontender throughout. MSK: ROM intact, no joint swelling noted Extremities: no BLE edema, nontender calf, no cyanosis or clubbing Neuro: A&Ox3, moves all extremities, no focal deficits Psych: Appropriate mood and behavior Results - Labs CBC & Chem 7: 04/25/18 04:00 04/25/18 04:00 Labs: Last Result Calcium 7.7 mg/dL (8.6-10.3) L 04/25/18 04:00 Entire Visit Hgb 7.2 g/dL (12.9-16.9) L 04/25/18 04:00 Hct 21.8 % (37.5-50.1) L 04/25/18 04:00 PT 20.8 Seconds (9.4-12.1) H 04/24/18 03:43 Total Bilirubin 2.0 mg/dL (0.3-1.0) H 04/22/18 04:55 AST 29 Units/L (13-39) 04/22/18 04:55 ALT 49 Units/L (7-52) 04/22/18 04:55 E. coli (PCR) Not Detected (Not Detect) 04/21/18 16:10 - ABG ABG results: ABG ABG pH 7.42 pH Units (7.32-7.45) 04/18/18 17:20 ABG pCO2 38 mmHg (35-45) 04/18/18 17:20 ABG pO2 83 mmHg (85-104) L 04/18/18 17:20 ABG O2 Saturation 96 % (95-98) 04/18/18 17:20 PT/INR, D-dimer PT 20.8 Seconds (9.4-12.1) H 04/24/18 03:43 - Impressions Impressions Abdomen/Pelvis/Transvag US 04/24/18 07:02 IMPRESSION: Small amount of ascites, not enough to perform a therapeutic paracentesis. D/ / 04/24/2018 10:45:43 Patricia Colon MD / Amanda Luna Interpreting Provider: Patricia Colon MD - VTE Reasons for not Prescribing Prophylaxis: Medical contraindication Consult Discharge Plan - Plan Referrals: Ev Flores MD [Partnered Physician] - 05/29/18 2:50 pm Forrest Foster DO [Partnered Physician] - 05/12/18 9:30 am Jyothi Vera [Primary Care Provider] - 05/09/18 9:00 am <Brandyn Daly - Last Filed: 05/02/18 07:32> - Time Spent With Patient Total time spent is greater than 50% in coordination of care (as documented) at patient's floor/unit and/or counseling patient: - Constitutional Vitals: Temp Pulse Resp BP Pulse Ox 98.3 F 83 16 125/73 90 05/02/18 03:05 05/02/18 03:05 05/02/18 03:07 05/02/18 03:05 05/02/18 03:07 Results - Labs CBC & Chem 7: 05/02/18 03:10 05/02/18 03:10 Labs: Last Result Calcium 8.9 mg/dL (8.6-10.3) 05/02/18 03:10 Entire Visit Hgb 9.4 g/dL (12.9-16.9) L 05/02/18 03:10 Hct 29.0 % (37.5-50.1) L 05/02/18 03:10 PT 18.7 Seconds (9.4-12.1) H 04/30/18 05:55 Total Bilirubin 4.2 mg/dL (0.3-1.0) H 04/29/18 10:00 AST 20 Units/L (13-39) 04/29/18 10:00 ALT 11 Units/L (7-52) 04/29/18 10:00 E. coli (PCR) Not Detected (Not Detect) 04/21/18 16:10 - ABG ABG results: ABG ABG pH 7.42 pH Units (7.32-7.45) 04/18/18 17:20 ABG pCO2 38 mmHg (35-45) 04/18/18 17:20 ABG pO2 83 mmHg (85-104) L 04/18/18 17:20 ABG O2 Saturation 96 % (95-98) 04/18/18 17:20 PT/INR, D-dimer PT 18.7 Seconds (9.4-12.1) H 04/30/18 05:55 - Impressions Impressions Chest X-Ray 05/01/18 12:10 IMPRESSION: Stable trace left apical pneumothorax. Cardiomegaly, with worsening left basilar airspace disease and pleural effusion which may be related to pneumonia and parapneumonic effusion. D/ / Tyrell Leone MD / Tyrell Leone MD Interpreting Provider: Tyrell Leone MD Chest X-Ray 05/02/18 06:00 IMPRESSION: 1. Right PICC line appears unchanged in position. 2. Unchanged moderate to large left pleural effusion with likely left basilar atelectasis. 3. Mild persistent enlargement of the cardiac silhouette. 4. No convincing pneumothorax. D/ / Dale Gudino MD / Dale Gudino MD Interpreting Provider: Dale Gudino MD - Attending Attestation agree. Will need to see records from [place] - these have been requested. Supportive care for now. I have personally performed a face to face evaluation on this patient. I have reviewed and agree with the care plan. History and Exam by me shows:
[2018-04-25] MEDS: Insulin LISPRO 300 UNITS/3 ML VIAL SQ SCH ×4 (10:51→19:42)
[2018-04-25] MEDS: Levofloxacin 750 MG/150 ML 750 MG/150 ML BAG IVPB SCH (13:13)
[2018-04-25] MEDS: *HR* Amiodarone 200 MG TABLET PO SCH (13:14)
[2018-04-25] MEDS: Norepinephrine 4 MG in D5% in Water 250 ML IVC SCH (18:04)
[2018-04-25] MEDS: Ondansetron 4 MG/2 ML VIAL IVP PRN (22:06)
--- NOTE | 2018-04-26 06:38 | Pulmonology Progress Note ---
Date of Encounter: 04/26/18 Time of Encounter: 06:38 Assessment and Plan (1) Bacteremia Current Visit: Yes Status: Acute This is secondary to stenotrophomonas Remains on IV Levaquin Infectious disease following Duration of treatment likely 14 days This should also cover any sort of intra-abdominal infection for example SBP although I feel this is less likely (2) Decompensated hepatic cirrhosis Current Visit: Yes Status: Acute Cont diuresis today f/u labs which are pending Continue albumin Continue Lasix Nadolol has been started and will be titrated as tolerated by MAP cont Rifaxmin GI Consulted (3) HEIDY (obstructive sleep apnea) Current Visit: Yes Status: Acute He will need outpatient pulmonary follow-up for formal polysomnogram (4) Coronary artery disease Current Visit: Yes Status: Acute Status post CABG being followed by cardiothoracic surgery defer management of chest tube removal to them Qualifiers: Coronary Disease-Associated Artery/Lesion type: [place] artery [place] vs. transplanted heart: [place] heart Associated angina: with stable angina Qualified Code(s): I25.118 - Atherosclerotic heart disease of [place] coronary artery with other forms of angina pectoris Subjective Principal diagnosis: sepsis Interval history: No acute events overnight. He continues to feel better and says that he is a lot less fluid overloaded. He was sitting up injuring breakfast when I examined him he denied complaints today other than he is ready to get out of the hospital as soon as possible Objective PUL Vital signs: Last Vital Signs Temp 98.3 F 04/26/18 03:45 Pulse 75 04/26/18 06:00 Resp 20 04/26/18 06:00 BP 105/51 04/26/18 06:00 Pulse Ox 91 04/26/18 06:00 General appearance: no acute distress Eyes: nonicteric Neck: supple, no lymphadenopathy Effort: normal Auscultation: bilateral: rales (in lung bases ) Cardiovascular: irregular rhythm Gastrointestinal: normoactive bowel sounds, soft, other (level of distension and wall edema is less than previous days exam ) Integumentary: normal Extremities: anasarca Musculoskeletal: no deformities normal mental status, non-focal exam mood appropriate Results - Laboratory Findings CBC and BMP: 04/25/18 04:00 04/25/18 04:00 ABG ABG pH 7.42 pH Units (7.32-7.45) 04/18/18 17:20 ABG pCO2 38 mmHg (35-45) 04/18/18 17:20 ABG pO2 83 mmHg (85-104) L 04/18/18 17:20 ABG O2 Saturation 96 % (95-98) 04/18/18 17:20 PT/INR, D-dimer PT 20.8 Seconds (9.4-12.1) H 04/24/18 03:43 Abnormal lab findings: Abnormal lab results WBC 13.4 K/mcL (4.3-11.1) H 04/25/18 04:00 RBC 2.48 M/mcL (4.19-5.50) L 04/25/18 04:00 Hgb 7.2 g/dL (12.9-16.9) L 04/25/18 04:00 Hct 21.8 % (37.5-50.1) L 04/25/18 04:00 RDW 16.2 % (11.5-14.5) H 04/25/18 04:00 Plt Count 136 K/mcL (140-400) L 04/25/18 04:00 Monocytes # 1.5 K/mcL (0.0-1.3) H 04/25/18 04:00 Nucleated RBCs/100 WBC 0.4 /100 WBC (0) H 04/25/18 04:00 Immature Plt Fraction 7.3 % (1.1-6.1) H 04/22/18 04:55 PT 20.8 Seconds (9.4-12.1) H 04/24/18 03:43 ABG pO2 83 mmHg (85-104) L 04/18/18 17:20 ABG Hematocrit 27.0 % (37.5-50.1) L 04/15/18 12:28 Glucose 157 mg/dL (60-95) H 04/15/18 12:28 Sodium 133 mEq/L (136-145) L 04/25/18 04:00 Glucose 123 mg/dL (70-105) H 04/25/18 04:00 POC Glucose 160 mg/dL (70-99) H 04/25/18 19:39 Calculated Osmolality 277 (280-300) L 04/25/18 04:00 Calcium 7.7 mg/dL (8.6-10.3) L 04/25/18 04:00 Magnesium 1.5 mg/dL (1.6-2.6) L 04/25/18 09:45 Total Bilirubin 2.0 mg/dL (0.3-1.0) H 04/22/18 04:55 Direct Bilirubin 0.8 mg/dL (0.0-0.2) H 04/22/18 04:55 Serum Total Protein 4.7 g/dL (6.4-8.9) L 04/22/18 04:55 Albumin 2.8 g/dL (3.5-5.7) L 04/22/18 04:55 Globulin 1.9 g/dL (2.4-3.5) L 04/22/18 04:55 Procalcitonin 7.04 ng/mL (<=0.07) H 04/20/18 12:00 Arterial Blood Ionized Calcium 0.90 mmol/L (1.15-1.35) L 04/15/18 12:28 - Microbiology Findings Microbiology Findings: Microbiology, Last 48 Hours 04/21/18 15:35 Blood Culture - Final Peripheral Venipuncture Stenotrophomonas maltophilia 04/24/18 16:10 Blood Culture - Preliminary Peripheral Venipuncture Culture is incubating and being continuously monitored for growth. Final report to follow. 04/24/18 16:15 Blood Culture - Preliminary Peripheral Venipuncture Culture is incubating and being continuously monitored for growth. Final report to follow. 04/21/18 16:10 Blood Culture - Final Central Venous Catheter Stenotrophomonas maltophilia 04/21/18 21:30 Catheter Tip Culture - Preliminary Intravenous or Arterial Cath Gram Negative Guy - Clinical Findings Intake & Output: Intake & Output 04/25/18 04/25/18 04/26/18 15:59 23:59 07:59 Intake Total 460 / 460 444 / 444 545 / 545 Output Total 1920 / 1920 904 / 904 256 / 256 Balance -1460 / -1460 -460 / -460 289 / 289 - VTE Reasons for not Prescribing Prophylaxis: Medical contraindication Consult Discharge Plan - Plan Referrals: Jyothi Vera [Primary Care Provider] -
[2018-04-26] MEDS: niCARdipine 40 MG/200 ML MLS IVC SCH ×3 (07:27→20:18)
[2018-04-26] MEDS: Nitroglycerin 25 MG/250 ML INFUS..BTL IVC SCH ×4 (07:27→20:19)
[2018-04-26] MEDS: Insulin LISPRO 300 UNITS/3 ML VIAL SQ SCH ×4 (07:38→20:16)
[2018-04-26] MEDS: Pantoprazole 40 MG VIAL IVP SCH (07:38)
[2018-04-26] MEDS: Furosemide 40 MG/4 ML VIAL IVP SCH ×2 (07:38→17:28)
[2018-04-26] MEDS: Chlorhexidine Rinse 15 ML MOUTHWASH MM SCH ×2 (07:39→20:18)
[2018-04-26] MEDS: *HR* Amiodarone 200 MG TABLET PO SCH (07:39)
[2018-04-26] MEDS: Albumin 25% 25gram/100mL 25 GM/100 ML IV.SOLN IVPB SCH ×3 (07:47→23:02)
[2018-04-26] MEDS: Aspirin Enteric Coated 81 MG Tablet PO SCH (07:49)
[2018-04-26 10:44] LABS: Basophils % 0.2 %; Eosinophils # 0.3 K/mcL (0.0-0.6); Eosinophils % 2.4 %; Hematocrit 22.7 % (37.5-50.1); Hemoglobin 7.5 g/dL (12.9-16.9); Immature Granulocytes % 0.9 % (0-4); Lymphocytes # 1.9 K/mcL (0.6-4.6); Lymphocytes % 15.8 %; Mean Corpuscular Hemoglobin 29.5 pg (28.0-33.3); Mean Corpuscular Volume 89.4 fL (83.0-100.0); Mean Platelet Volume 10.6 fL (9.4-12.4); Monocytes # 1.2 K/mcL (0.0-1.3); Monocytes % 9.5 %; Neutrophils # 8.8 K/mcL (1.6-8.9); Nucleated Red Blood Cells 0.2 /100 WBC (0); Platelet Count 127 K/mcL (140-400); Red Blood Count 2.54 M/mcL (4.19-5.50); Red Cell Distribution Width 16.2 % (11.5-14.5); Segmented Neutrophils % 71.2 %
[2018-04-26 11:03] LABS: BUN/Creatinine Ratio 14 (6-26); Blood Urea Nitrogen 15 mg/dL (8-23); Calcium 7.8 mg/dL (8.6-10.3); Carbon Dioxide 26 mEq/L (23-29); Chloride 102 mEq/L (98-107); Glucose 140 mg/dL (70-105); Magnesium 1.9 mg/dL (1.6-2.6); Osmolality,Calculated 281 (280-300); Potassium 3.6 mEq/L (3.5-5.1); Sodium 134 mEq/L (136-145); eGFR For Non-African Americans > 60 (> 60)
--- NOTE | 2018-04-26 12:12 | Cardiothoracic Progress Note ---
Date of Encounter: 04/26/18 Time of Encounter: 12:11 - Subjective Procedure(s) Performed: The patient was seen and examined. He is postoperative day #11 from a CABG and postop day #8 from takeback for bleeding. He had an uneventful night per report. Notably he has underlying cirrhosis and ascites and has had relatively high chest tube output. His chest tube output has been declining by report. Overnight he had approximately 250 mL out of one chest tube and less than 100 out of the other. Drainage is serous consistent with ascitic fluid. Patient is without any new complaints. Sitting up in chair. Denies any new complaints. Nursing reports no events overnight. We will leave chest tubes in place. Emphasize importance of increased activity, coughing, deep breathing and use of incentive spirometer. Vital Signs, Last 4 Hours Pulse Resp BP Pulse Ox 04/26/18 11:00 69 16 110/67 91 04/26/18 10:00 68 16 103/62 91 04/26/18 09:00 64 16 112/55 94 Oxgyen Flow Rate Oxygen Flow Rate (LPM) 0 Clinical Data, last 8 Hours Output, Chest Tube Drainage 10 Amount [Mediastinal #2] Output, Chest Tube Drainage 120 Amount [Mediastinal #2] Output, Chest Tube Drainage 0 Amount [Mediastinal #2] Output, Chest Tube Drainage 20 Amount [Mediastinal #1] Output, Chest Tube Drainage 460 Amount [Mediastinal #1] Output, Chest Tube Drainage 10 Amount [Mediastinal #1] Output, Urine Amount 120 Weight 04/24/18 04/25/18 04/26/18 23:59 23:59 23:59 Weight 144.13 kg - Labs 04/26/18 10:30 04/26/18 10:30 Lab Results, Last 24 hours 04/26/18 04/26/18 10:30 10:30 WBC 12.3 H Hgb 7.5 L Hct 22.7 L Plt Count 127 L Sodium 134 L Potassium 3.6 Chloride 102 Carbon Dioxide 26 BUN 15 Creatinine 1.05 Glucose 140 H Calcium 7.8 L Magnesium 1.9 - VTE Reasons for not Prescribing Prophylaxis: Medical contraindication Consult Discharge Plan - Plan Referrals: Jyothi Vera [Primary Care Provider] -
[2018-04-26] MEDS: Levofloxacin 750 MG/150 ML 750 MG/150 ML BAG IVPB SCH (14:15)
[2018-04-26] MEDS: Norepinephrine 4 MG in D5% in Water 250 ML IVC SCH (15:30)
[2018-04-26] MEDS: Ondansetron 4 MG/2 ML VIAL IVP PRN (22:58)
[2018-04-27] MEDS: niCARdipine 40 MG/200 ML MLS IVC SCH ×3 (06:59→20:16)
[2018-04-27] MEDS: Nitroglycerin 25 MG/250 ML INFUS..BTL IVC SCH ×3 (07:00→20:16)
[2018-04-27] MEDS: Albumin 25% 25gram/100mL 25 GM/100 ML IV.SOLN IVPB SCH ×2 (07:35→15:33)
[2018-04-27] MEDS: Insulin LISPRO 300 UNITS/3 ML VIAL SQ SCH ×4 (07:35→20:23)
--- NOTE | 2018-04-27 08:01 | Pulmonology Progress Note ---
Date of Encounter: 04/27/18 Time of Encounter: 08:01 Assessment and Plan (1) Bacteremia Current Visit: Yes Status: Acute This is secondary to stenotrophomonas Remains on IV Levaquin Infectious disease following Duration of treatment likely 14 days This should also cover any sort of intra-abdominal infection for example SBP although I feel this is less likely (2) Decompensated hepatic cirrhosis Current Visit: Yes Status: Acute Cont diuresis today f/u labs which are stable Continue albumin Continue Lasix Nadolol has been started and will be titrated as tolerated by MAP cont Rifaxmin GI following (3) HEIDY (obstructive sleep apnea) Current Visit: Yes Status: Acute He will need outpatient pulmonary follow-up for formal polysomnogram (4) Coronary artery disease Current Visit: Yes Status: Acute Status post CABG being followed by cardiothoracic surgery defer management of chest tube removal to them Qualifiers: Coronary Disease-Associated Artery/Lesion type: [place] artery [place] vs. transplanted heart: [place] heart Associated angina: with stable angina Qualified Code(s): I25.118 - Atherosclerotic heart disease of [place] coronary artery with other forms of angina pectoris Subjective Principal diagnosis: sepsis Interval history: No acute events overnight. He continues to feel better and says that he is a lot less fluid overloaded. Denies other complaints. Still with significant output from chest tubes Objective PUL Vital signs: Last Vital Signs Temp 98.2 F 04/27/18 04:00 Pulse 69 04/27/18 07:00 Resp 12 04/27/18 07:00 BP 104/61 04/27/18 07:00 Pulse Ox 97 04/27/18 07:00 General appearance: no acute distress Eyes: nonicteric ENT: oropharynx moist Neck: supple Effort: normal Auscultation: bilateral: rales (in lung bases ) Cardiovascular: regular rate and rhythm Gastrointestinal: normoactive bowel sounds, soft, tender Integumentary: normal Extremities: anasarca (but improved from previous days exam ) Musculoskeletal: no deformities normal mental status, non-focal exam mood appropriate Results - Laboratory Findings CBC and BMP: 04/27/18 08:00 04/27/18 08:00 ABG ABG pH 7.42 pH Units (7.32-7.45) 04/18/18 17:20 ABG pCO2 38 mmHg (35-45) 04/18/18 17:20 ABG pO2 83 mmHg (85-104) L 04/18/18 17:20 ABG O2 Saturation 96 % (95-98) 04/18/18 17:20 PT/INR, D-dimer PT 20.8 Seconds (9.4-12.1) H 04/24/18 03:43 Abnormal lab findings: Abnormal lab results WBC 12.3 K/mcL (4.3-11.1) H 04/26/18 10:30 RBC 2.54 M/mcL (4.19-5.50) L 04/26/18 10:30 Hgb 7.5 g/dL (12.9-16.9) L 04/26/18 10:30 Hct 22.7 % (37.5-50.1) L 04/26/18 10:30 RDW 16.2 % (11.5-14.5) H 04/26/18 10:30 Plt Count 127 K/mcL (140-400) L 04/26/18 10:30 Nucleated RBCs/100 WBC 0.2 /100 WBC (0) H 04/26/18 10:30 Immature Plt Fraction 7.3 % (1.1-6.1) H 04/22/18 04:55 PT 20.8 Seconds (9.4-12.1) H 04/24/18 03:43 ABG pO2 83 mmHg (85-104) L 04/18/18 17:20 ABG Hematocrit 27.0 % (37.5-50.1) L 04/15/18 12:28 Glucose 157 mg/dL (60-95) H 04/15/18 12:28 Sodium 134 mEq/L (136-145) L 04/26/18 10:30 Glucose 140 mg/dL (70-105) H 04/26/18 10:30 POC Glucose 104 mg/dL (70-99) H 04/27/18 07:31 Calcium 7.8 mg/dL (8.6-10.3) L 04/26/18 10:30 Total Bilirubin 2.0 mg/dL (0.3-1.0) H 04/22/18 04:55 Direct Bilirubin 0.8 mg/dL (0.0-0.2) H 04/22/18 04:55 Serum Total Protein 4.7 g/dL (6.4-8.9) L 04/22/18 04:55 Albumin 2.8 g/dL (3.5-5.7) L 04/22/18 04:55 Globulin 1.9 g/dL (2.4-3.5) L 04/22/18 04:55 Procalcitonin 7.04 ng/mL (<=0.07) H 04/20/18 12:00 Arterial Blood Ionized Calcium 0.90 mmol/L (1.15-1.35) L 04/15/18 12:28 - Microbiology Findings Microbiology Findings: Microbiology, Last 48 Hours 04/21/18 21:30 Catheter Tip Culture - Final Intravenous or Arterial Cath Stenotrophomonas maltophilia 04/21/18 15:35 Blood Culture - Final Peripheral Venipuncture Stenotrophomonas maltophilia - Diagnostic Findings Chest x-ray: report reviewed, image reviewed - Clinical Findings Intake & Output: Intake & Output 04/26/18 04/27/18 04/27/18 23:59 07:59 15:59 Intake Total 740 / 740 340 / 340 Output Total 1729 / 1729 160 / 160 Balance -989 / -989 180 / 180 - VTE Reasons for not Prescribing Prophylaxis: Medical contraindication Consult Discharge Plan - Plan Referrals: Jyothi Vera [Primary Care Provider] -
[2018-04-27 08:31] LABS: Hematocrit 23.3 % (37.5-50.1); Hemoglobin 7.4 g/dL (12.9-16.9); Mean Corpuscular HGB Conc 31.8 g/dL (31.6-35.5); Mean Corpuscular Hemoglobin 28.8 pg (28.0-33.3); Mean Corpuscular Volume 90.7 fL (83.0-100.0); Mean Platelet Volume 10.9 fL (9.4-12.4); Platelet Count 140 K/mcL (140-400); Red Blood Count 2.57 M/mcL (4.19-5.50); Red Cell Distribution Width 16.2 % (11.5-14.5)
[2018-04-27] MEDS: Furosemide 40 MG/4 ML VIAL IVP SCH ×2 (08:32→17:04)
[2018-04-27] MEDS: Aspirin Enteric Coated 81 MG Tablet PO SCH (08:33)
[2018-04-27] MEDS: Chlorhexidine Rinse 15 ML MOUTHWASH MM SCH ×2 (08:33→20:20)
[2018-04-27] MEDS: Pantoprazole 40 MG VIAL IVP SCH (08:33)
[2018-04-27] MEDS: *HR* Amiodarone 200 MG TABLET PO SCH (08:34)
[2018-04-27 08:49] LABS: BUN/Creatinine Ratio 14 (6-26); Blood Urea Nitrogen 14 mg/dL (8-23); Calcium 8.1 mg/dL (8.6-10.3); Carbon Dioxide 24 mEq/L (23-29); Chloride 99 mEq/L (98-107); Glucose 116 mg/dL (70-105); Magnesium 1.7 mg/dL (1.6-2.6); Osmolality,Calculated 281 (280-300); Potassium 3.6 mEq/L (3.5-5.1); Sodium 135 mEq/L (136-145); eGFR For Non-African Americans > 60 (> 60)
[2018-04-27] MEDS: Levofloxacin 750 MG/150 ML 750 MG/150 ML BAG IVPB SCH (13:50)
--- NOTE | 2018-04-27 14:05 | Cardiothoracic Progress Note ---
Date of Encounter: 04/27/18 Time of Encounter: 13:59 - Subjective Procedure(s) Performed: The patient was seen and examined. He is postoperative day #12 from a CABG and postop day #9 from takeback for bleeding. He had an uneventful night per report. Notably he has underlying cirrhosis and ascites and has had relatively high chest tube output. His chest tube output has remained relatively high with approimately 1 L and 500 cc in each of the two tubes. The drainage is serous and consistent with ascitic fluid. The patient is without any new complaints. He has been sitting up in chair. I placed the chest tubes to water seal and will leave chest tubes in place. I again emphasized the importance of increased activity, coughing, deep breathing and use of incentive spirometer. Vital Signs, Last 4 Hours Temp Pulse Resp BP Pulse Ox 04/27/18 13:49 16 107/67 98 04/27/18 12:29 98.4 F 04/27/18 12:00 70 20 107/67 92 04/27/18 11:00 64 18 110/58 94 04/27/18 10:00 75 16 115/64 98 Oxgyen Flow Rate Oxygen Flow Rate (LPM) 2 Clinical Data, last 8 Hours Output, Chest Tube Drainage 150 Amount [Mediastinal #2] Output, Chest Tube Drainage 0 Amount [Mediastinal #2] Output, Chest Tube Drainage 0 Amount [Mediastinal #2] Output, Chest Tube Drainage 150 Amount [Mediastinal #1] Output, Chest Tube Drainage 60 Amount [Mediastinal #1] Output, Chest Tube Drainage 100 Amount [Mediastinal #1] Output, Urine Amount 1,500 Output, Urine Amount 350 Weight 04/25/18 04/26/18 04/27/18 23:59 23:59 23:59 Weight 144.13 kg - Physical Examination General: Other (sitting up in chair, NAD) Chest tubes: Other (Chest tubes placed to water seal) - Labs 04/27/18 08:00 04/27/18 08:00 Lab Results, Last 24 hours 04/27/18 04/27/18 08:00 08:00 WBC 9.7 Hgb 7.4 L Hct 23.3 L Plt Count 140 Sodium 135 L Potassium 3.6 Chloride 99 Carbon Dioxide 24 BUN 14 Creatinine 0.98 Glucose 116 H Calcium 8.1 L Magnesium 1.7 - VTE Reasons for not Prescribing Prophylaxis: Medical contraindication Consult Discharge Plan - Plan Referrals: Jyothi Vera [Primary Care Provider] -
[2018-04-27] MEDS: Norepinephrine 4 MG in D5% in Water 250 ML IVC SCH (17:03)
[2018-04-28] MEDS: Nitroglycerin 25 MG/250 ML INFUS..BTL IVC SCH ×4 (01:14→20:08)
[2018-04-28] MEDS: Albumin 25% 25gram/100mL 25 GM/100 ML IV.SOLN IVPB SCH ×4 (01:16→23:33)
[2018-04-28] MEDS: niCARdipine 40 MG/200 ML MLS IVC SCH ×3 (01:25→20:09)
[2018-04-28] MEDS: Insulin LISPRO 300 UNITS/3 ML VIAL SQ SCH ×4 (07:54→20:09)
[2018-04-28] MEDS: Aspirin Enteric Coated 81 MG Tablet PO SCH (07:59)
[2018-04-28] MEDS: Chlorhexidine Rinse 15 ML MOUTHWASH MM SCH ×2 (07:59→20:08)
[2018-04-28] MEDS: *HR* Amiodarone 200 MG TABLET PO SCH (08:00)
[2018-04-28] MEDS: Pantoprazole 40 MG VIAL IVP SCH (08:00)
--- NOTE | 2018-04-28 08:26 | Pulmonology Progress Note ---
<Keven Murray R - Last Filed: 04/28/18 11:11> Date of Encounter: 04/28/18 Time of Encounter: 07:20 Assessment and Plan (1) Bacteremia Current Visit: Yes Status: Acute Bacteremia with initial blood cultures and catheter tip culture identifying stenotrophomonas. Patient is currently on day 6 of IV Levaquin. Infectious diseases is following and recommends a total duration of therapy of 14 days. Repeat blood cultures drawn on 04/24/2018 with negative growth to date. Vital signs remained stable, afebrile. Leukocytosis is improving. We will continue Levaquin antibiotic therapy. Patient is stable, will plan for stepdown pending CT surgery evaluation. (2) Decompensated hepatic cirrhosis Current Visit: Yes Status: Acute History of cirrhosis. Esophageal varices identified and banded 3 weeks ago. Abdominal ultrasound did identify diffuse ascites, however IR did not believe there was enough fluid present to warrant paracentesis. Patient doing well since initiation of diuresis. GI is following, appreciate their recommendations. We will continue Protonix, rifaximin, albumin, and Lasix. Patient is on nadolol 20 mg by mouth daily, may titrate as blood pressure allows. (3) HEIDY (obstructive sleep apnea) Current Visit: Yes Status: Acute Recommend outpatient pulmonary follow-up for formal polysomnography (4) Coronary artery disease Current Visit: Yes Status: Acute Patient is status post CABG with cardiothoracic surgery. Chest tubes remain in place, management per CT surgery. Qualifiers: Coronary Disease-Associated Artery/Lesion type: [place] artery [place] vs. transplanted heart: [place] heart Associated angina: with stable angina Qualified Code(s): I25.118 - Atherosclerotic heart disease of [place] coronary artery with other forms of angina pectoris (5) DVT prophylaxis Current Visit: Yes Status: Acute Patient is ambulating to his room well. We will continue mechanical prophylaxis. Subjective Principal diagnosis: Bacteremia Interval history: Patient seen and evaluated at the bedside. He reports feeling well. Ongoing swelling of the bilateral lower extremities. Patient reporting frequent urination since initiation of Lasix. Objective PUL Vital signs: Last Vital Signs Temp 98.4 F 04/28/18 03:18 Pulse 74 04/28/18 07:00 Resp 16 04/28/18 07:53 BP 102/57 04/28/18 07:00 Pulse Ox 95 04/28/18 07:53 General appearance: no acute distress Eyes: nonicteric ENT: oropharynx moist Neck: supple, no lymphadenopathy Effort: normal Auscultation: bilateral: rales (The bilateral lung bases) Cardiovascular: regular rate and rhythm, other (Chest tubes remain in place.) Gastrointestinal: normoactive bowel sounds, soft, non-distended Integumentary: normal Extremities: no cyanosis, edema (Pitting edema bilateral lower extremities), anasarca Musculoskeletal: no deformities Gait: normal posture normal mental status, non-focal exam mood appropriate Results - Laboratory Findings CBC and BMP: 04/28/18 09:00 04/28/18 09:00 ABG ABG pH 7.42 pH Units (7.32-7.45) 04/18/18 17:20 ABG pCO2 38 mmHg (35-45) 04/18/18 17:20 ABG pO2 83 mmHg (85-104) L 04/18/18 17:20 ABG O2 Saturation 96 % (95-98) 04/18/18 17:20 PT/INR, D-dimer PT 20.8 Seconds (9.4-12.1) H 04/24/18 03:43 Abnormal lab findings: Abnormal lab results RBC 2.57 M/mcL (4.19-5.50) L 04/27/18 08:00 Hgb 7.4 g/dL (12.9-16.9) L 04/27/18 08:00 Hct 23.3 % (37.5-50.1) L 04/27/18 08:00 RDW 16.2 % (11.5-14.5) H 04/27/18 08:00 Nucleated RBCs/100 WBC 0.2 /100 WBC (0) H 04/26/18 10:30 Immature Plt Fraction 7.3 % (1.1-6.1) H 04/22/18 04:55 PT 20.8 Seconds (9.4-12.1) H 04/24/18 03:43 ABG pO2 83 mmHg (85-104) L 04/18/18 17:20 ABG Hematocrit 27.0 % (37.5-50.1) L 04/15/18 12:28 Glucose 157 mg/dL (60-95) H 04/15/18 12:28 Sodium 135 mEq/L (136-145) L 04/27/18 08:00 Glucose 116 mg/dL (70-105) H 04/27/18 08:00 POC Glucose 108 mg/dL (70-99) H 04/28/18 07:50 Calcium 8.1 mg/dL (8.6-10.3) L 04/27/18 08:00 Total Bilirubin 2.0 mg/dL (0.3-1.0) H 04/22/18 04:55 Direct Bilirubin 0.8 mg/dL (0.0-0.2) H 04/22/18 04:55 Serum Total Protein 4.7 g/dL (6.4-8.9) L 04/22/18 04:55 Albumin 2.8 g/dL (3.5-5.7) L 04/22/18 04:55 Globulin 1.9 g/dL (2.4-3.5) L 04/22/18 04:55 Procalcitonin 7.04 ng/mL (<=0.07) H 04/20/18 12:00 Arterial Blood Ionized Calcium 0.90 mmol/L (1.15-1.35) L 04/15/18 12:28 - Microbiology Findings Microbiology Findings: Microbiology, Last 48 Hours 04/21/18 21:30 Catheter Tip Culture - Final Intravenous or Arterial Cath Stenotrophomonas maltophilia - Clinical Findings Intake & Output: Intake & Output 04/27/18 04/28/18 04/28/18 23:59 07:59 15:59 Intake Total 700 / 700 100 / 100 Output Total 600 / 600 50 / 50 Balance 100 / 100 50 / 50 Weight 136.8 kg - VTE Reasons for not Prescribing Prophylaxis: Medical contraindication Consult Discharge Plan - Plan Referrals: Jyothi Vera [Primary Care Provider] - <Christopher Henry - Last Filed: 04/28/18 16:16> Date of Encounter: 04/28/18 Objective PUL Vital signs: Last Vital Signs Temp 97.4 F L 04/28/18 08:00 Pulse 74 04/28/18 09:00 Resp 22 04/28/18 09:00 BP 99/64 04/28/18 09:00 Pulse Ox 94 04/28/18 09:00 Results - Laboratory Findings CBC and BMP: 04/28/18 09:00 04/28/18 09:00 ABG ABG pH 7.42 pH Units (7.32-7.45) 04/18/18 17:20 ABG pCO2 38 mmHg (35-45) 04/18/18 17:20 ABG pO2 83 mmHg (85-104) L 04/18/18 17:20 ABG O2 Saturation 96 % (95-98) 04/18/18 17:20 PT/INR, D-dimer PT 20.8 Seconds (9.4-12.1) H 04/24/18 03:43 Abnormal lab findings: Abnormal lab results RBC 2.77 M/mcL (4.19-5.50) L 04/28/18 09:00 Hgb 8.1 g/dL (12.9-16.9) L 04/28/18 09:00 Hct 25.1 % (37.5-50.1) L 04/28/18 09:00 RDW 16.5 % (11.5-14.5) H 04/28/18 09:00 Nucleated RBCs/100 WBC 0.2 /100 WBC (0) H 04/26/18 10:30 Immature Plt Fraction 7.3 % (1.1-6.1) H 04/22/18 04:55 PT 20.8 Seconds (9.4-12.1) H 04/24/18 03:43 ABG pO2 83 mmHg (85-104) L 04/18/18 17:20 ABG Hematocrit 27.0 % (37.5-50.1) L 04/15/18 12:28 Glucose 157 mg/dL (60-95) H 04/15/18 12:28 Sodium 135 mEq/L (136-145) L 04/28/18 09:00 Glucose 168 mg/dL (70-105) H 04/28/18 09:00 POC Glucose 108 mg/dL (70-99) H 04/28/18 07:50 Total Bilirubin 2.0 mg/dL (0.3-1.0) H 04/22/18 04:55 Direct Bilirubin 0.8 mg/dL (0.0-0.2) H 04/22/18 04:55 Serum Total Protein 4.7 g/dL (6.4-8.9) L 04/22/18 04:55 Albumin 2.8 g/dL (3.5-5.7) L 04/22/18 04:55 Globulin 1.9 g/dL (2.4-3.5) L 04/22/18 04:55 Procalcitonin 7.04 ng/mL (<=0.07) H 04/20/18 12:00 Arterial Blood Ionized Calcium 0.90 mmol/L (1.15-1.35) L 04/15/18 12:28 - Microbiology Findings Microbiology Findings: Microbiology, Last 48 Hours 04/21/18 21:30 Catheter Tip Culture - Final Intravenous or Arterial Cath Stenotrophomonas maltophilia - Clinical Findings Intake & Output: Intake & Output 04/27/18 04/28/18 04/28/18 23:59 07:59 15:59 Intake Total 700 / 700 100 / 100 400 / 400 Output Total 600 / 600 50 / 50 740 / 740 Balance 100 / 100 50 / 50 -340 / -340 Weight 136.8 kg - Attending Attestation I examined this patient and my medical decision-making was reviewed with the Resident Physician. I agree with the documented findings, disposition and treatment plan as described except to the extent set forth below. Patient seen and examined. Labs, radiology, chart personally reviewed. Agree with resident's history and physical, assessment, plan with following comments: ROAD REPAIRER: Patient follows commands, Pulmonary: Acceptable oxygenation and ventilation and wean off FIO2 to keep SPO2 around 90%. Chest tube per CT surgery. Discussed with Dr. Llanes and plan to take the chest tube out and monitor for recurrent watery accumulation of the pleural effusion and if needed then thoracentesis while treating underlying liver disease with beta zev and diuretics. Cardiovascular: stable and continue diuresis. GI: Nutrition per dietary and GI prophylaxis per routine Heme: DVT prophylaxis per routine. Mechanical DVT prophylaxis. ID: Continue antibiotics and plan to de-escalation. Abx per ID Renal; urine out put and renal funtion reviewed Endorcine: blood glucose is monitored Lines: all lines checked and no evidence of infections Skin: skin care to prevent pressure ulcers per nursing routine care
[2018-04-28 09:09] LABS: Basophils % 0.3 %; Eosinophils # 0.3 K/mcL (0.0-0.6); Eosinophils % 2.7 %; Hematocrit 25.1 % (37.5-50.1); Hemoglobin 8.1 g/dL (12.9-16.9); Immature Granulocytes % 0.5 % (0-4); Lymphocytes # 1.3 K/mcL (0.6-4.6); Lymphocytes % 13.9 %; Mean Corpuscular HGB Conc 32.3 g/dL (31.6-35.5); Mean Corpuscular Hemoglobin 29.2 pg (28.0-33.3); Mean Corpuscular Volume 90.6 fL (83.0-100.0); Mean Platelet Volume 10.7 fL (9.4-12.4); Monocytes # 0.6 K/mcL (0.0-1.3); Monocytes % 6.7 %; Neutrophils # 6.9 K/mcL (1.6-8.9); Platelet Count 157 K/mcL (140-400); Red Blood Count 2.77 M/mcL (4.19-5.50); Red Cell Distribution Width 16.5 % (11.5-14.5); Segmented Neutrophils % 75.9 %
[2018-04-28] MEDS: Furosemide 40 MG/4 ML VIAL IVP SCH ×2 (09:26→17:19)
[2018-04-28 09:29] LABS: BUN/Creatinine Ratio 16 (6-26); Blood Urea Nitrogen 16 mg/dL (8-23); Calcium 8.8 mg/dL (8.6-10.3); Carbon Dioxide 27 mEq/L (23-29); Chloride 102 mEq/L (98-107); Glucose 168 mg/dL (70-105); Osmolality,Calculated 285 (280-300); Potassium 3.9 mEq/L (3.5-5.1); Sodium 135 mEq/L (136-145); eGFR For Non-African Americans > 60 (> 60)
--- NOTE | 2018-04-28 09:29 | Infectious Disease Progress No ---
Date of Encounter: 04/28/18 Time of Encounter: 09:26 - Assessment and Plan (1) Sepsis Current Visit: Yes Status: Acute The patient had 4 sepsis criteria. Likely secondary to collapse seen. Improved clinically. White blood cell count has normalized. Tachycardia, tachypnea have resolved. Blood cultures drawn 04/20/18. 3 sets were positive for stenotrophomonas. Repeat blood cultures drawn 04/21/18 were also +2 out of 2 sets. Repeat blood cultures drawn 04/24/18 are NGTD 2 sets. Qualifiers: Sepsis type: sepsis due to unspecified organism Qualified Code(s): A41.9 - Sepsis, unspecified organism (2) CLABSI (central line-associated bloodstream infection) Current Visit: Yes Status: Acute Causative organism: Stenotrophomonas. Source: Likely the patient's central line, which was removed 04/21/18. Blood cultures drawn 04/20/18. 3 sets were positive for stenotrophomonas, one from CVC and two peripheral. Time to positivity for CVC was 17 hours, peripheral 23 hours. Repeat blood cultures drawn 04/21/18 were also +2 out of 2 sets (one CVC and one peripheral). Repeat blood cultures drawn 04/24/18 are NGTD 2 sets (peripheral). Catheter tip culture was positive as well. Continue Levaquin 750 mg IV daily. Duration of treatment and the clinical picture, but likely a total of 14 days from the first set of negative blood cultures. Treat through 05/07/18. Monitor renal function and dose adjust antibiotics. Qualifiers: Encounter type: initial encounter Qualified Code(s): T80.211A - Bloodstream infection due to central venous catheter, initial encounter (3) Decompensated hepatic cirrhosis Current Visit: Yes Status: Acute Likely secondary to [place]. INR 1.8. LFTs and alkaline phosphatase are within normal limits. Multiple course 21. Abdominal ultrasound revealed diffuse ascites. IR was consulted, but does not feel there is enough fluid to perform paracentesis. GI consulted. Appreciate recommendations. (4) S/P CABG x 5 Current Visit: Yes Status: Acute Status post CABG 04/15/18 (AYERS to LAD, SVG to D1, SVG to OM1, SVG to PDA). Cardiothoracic surgery continues to follow. (5) Ascites Current Visit: Yes Status: Acute Etiology not clear, but could be reactive secondary to recent surgery and infection. Clinically does not appear to have SBP. GI consulted. IR consulted, but does not feel there is enough fluid to perform a paracentesis. Qualifiers: Ascites type: other type Qualified Code(s): R18.8 - Other ascites (6) Hyperbilirubinemia Current Visit: Yes Status: Acute (7) Drug allergy, antibiotic Current Visit: Yes Status: Acute Penicillin allergy reported, but tolerated cefepime without a problem. (8) End stage liver disease Current Visit: Yes Status: Acute Secondary to [place]. MELD score 21. GI consult and following. (9) WRIGHT (nonalcoholic steatohepatitis) Current Visit: Yes Status: Acute Per patient and family. Denies history of hepatitis. (10) Esophageal varices Current Visit: Yes Status: Acute Secondary to [place] and portal hypertension. Status post banding a few weeks ago. Follows with gastroenterology in [place]. Qualifiers: Esophageal varices type: secondary Esophageal varices bleeding: without bleeding Qualified Code(s): I85.10 - Secondary esophageal varices without bleeding (11) Coronary artery disease Current Visit: Yes Status: Acute Qualifiers: Coronary Disease-Associated Artery/Lesion type: [place] artery [place] vs. transplanted heart: [place] heart Associated angina: with stable angina Qualified Code(s): I25.118 - Atherosclerotic heart disease of [place] coronary artery with other forms of angina pectoris (12) HEIDY (obstructive sleep apnea) Current Visit: Yes Status: Acute - Subjective Interval history: Patient seen and examined. No acute events noted overnight. Patient states overall he feels better today. He denies any fevers or chills or rigors. States shortness of breath is better and he is no longer coughing. He denies any pain in his chest. He does complain of discomfort in his extremities because he is so edematous. Denies nausea, vomiting or diarrhea. Reports last bowel movement this morning. Denies any urinary complaints. Denies abdominal pain. Denies any oral thrush or new skin lesions. Infect Dis PN-Objective Data - Labs CBC & Chem 7: 04/28/18 09:00 04/28/18 09:00 Labs: Laboratory Results - last 24 hr 04/27/18 04/27/18 04/27/18 11:19 15:52 19:52 WBC RBC Hgb Hct MCV MCH MCHC RDW Plt Count MPV Immature Gran % Seg Neutrophils % Lymphocytes % Monocytes % Eosinophils % Basophils % Neutrophils # Lymphocytes # Monocytes # Eosinophils # Basophils # POC Glucose 120 H 128 H 186 H 04/28/18 04/28/18 07:50 09:00 WBC 9.1 RBC 2.77 L Hgb 8.1 L Hct 25.1 L MCV 90.6 MCH 29.2 MCHC 32.3 RDW 16.5 H Plt Count 157 MPV 10.7 Immature Gran % 0.5 Seg Neutrophils % 75.9 Lymphocytes % 13.9 Monocytes % 6.7 Eosinophils % 2.7 Basophils % 0.3 Neutrophils # 6.9 Lymphocytes # 1.3 Monocytes # 0.6 Eosinophils # 0.3 Basophils # 0.0 POC Glucose 108 H Cultures: Cultures 04/21/18 21:30 Catheter Tip Culture - Final Intravenous or Arterial Cath Stenotrophomonas maltophilia 04/21/18 15:35 Blood Culture - Final Peripheral Venipuncture Stenotrophomonas maltophilia 04/24/18 16:10 Blood Culture - Preliminary Peripheral Venipuncture Culture is incubating and being continuously monitored for growth. Final report to follow. 04/24/18 16:15 Blood Culture - Preliminary Peripheral Venipuncture Culture is incubating and being continuously monitored for growth. Final report to follow. 04/21/18 16:10 Blood Culture - Final Central Venous Catheter Stenotrophomonas maltophilia 04/20/18 10:23 Blood Culture - Final Peripheral Venipuncture Stenotrophomonas maltophilia 04/20/18 10:23 Blood Culture - Final Peripheral Venipuncture Stenotrophomonas maltophilia 04/20/18 10:05 Blood Culture - Final Central Venous Catheter Stenotrophomonas maltophilia 04/20/18 10:00 Urine Culture - Final Urine,Catheterized No growth. Serology 04/21/18 04/20/18 Range/Units 16:10 10:05 A. baumannii (PCR) Not Detected Not Detected (Not Detect) Lilo albicans (PCR) Not Detected Not Detected (Not Detect) C. glabrata (PCR) Not Detected Not Detected (Not Detect) C. krusei (PCR) Not Detected Not Detected (Not Detect) C. parapsilosis (PCR) Not Detected Not Detected (Not Detect) C. tropicalis (PCR) Not Detected Not Detected (Not Detect) Enterobacteriac sp PCR Not Detected Not Detected (Not Detect) E. cloacae complex PCR Not Detected Not Detected (Not Detect) Enterococcus sp PCR Not Detected Not Detected (Not Detect) E. coli (PCR) Not Detected Not Detected (Not Detect) H. influenzae (PCR) Not Detected Not Detected (Not Detect) Klebsiella oxytoca PCR Not Detected Not Detected (Not Detect) Klebsiella pneumoniae Not Detected Not Detected (Not Detect) List. monocytogenes PCR Not Detected Not Detected (Not Detect) N. meningitidis (PCR) Not Detected Not Detected (Not Detect) Proteus species (PCR) Not Detected Not Detected (Not Detect) Serratia marcescens PCR Not Detected Not Detected (Not Detect) Staphylococcus sp PCR Not Detected Not Detected (Not Detect) Staph aureus (PCR) Not Detected Not Detected (Not Detect) mecA-Methicil Res Gene Not Detected N/A (Not Detect) Streptococcus sp PCR Not Detected Not Detected (Not Detect) Group A Strep DNA Not Detected Not Detected (Not Detect) Group B Strep (PCR) Not Detected Not Detected (Not Detect) Strep pneumoniae (PCR) Not Detected Not Detected (Not Detect) P. aeruginosa (PCR) Not Detected Not Detected (Not Detect) Alyx/B-Vanco Res Genes Not Detected N/A (Not Detect) KPC (blaKPC) Detect PCR Not Detected N/A (Not Detect) - Impressions Impressions Chest X-Ray 04/27/18 08:42 IMPRESSION: 2 left basilar chest tubes with persistent small left pleural effusion. New 14 mm left apical pneumothorax. Stable PICC line. D/ / Kb Raman MD / Kb Raman MD Interpreting Provider: Kb Raman MD Exam - Constitutional Vitals: Temp Pulse Resp BP Pulse Ox 97.4 F L 74 22 99/64 94 04/28/18 08:00 04/28/18 09:00 04/28/18 09:00 04/28/18 09:00 04/28/18 09:00 General appearance: cooperative, no acute distress, obese - Head Head exam: Present: atraumatic, normal inspection, normocephalic - Eye Eye exam: Present: EOMI, normal appearance, PERRL Pupils: Present: normal accommodation - ENT ENT exam: Present: mucous membranes moist - Neck Neck exam: Present: normal inspection - Respiratory Respiratory exam: Present: CTAB. Absent: rales, respiratory distress, rhonchi, wheezes - Cardiovascular Cardiovascular exam: Present: RRR, +S1, +S2 - GI/Abdominal GI/Abdominal exam: Present: distended, normal bowel sounds, soft. Absent: tenderness - Extremities Exam Extremities exam: Present: pedal edema (2+ BLE). Absent: tenderness - Neurological Exam Neurological exam: Present: alert, oriented X3, no focal deficits - Psychiatric Psychiatric exam: Present: normal affect, normal mood - Skin Skin exam: Present: dry, intact, normal color, warm - Additional findings Additional findings: Midsternal incision with YUKI dressing with small amount of old drainage noted. CT x2 noted with serosanguinous drainage noted. - VTE Reasons for not Prescribing Prophylaxis: Medical contraindication Consult Discharge Plan - Plan Referrals: Jyothi Vera [Primary Care Provider] - - Attending Attestation I examined this patient and my medical decision-making was reviewed with the Resident Physician. I agree with the documented findings, disposition and treatment plan as described except to the extent set forth below.
--- NOTE | 2018-04-28 10:11 | Cardiothoracic Progress Note ---
Date of Encounter: 04/28/18 Time of Encounter: 10:09 - Assessment and plan (1) Coronary artery disease Current Visit: Yes Status: Acute We will leave the chest tubes for now. We will continue with gentle diuresis. Qualifiers: Coronary Disease-Associated Artery/Lesion type: [place] artery [place] vs. transplanted heart: [place] heart Associated angina: with stable angina Qualified Code(s): I25.118 - Atherosclerotic heart disease of [place] coronary artery with other forms of angina pectoris - Subjective Interval history: The patient is tolerating his diet and has no complaints. Vital Signs, Last 4 Hours Temp Pulse Resp BP Pulse Ox 04/28/18 09:00 74 22 99/64 94 04/28/18 08:00 97.4 F L 80 20 104/81 95 04/28/18 07:53 16 95 04/28/18 07:00 74 20 102/57 93 Oxgyen Flow Rate Oxygen Flow Rate (LPM) 3 Clinical Data, last 8 Hours Output, Chest Tube Drainage 20 Amount [Mediastinal #2] Output, Chest Tube Drainage 10 Amount [Mediastinal #2] Output, Chest Tube Drainage 120 Amount [Mediastinal #1] Output, Chest Tube Drainage 40 Amount [Mediastinal #1] Output, Urine Amount 600 Weight 04/26/18 04/27/18 04/28/18 23:59 23:59 23:59 Weight 136.8 kg Lungs are clear to percussion and auscultation. Heart is in a normal sinus rhythm. All incisions are healing well without signs of infection and the sternum is stable. Chest x-ray done yesterday reveals a small left apical pneumothorax and a small left pleural effusion. - Labs 04/28/18 09:00 04/28/18 09:00 Lab Results, Last 24 hours 04/28/18 04/28/18 09:00 09:00 WBC 9.1 Hgb 8.1 L Hct 25.1 L Plt Count 157 Sodium 135 L Potassium 3.9 Chloride 102 Carbon Dioxide 27 BUN 16 Creatinine 1.00 Glucose 168 H Calcium 8.8 - VTE Reasons for not Prescribing Prophylaxis: Medical contraindication Consult Discharge Plan - Plan Referrals: Jyothi Vera [Primary Care Provider] -
[2018-04-28] MEDS: Levofloxacin 750 MG/150 ML 750 MG/150 ML BAG IVPB SCH (13:18)
[2018-04-28] MEDS: Norepinephrine 4 MG in D5% in Water 250 ML IVC SCH (16:36)
[2018-04-29] MEDS: niCARdipine 40 MG/200 ML MLS IVC SCH (01:10)
[2018-04-29] MEDS: Nitroglycerin 25 MG/250 ML INFUS..BTL IVC SCH ×2 (01:10→08:41)
[2018-04-29 03:32] LABS: Basophils % 0.4 %; Eosinophils # 0.2 K/mcL (0.0-0.6); Eosinophils % 2.7 %; Hematocrit 22.6 % (37.5-50.1); Hemoglobin 7.2 g/dL (12.9-16.9); Immature Granulocytes % 0.4 % (0-4); Lymphocytes # 1.5 K/mcL (0.6-4.6); Lymphocytes % 20.1 %; Mean Corpuscular HGB Conc 31.9 g/dL (31.6-35.5); Mean Corpuscular Hemoglobin 28.9 pg (28.0-33.3); Mean Corpuscular Volume 90.8 fL (83.0-100.0); Mean Platelet Volume 10.4 fL (9.4-12.4); Monocytes # 0.6 K/mcL (0.0-1.3); Monocytes % 8.5 %; Platelet Count 143 K/mcL (140-400); Red Blood Count 2.49 M/mcL (4.19-5.50); Red Cell Distribution Width 16.4 % (11.5-14.5); Segmented Neutrophils % 67.9 %
[2018-04-29 03:51] LABS: BUN/Creatinine Ratio 16 (6-26); Blood Urea Nitrogen 18 mg/dL (8-23); Calcium 8.5 mg/dL (8.6-10.3); Carbon Dioxide 26 mEq/L (23-29); Chloride 102 mEq/L (98-107); Glucose 108 mg/dL (70-105); Osmolality,Calculated 284 (280-300); Potassium 3.8 mEq/L (3.5-5.1); Sodium 136 mEq/L (136-145); eGFR For Non-African Americans > 60 (> 60)
[2018-04-29] MEDS: Pantoprazole 40 MG VIAL IVP SCH (08:17)
[2018-04-29] MEDS: Chlorhexidine Rinse 15 ML MOUTHWASH MM SCH ×2 (08:17→20:13)
[2018-04-29] MEDS: Albumin 25% 25gram/100mL 25 GM/100 ML IV.SOLN IVPB SCH (08:18)
[2018-04-29] MEDS: Furosemide 40 MG/4 ML VIAL IVP SCH ×2 (08:18→16:05)
[2018-04-29] MEDS: *HR* Amiodarone 200 MG TABLET PO SCH (08:20)
[2018-04-29] MEDS: Aspirin Enteric Coated 81 MG Tablet PO SCH (08:20)
[2018-04-29] MEDS: Insulin LISPRO 300 UNITS/3 ML VIAL SQ SCH ×4 (08:42→20:14)
--- NOTE | 2018-04-29 09:13 | Pulmonology Progress Note ---
<Jim Pereyra - Last Filed: 04/29/18 11:43> Date of Encounter: 04/29/18 Time of Encounter: 11:28 Assessment and Plan (1) Bacteremia Current Visit: Yes Status: Acute Patient is currently on day 7 of Levaquin of a 14 day course recommended by infectious disease. Central venous catheter, as well as peripheral vena puncture culture shows stenotrophomonas. Repeat cultures on 04/24/2018 have shown no growth to date. Patient is currently afebrile, non-tachypneic, non-tachycardic, without leukocytosis and normotensive. Plan to transfer patient to [address] [place] [address] surgery guidance (2) Decompensated hepatic cirrhosis Current Visit: Yes Status: Acute Patient is known history of hepatic cirrhosis. Esophageal varices banded 3 weeks ago. Diffuse ascites identified via abdominal ultrasonography-interventional radiology did not believe there was enough fluid to warrant paracentesis. Patient responding well to diuresis GI consulted and is following. Continue Protonix, rifaximin, albumin, and Lasix. Titrated nadolol 20 mg by mouth daily as blood pressure allows. (3) HEIDY (obstructive sleep apnea) Current Visit: Yes Status: Acute Recommend outpatient pulmonology follow-up for formal polysomnography. (4) Coronary artery disease Current Visit: Yes Status: Acute Patient is status post CABG with cardiothoracic surgery. Chest tubes removed this morning by CT surgery-recommending stepdown unit transfer to [facility]. Qualifiers: Coronary Disease-Associated Artery/Lesion type: [place] artery [place] vs. transplanted heart: [place] heart Associated angina: with stable angina Qualified Code(s): I25.118 - Atherosclerotic heart disease of [place] coronary artery with other forms of angina pectoris (5) DVT prophylaxis Current Visit: Yes Status: Acute Mechanical prophylaxis. Patient is ambulating to chair 3 times a day. OT/PT consults placed for further assistance and treatment. Subjective Principal diagnosis: Bacteremia Interval history: No acute events overnight, upon initial examination on 04/29/2018 patient was sitting upright in chair next to hospital bed. He is alert and oriented, engaged to conversation and answers questions appropriately. Mood and affect appear to be normal. Patient has a positive attitude regarding his hospital course and no new complaints at this time. Objective PUL Vital signs: Last Vital Signs Temp 98.2 F 04/29/18 08:00 Pulse 82 04/29/18 08:45 Resp 20 10/16/18 08:00 BP 105/59 04/29/18 08:00 Pulse Ox 96 04/29/18 08:00 General appearance: no acute distress, alert Eyes: nonicteric ENT: oropharynx moist Effort: normal Auscultation: bilateral: clear Cardiovascular: irregular rhythm Gastrointestinal: normoactive bowel sounds, soft, non-tender, non-distended Integumentary: normal Extremities: no cyanosis, edema (3+ pitting edema noted in bilateral lower extremities) normal mental status, non-focal exam mood appropriate, affect normal Results - Laboratory Findings CBC and BMP: 04/29/18 03:20 04/29/18 03:20 ABG ABG pH 7.42 pH Units (7.32-7.45) 04/18/18 17:20 ABG pCO2 38 mmHg (35-45) 04/18/18 17:20 ABG pO2 83 mmHg (85-104) L 04/18/18 17:20 ABG O2 Saturation 96 % (95-98) 04/18/18 17:20 PT/INR, D-dimer PT 20.8 Seconds (9.4-12.1) H 04/24/18 03:43 Abnormal lab findings: Abnormal lab results RBC 2.49 M/mcL (4.19-5.50) L 04/29/18 03:20 Hgb 7.2 g/dL (12.9-16.9) L 04/29/18 03:20 Hct 22.6 % (37.5-50.1) L 04/29/18 03:20 RDW 16.4 % (11.5-14.5) H 04/29/18 03:20 Nucleated RBCs/100 WBC 0.2 /100 WBC (0) H 04/26/18 10:30 Immature Plt Fraction 7.3 % (1.1-6.1) H 04/22/18 04:55 PT 20.8 Seconds (9.4-12.1) H 04/24/18 03:43 ABG pO2 83 mmHg (85-104) L 04/18/18 17:20 ABG Hematocrit 27.0 % (37.5-50.1) L 04/15/18 12:28 Glucose 157 mg/dL (60-95) H 04/15/18 12:28 Glucose 108 mg/dL (70-105) H 04/29/18 03:20 POC Glucose 108 mg/dL (70-99) H 04/29/18 07:42 Calcium 8.5 mg/dL (8.6-10.3) L 04/29/18 03:20 Total Bilirubin 2.0 mg/dL (0.3-1.0) H 04/22/18 04:55 Direct Bilirubin 0.8 mg/dL (0.0-0.2) H 04/22/18 04:55 Serum Total Protein 4.7 g/dL (6.4-8.9) L 04/22/18 04:55 Albumin 2.8 g/dL (3.5-5.7) L 04/22/18 04:55 Globulin 1.9 g/dL (2.4-3.5) L 04/22/18 04:55 Procalcitonin 7.04 ng/mL (<=0.07) H 04/20/18 12:00 Arterial Blood Ionized Calcium 0.90 mmol/L (1.15-1.35) L 04/15/18 12:28 - Clinical Findings Intake & Output: Intake & Output 04/28/18 04/29/18 04/29/18 23:59 07:59 15:59 Intake Total 350 / 350 100 / 100 Output Total 1455 / 1455 465 / 465 550 / 550 Balance -1105 / -1105 -365 / -365 -550 / -550 Weight 134.1 kg - VTE Reasons for not Prescribing Prophylaxis: Medical contraindication Consult Discharge Plan - Plan Referrals: Jyothi Vera [Primary Care Provider] - <Christopher Henry - Last Filed: 04/29/18 15:24> Date of Encounter: 04/29/18 Objective PUL Vital signs: Last Vital Signs Temp 97.9 F 04/29/18 12:00 Pulse 76 04/29/18 11:27 Resp 18 04/29/18 11:08 BP 101/54 04/29/18 11:00 Pulse Ox 90 04/29/18 11:08 Results - Laboratory Findings CBC and BMP: 04/29/18 03:20 04/29/18 03:20 ABG ABG pH 7.42 pH Units (7.32-7.45) 04/18/18 17:20 ABG pCO2 38 mmHg (35-45) 04/18/18 17:20 ABG pO2 83 mmHg (85-104) L 04/18/18 17:20 ABG O2 Saturation 96 % (95-98) 04/18/18 17:20 PT/INR, D-dimer PT 20.8 Seconds (9.4-12.1) H 04/24/18 03:43 Abnormal lab findings: Abnormal lab results RBC 2.49 M/mcL (4.19-5.50) L 04/29/18 03:20 Hgb 7.2 g/dL (12.9-16.9) L 04/29/18 03:20 Hct 22.6 % (37.5-50.1) L 04/29/18 03:20 RDW 16.4 % (11.5-14.5) H 04/29/18 03:20 Nucleated RBCs/100 WBC 0.2 /100 WBC (0) H 04/26/18 10:30 Immature Plt Fraction 7.3 % (1.1-6.1) H 04/22/18 04:55 PT 20.8 Seconds (9.4-12.1) H 04/24/18 03:43 ABG pO2 83 mmHg (85-104) L 04/18/18 17:20 ABG Hematocrit 27.0 % (37.5-50.1) L 04/15/18 12:28 Glucose 157 mg/dL (60-95) H 04/15/18 12:28 Glucose 108 mg/dL (70-105) H 04/29/18 03:20 POC Glucose 136 mg/dL (70-99) H 04/29/18 11:39 Calcium 8.5 mg/dL (8.6-10.3) L 04/29/18 03:20 Total Bilirubin 4.2 mg/dL (0.3-1.0) H 04/29/18 10:00 Direct Bilirubin 1.2 mg/dL (0.0-0.2) H 04/29/18 10:00 Indirect Bilirubin 3.0 mg/dL (0.0-1.2) H 04/29/18 10:00 Serum Total Protein 6.3 g/dL (6.4-8.9) L 04/29/18 10:00 Globulin 1.8 g/dL (2.4-3.5) L 04/29/18 10:00 Albumin/Globulin Ratio 2.5 (1.1-2.2) H 04/29/18 10:00 Procalcitonin 7.04 ng/mL (<=0.07) H 04/20/18 12:00 Arterial Blood Ionized Calcium 0.90 mmol/L (1.15-1.35) L 04/15/18 12:28 - Clinical Findings Intake & Output: Intake & Output 04/28/18 04/29/18 04/29/18 23:59 07:59 15:59 Intake Total 350 / 350 100 / 100 550 / 550 Output Total 1455 / 1455 465 / 465 1400 / 1400 Balance -1105 / -1105 -365 / -365 -850 / -850 Weight 134.1 kg - Attending Attestation I examined this patient and my medical decision-making was reviewed with the Resident Physician. I agree with the documented findings, disposition and treatment plan as described except to the extent set forth below. Patient seen and examined. Labs, radiology, chart personally reviewed. Agree with resident's history and physical, assessment, plan with following comments: AUDIT ANALYST: Patient follows commands, there is no evidence of hepatic encephalopathy. Pulmonary: Acceptable oxygenation and ventilation. Chest tube continue draining, however we will monitor for pleural effusion reaccumulation after removing chest tube. Cardiovascular: stable GI: Nutrition per dietary and GI prophylaxis per routine. Resume patient's home medication for liver cirrhosis. Heme: DVT prophylaxis per routine ID: Continue antibiotics and plan to de-escalation Renal; urine out put and renal funtion reviewed Endorcine: blood glucose is monitored Lines: all lines checked and no evidence of infections Skin: skin care to prevent pressure ulcers per nursing routine care Overall patient is stable and transfer out of ICU when cardiothoracic surgeon increase.
--- NOTE | 2018-04-29 09:14 | Cardiothoracic Progress Note ---
Date of Encounter: 04/29/18 Time of Encounter: 09:11 - Assessment and plan (1) Coronary artery disease Current Visit: Yes Status: Acute We will give the patient one unit of packed red blood cells for hemoglobin of 7.2. He does have the usual, expected acute postoperative blood loss anemia. We will start spironolactone to help manage his ascites. We will transfer the patient to the floor. Qualifiers: Qualified Code(s): I25.118 - Atherosclerotic heart disease of [place] coronary artery with other forms of angina pectoris - Subjective Interval history: The patient has no complaints and feels less swollen. Vital Signs, Last 4 Hours Temp Pulse Resp BP Pulse Ox 04/29/18 08:45 82 04/29/18 08:00 98.2 F 77 20 105/59 96 04/29/18 07:29 20 96 04/29/18 07:00 71 18 101/62 96 04/29/18 06:00 75 20 112/59 96 Oxgyen Flow Rate Oxygen Flow Rate (LPM) 2 Clinical Data, last 8 Hours Output, Chest Tube Drainage 0 Amount [Mediastinal #2] Output, Chest Tube Drainage 0 Amount [Mediastinal #1] Output, Chest Tube Drainage 100 Amount [Mediastinal #1] Weight 04/27/18 04/28/18 04/29/18 23:59 23:59 23:59 Weight 136.8 kg 134.1 kg Lungs are clear to percussion and auscultation. Heart is in an atrial fibrillation with a controlled ventricular rate. All incisions are healing well without signs of infection and the sternum is stable. Chest x-ray reveals no pneumothorax and no significant other findings. The chest tubes and pacing wires were removed. - Labs 04/29/18 03:20 04/29/18 03:20 Lab Results, Last 24 hours 04/28/18 04/29/18 04/29/18 09:00 03:20 03:20 WBC 7.4 Hgb 7.2 L Hct 22.6 L Plt Count 143 Sodium 135 L 136 Potassium 3.9 3.8 Chloride 102 102 Carbon Dioxide 27 26 BUN 16 18 Creatinine 1.00 1.13 Glucose 168 H 108 H Calcium 8.8 8.5 L - VTE Reasons for not Prescribing Prophylaxis: Medical contraindication Consult Discharge Plan - Plan Referrals: Jyothi Vera [Primary Care Provider] -
[2018-04-29] MEDS ORDERED: Spironolactone 25 MG TABLET PO SCH (09:15)
--- NOTE | 2018-04-29 10:05 | Infectious Disease Progress No ---
Date of Encounter: 04/29/18 Time of Encounter: 10:03 - Assessment and Plan (1) Sepsis Current Visit: Yes Status: Acute The patient had 4 sepsis criteria. Likely secondary to collapse seen. Improved clinically. White blood cell count has normalized. Tachycardia, tachypnea have resolved. Blood cultures drawn 04/20/18. 3 sets were positive for stenotrophomonas. Repeat blood cultures drawn 04/21/18 were also +2 out of 2 sets. Repeat blood cultures drawn 04/24/18 are negative 2 sets. Qualifiers: Sepsis type: sepsis due to unspecified organism Qualified Code(s): A41.9 - Sepsis, unspecified organism (2) CLABSI (central line-associated bloodstream infection) Current Visit: Yes Status: Acute Causative organism: Stenotrophomonas. Source: Likely the patient's central line, which was removed 04/21/18. Blood cultures drawn 04/20/18. 3 sets were positive for stenotrophomonas, one from CVC and two peripheral. Time to positivity for CVC was 17 hours, peripheral 23 hours. Repeat blood cultures drawn 04/21/18 were also +2 out of 2 sets (one CVC and one peripheral). Repeat blood cultures drawn 04/24/18 are NGTD 2 sets (peripheral). Catheter tip culture was positive as well. Continue Levaquin 750 mg IV daily. Duration of treatment and the clinical picture, but likely a total of 14 days from the first set of negative blood cultures. Okay to switch to PO Levaquin when ready for discharge. Treat through 05/07/18. Monitor renal function and dose adjust antibiotics. No further recommendations from the ID team. We will sign off. Please re- consult if needed. Qualifiers: Encounter type: initial encounter Qualified Code(s): T80.211A - Bloodstream infection due to central venous catheter, initial encounter (3) Decompensated hepatic cirrhosis Current Visit: Yes Status: Acute Likely secondary to [place]. INR 1.8. LFTs and alkaline phosphatase are within normal limits. MELD score 21. Abdominal ultrasound revealed diffuse ascites. IR was consulted, but does not feel there is enough fluid to perform paracentesis. GI consulted. Appreciate recommendations. (4) S/P CABG x 5 Current Visit: Yes Status: Acute Status post CABG 04/15/18 (AYERS to LAD, SVG to D1, SVG to OM1, SVG to PDA). Cardiothoracic surgery continues to follow. (5) Ascites Current Visit: Yes Status: Acute Etiology not clear, but could be reactive secondary to recent surgery and infection. Clinically does not appear to have SBP. GI consulted. IR consulted, but does not feel there is enough fluid to perform a paracentesis. Qualifiers: Ascites type: other type Qualified Code(s): R18.8 - Other ascites (6) Hyperbilirubinemia Current Visit: Yes Status: Acute (7) Drug allergy, antibiotic Current Visit: Yes Status: Acute Penicillin allergy reported, but tolerated cefepime without a problem. (8) End stage liver disease Current Visit: Yes Status: Acute Secondary to [place]. MELD score 21. GI consult and following. (9) WRIGHT (nonalcoholic steatohepatitis) Current Visit: Yes Status: Acute Per patient and family. Denies history of hepatitis. (10) Esophageal varices Current Visit: Yes Status: Acute Secondary to [place] and portal hypertension. Status post banding a few weeks ago. Follows with gastroenterology in [place]. Qualifiers: Esophageal varices type: secondary Esophageal varices bleeding: without bleeding Qualified Code(s): I85.10 - Secondary esophageal varices without bleeding (11) Coronary artery disease Current Visit: Yes Status: Acute Qualifiers: Coronary Disease-Associated Artery/Lesion type: [place] artery [place] vs. transplanted heart: [place] heart Associated angina: with stable angina Qualified Code(s): I25.118 - Atherosclerotic heart disease of [place] coronary artery with other forms of angina pectoris (12) HEIDY (obstructive sleep apnea) Current Visit: Yes Status: Acute - Subjective Interval history: Patient seen and examined. No acute events noted overnight. Patient states overall he feels better today. He denies any fevers or chills or rigors. States shortness of breath is better and he is no longer coughing. He denies any pain in his chest. He does complain of discomfort in his extremities because he is so edematous. Denies nausea, vomiting or diarrhea. Reports last bowel movement yesterday, but feels like he is going to have another one soon. Denies any urinary complaints. Denies abdominal pain. Denies any oral thrush or new skin lesions. Chest tubes removed this morning. Infect Dis PN-Objective Data - Labs CBC & Chem 7: 04/29/18 03:20 04/29/18 03:20 Labs: Laboratory Results - last 24 hr 04/28/18 04/28/18 04/28/18 11:39 15:37 19:57 WBC RBC Hgb Hct MCV MCH MCHC RDW Plt Count MPV Immature Gran % Seg Neutrophils % Lymphocytes % Monocytes % Eosinophils % Basophils % Neutrophils # Lymphocytes # Monocytes # Eosinophils # Basophils # Sodium Potassium Chloride Carbon Dioxide BUN Creatinine Est GFR ( Amer) Est GFR (Non-Af Amer) BUN/Creatinine Ratio Glucose POC Glucose 152 H 124 H 138 H Calculated Osmolality Calcium 04/29/18 04/29/18 04/29/18 03:20 03:20 07:42 WBC 7.4 RBC 2.49 L Hgb 7.2 L Hct 22.6 L MCV 90.8 MCH 28.9 MCHC 31.9 RDW 16.4 H Plt Count 143 MPV 10.4 Immature Gran % 0.4 Seg Neutrophils % 67.9 Lymphocytes % 20.1 Monocytes % 8.5 Eosinophils % 2.7 Basophils % 0.4 Neutrophils # 5.0 Lymphocytes # 1.5 Monocytes # 0.6 Eosinophils # 0.2 Basophils # 0.0 Sodium 136 Potassium 3.8 Chloride 102 Carbon Dioxide 26 BUN 18 Creatinine 1.13 Est GFR ( Amer) > 60 Est GFR (Non-Af Amer) > 60 BUN/Creatinine Ratio 16 Glucose 108 H POC Glucose 108 H Calculated Osmolality 284 Calcium 8.5 L Cultures: Cultures 04/21/18 21:30 Catheter Tip Culture - Final Intravenous or Arterial Cath Stenotrophomonas maltophilia 04/21/18 15:35 Blood Culture - Final Peripheral Venipuncture Stenotrophomonas maltophilia 04/24/18 16:10 Blood Culture - Preliminary Peripheral Venipuncture Culture is incubating and being continuously monitored for growth. Final report to follow. 04/24/18 16:15 Blood Culture - Preliminary Peripheral Venipuncture Culture is incubating and being continuously monitored for growth. Final report to follow. 04/21/18 16:10 Blood Culture - Final Central Venous Catheter Stenotrophomonas maltophilia 04/20/18 10:23 Blood Culture - Final Peripheral Venipuncture Stenotrophomonas maltophilia 04/20/18 10:23 Blood Culture - Final Peripheral Venipuncture Stenotrophomonas maltophilia 04/20/18 10:05 Blood Culture - Final Central Venous Catheter Stenotrophomonas maltophilia 04/20/18 10:00 Urine Culture - Final Urine,Catheterized No growth. Serology 04/21/18 04/20/18 Range/Units 16:10 10:05 A. baumannii (PCR) Not Detected Not Detected (Not Detect) Lilo albicans (PCR) Not Detected Not Detected (Not Detect) C. glabrata (PCR) Not Detected Not Detected (Not Detect) C. krusei (PCR) Not Detected Not Detected (Not Detect) C. parapsilosis (PCR) Not Detected Not Detected (Not Detect) C. tropicalis (PCR) Not Detected Not Detected (Not Detect) Enterobacteriac sp PCR Not Detected Not Detected (Not Detect) E. cloacae complex PCR Not Detected Not Detected (Not Detect) Enterococcus sp PCR Not Detected Not Detected (Not Detect) E. coli (PCR) Not Detected Not Detected (Not Detect) H. influenzae (PCR) Not Detected Not Detected (Not Detect) Klebsiella oxytoca PCR Not Detected Not Detected (Not Detect) Klebsiella pneumoniae Not Detected Not Detected (Not Detect) List. monocytogenes PCR Not Detected Not Detected (Not Detect) N. meningitidis (PCR) Not Detected Not Detected (Not Detect) Proteus species (PCR) Not Detected Not Detected (Not Detect) Serratia marcescens PCR Not Detected Not Detected (Not Detect) Staphylococcus sp PCR Not Detected Not Detected (Not Detect) Staph aureus (PCR) Not Detected Not Detected (Not Detect) mecA-Methicil Res Gene Not Detected N/A (Not Detect) Streptococcus sp PCR Not Detected Not Detected (Not Detect) Group A Strep DNA Not Detected Not Detected (Not Detect) Group B Strep (PCR) Not Detected Not Detected (Not Detect) Strep pneumoniae (PCR) Not Detected Not Detected (Not Detect) P. aeruginosa (PCR) Not Detected Not Detected (Not Detect) Alyx/B-Vanco Res Genes Not Detected N/A (Not Detect) KPC (blaKPC) Detect PCR Not Detected N/A (Not Detect) - Impressions Impressions Chest X-Ray 04/29/18 00:01 IMPRESSION: Resolution of left-sided pneumothorax. D/ / Tyler De La Torre MD / Tyler De La Torre MD Interpreting Provider: Tyler De La Torre MD Exam - Constitutional Vitals: Temp Pulse Resp BP Pulse Ox 98.2 F 82 20 105/59 96 04/29/18 08:00 04/29/18 08:45 04/29/18 08:00 04/29/18 08:00 04/29/18 08:00 General appearance: cooperative, morbidly obese, no acute distress - Head Head exam: Present: atraumatic, normal inspection, normocephalic - Eye Eye exam: Present: EOMI, normal appearance, PERRL Pupils: Present: normal accommodation - ENT ENT exam: Present: mucous membranes moist - Neck Neck exam: Present: normal inspection - Respiratory Respiratory exam: Present: CTAB. Absent: rales, respiratory distress, rhonchi, wheezes - Cardiovascular Cardiovascular exam: Present: irregular rhythm. Absent: tachycardia Additional comments: Midsternal YUKI dressing noted with small amount of old bloody drainage noted. Mediastinal chest tube sites with dressing C/D/I. - GI/Abdominal GI/Abdominal exam: Present: distended (obese), normal bowel sounds, soft. Absent: tenderness - Extremities Exam Extremities exam: Present: pedal edema (2+ BLE). Absent: joint swelling, tenderness - Neurological Exam Neurological exam: Present: alert, oriented X3, no focal deficits - Psychiatric Psychiatric exam: Present: normal affect, normal mood - Skin Skin exam: Present: dry, intact, normal color, warm - VTE Reasons for not Prescribing Prophylaxis: Medical contraindication Consult Discharge Plan - Plan Referrals: Jyothi Vera [Primary Care Provider] - - Attending Attestation I examined this patient and my medical decision-making was reviewed with the Resident Physician. I agree with the documented findings, disposition and treatment plan as described except to the extent set forth below.
[2018-04-29] MEDS ORDERED: Insulin Regular, Human 100 UNIT/ML IV PRN (10:17)
[2018-04-29] MEDS ORDERED: *HR* Dextrose 50 % in Water (Syg) 50 ML SYRINGE IVP PRN (10:17)
[2018-04-29] MEDS ORDERED: Naloxone 0.4 MG/ML INJ IVP PRN (10:17)
[2018-04-29] MEDS ORDERED: Ondansetron 4 MG/2 ML VIAL IVP PRN (10:17)
[2018-04-29] MEDS ORDERED: Dextrose Gel 15 GM/37.5 ML TUBE PO PRN ×2 (10:17)
[2018-04-29] MEDS ORDERED: D5% in Water 1,000 ML IVC PRN (10:17)
[2018-04-29 10:38] LABS: Albumin 4.5 g/dL (3.5-5.7); Albumin/Globulin Ratio 2.5 (1.1-2.2); Bilirubin,Direct 1.2 mg/dL (0.0-0.2); Bilirubin,Total 4.2 mg/dL (0.3-1.0); Globulin 1.8 g/dL (2.4-3.5); Total Protein 6.3 g/dL (6.4-8.9)
[2018-04-29] MEDS: Levofloxacin 750 MG/150 ML 750 MG/150 ML BAG IVPB SCH (16:06)
[2018-04-29] MEDS ORDERED: 0.9 % Sodium Chloride 250 ML ONE (18:28)
[2018-04-30 06:22] LABS: INR 1.7; Prothrombin Time 18.7 Seconds (9.4-12.1)
[2018-04-30 06:24] LABS: Activated Partial Thrombo Time 27.9 Seconds (26.0-36.0)
[2018-04-30 06:35] LABS: BUN/Creatinine Ratio 16 (6-26); Blood Urea Nitrogen 17 mg/dL (8-23); Calcium 8.9 mg/dL (8.6-10.3); Carbon Dioxide 26 mEq/L (23-29); Chloride 102 mEq/L (98-107); Glucose 113 mg/dL (70-105); Osmolality,Calculated 288 (280-300); Potassium 3.9 mEq/L (3.5-5.1); Sodium 138 mEq/L (136-145); eGFR For Non-African Americans > 60 (> 60)
--- NOTE | 2018-04-30 07:41 | Cardiothoracic Progress Note ---
Date of Encounter: 04/30/18 Time of Encounter: 07:38 - Assessment and plan (1) Coronary artery disease Current Visit: Yes Status: Acute We will not start the patient on anticoagulation for his atrial fibrillation as his prothrombin time is already prolonged because of his liver disease. The patient is tolerating his diet and continues to improve. Qualifiers: Coronary Disease-Associated Artery/Lesion type: [place] artery [place] vs. transplanted heart: [place] heart Associated angina: with stable angina Qualified Code(s): I25.118 - Atherosclerotic heart disease of [place] coronary artery with other forms of angina pectoris - Subjective Interval history: The patient is tolerating his diet and has no complaints. Vital Signs, Last 4 Hours Temp Pulse Resp BP Pulse Ox 04/30/18 06:58 98.5 F 80 16 115/60 92 04/30/18 04:20 80 04/30/18 04:15 98.6 F 80 15 125/69 93 Oxgyen Flow Rate Oxygen Flow Rate (LPM) 2 Clinical Data, last 8 Hours Output, Urine Amount 200 Weight 04/28/18 04/29/18 04/30/18 23:59 23:59 23:59 Weight 134.1 kg Lungs are clear to percussion and auscultation. Heart is in an atrial fibrillation with a controlled ventricular rate. All incisions are healing well without signs of infection and the sternum is stable. Chest x-ray reveals a small left pleural effusion and a tiny left apical pneumothorax. - Labs 04/29/18 03:20 04/30/18 05:55 Lab Results, Last 24 hours 04/29/18 04/30/18 04/30/18 10:00 05:55 05:55 INR 1.7 APTT 27.9 Sodium 138 Potassium 3.9 Chloride 102 Carbon Dioxide 26 BUN 17 Creatinine 1.04 Glucose 113 H Calcium 8.9 Total Bilirubin 4.2 H AST 20 ALT 11 Alkaline Phosphatase 45 - VTE Reasons for not Prescribing Prophylaxis: Medical contraindication Consult Discharge Plan - Plan Referrals: Jyothi Vera [Primary Care Provider] -
[2018-04-30] MEDS: Insulin LISPRO 300 UNITS/3 ML VIAL SQ SCH ×4 (07:52→20:55)
[2018-04-30] MEDS: *HR* Amiodarone 200 MG TABLET PO SCH (08:51)
[2018-04-30] MEDS: Chlorhexidine Rinse 15 ML MOUTHWASH MM SCH ×2 (08:51→20:55)
[2018-04-30] MEDS: Aspirin Enteric Coated 81 MG Tablet PO SCH (08:51)
[2018-04-30] MEDS: Furosemide 40 MG/4 ML VIAL IVP SCH ×2 (08:51→16:28)
[2018-04-30] MEDS ORDERED: Spironolactone 25 MG TABLET PO SCH (09:00)
[2018-04-30] MEDS ORDERED: Pantoprazole 40 MG VIAL IVP SCH (09:00)
[2018-04-30 09:11] LABS: Basophils # 0.1 K/mcL (0.0-0.2); Basophils % 0.5 %; Eosinophils # 0.3 K/mcL (0.0-0.6); Eosinophils % 2.7 %; Hematocrit 29.4 % (37.5-50.1); Hemoglobin 9.5 g/dL (12.9-16.9); Immature Granulocytes % 0.5 % (0-4); Lymphocytes # 1.2 K/mcL (0.6-4.6); Lymphocytes % 11.9 %; Mean Corpuscular HGB Conc 32.3 g/dL (31.6-35.5); Mean Corpuscular Hemoglobin 29.1 pg (28.0-33.3); Mean Corpuscular Volume 90.2 fL (83.0-100.0); Mean Platelet Volume 10.1 fL (9.4-12.4); Monocytes # 0.8 K/mcL (0.0-1.3); Monocytes % 7.8 %; Neutrophils # 7.6 K/mcL (1.6-8.9); Platelet Count 202 K/mcL (140-400); Red Blood Count 3.26 M/mcL (4.19-5.50); Segmented Neutrophils % 76.6 %
--- NOTE | 2018-04-30 10:43 | Gastroenterology Progress Note ---
<Stephenie Jimenez - Last Filed: 04/30/18 15:01> Date of Encounter: 04/30/18 Time of Encounter: 10:39 - Assessment and plan (1) Decompensated hepatic cirrhosis Current Visit: Yes Status: Acute Assessment and plan: Patient has history of nonalcoholic steatohepatitis with cirrhosis and esophageal varices that have been banded. His gastroenterologists is in [place]. WBC WNL, HGB 9.5 stable PT 18.7, INR 1.7 LFTs, alkaline phosphatase WNL albumin 4.5 MELD score 18 IR-attempted paracentesis after abdominal ultrasound demonstrated diffuse ascites however, there was not enough fluid to perform the tap. Examination today demonstrated nontender, distended, bowel sounds present. No jaundice or scleral icterus. No clinical indication of SBP. plan: -the patient is not in acute liver failure. His MELD score is elevated secondary to the surgery. His albumin is normal and transaminases are normal. -will increase aldactone to 50mg BID, continue dose upon discharge. Continue the lasix, rifamixin, nadolol. -recommend follow LFTs closely. -plan was discussed with patient and at the bedside. 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 They stated clear understanding. (2) Coronary artery disease Current Visit: Yes Status: Acute Assessment and plan: status post CABG4 and modified Maze procedure -management per cardiology and primary team Qualifiers: Coronary Disease-Associated Artery/Lesion type: [place] artery [place] vs. transplanted heart: [place] heart Associated angina: with stable angina Qualified Code(s): I25.118 - Atherosclerotic heart disease of [place] coronary artery with other forms of angina pectoris (3) RAZA (nonalcoholic steatohepatitis) Current Visit: Yes Status: Acute Assessment and plan: Known history of nonalcoholic steatohepatitis. - Time Spent With Patient Total time spent is greater than 50% in coordination of care (as documented) at patient's floor/unit and/or counseling patient: - Subjective Interval history: Patient was seen and examined at bedside. He is alert and oriented times 3 in no acute distress. He reported that he was feeling well. He denied fever, chills, abdominal pain, nausea, vomiting, headache, melena, hematochezia, confusion. He has no complaints at this time. - Constitutional Vitals: Temp Pulse Resp BP Pulse Ox 98.5 F 80 16 115/60 94 04/30/18 06:58 04/30/18 06:58 04/30/18 07:56 04/30/18 06:58 04/30/18 07:56 Exam: Gen.: Vitals noted. No acute distress. AAOx3 HEENT: oropharynx clear, Normocephalic, atraumatic, no jaundice or scleral icterus Neck: Supple. No adenopathy. Cardiac: irregular, no murmur, +S1/S2 Pulmonary: CTA bilaterally, no wheezes, rales or rhonchi, equal chest expansion Abdomen: soft, nontender, Bowel sounds noted, no guarding, distended MSK: ROM intact, no joint swelling noted Extremities: +1BLE edema, nontender calf, no cyanosis or clubbing Neuro: A&Ox3, moves all extremities, no focal deficits Psych: Appropriate mood and behavior Results - Labs CBC & Chem 7: 04/30/18 08:55 04/30/18 05:55 Labs: Last Result Calcium 8.9 mg/dL (8.6-10.3) 04/30/18 05:55 Entire Visit Hgb 9.5 g/dL (12.9-16.9) L D 04/30/18 08:55 Hct 29.4 % (37.5-50.1) L 04/30/18 08:55 PT 18.7 Seconds (9.4-12.1) H 04/30/18 05:55 Total Bilirubin 4.2 mg/dL (0.3-1.0) H 04/29/18 10:00 AST 20 Units/L (13-39) 04/29/18 10:00 ALT 11 Units/L (7-52) 04/29/18 10:00 E. coli (PCR) Not Detected (Not Detect) 04/21/18 16:10 - ABG ABG results: ABG ABG pH 7.42 pH Units (7.32-7.45) 04/18/18 17:20 ABG pCO2 38 mmHg (35-45) 04/18/18 17:20 ABG pO2 83 mmHg (85-104) L 04/18/18 17:20 ABG O2 Saturation 96 % (95-98) 04/18/18 17:20 PT/INR, D-dimer PT 18.7 Seconds (9.4-12.1) H 04/30/18 05:55 - Impressions Impressions Chest X-Ray 04/30/18 05:00 IMPRESSION: Trace left apical pneumothorax is new since previous examination on 04/29/2018. This was present on 04/27/2018. Findings suggestive of mild interstitial pulmonary edema. Interval increase in left pleural effusion. Recommend radiographic follow-up to resolution. The findings were sent to the Radiology Results Communication Center at 5:08 am on 04/30/2018to be communicated to a licensed caregiver. D/ / 04/30/2018 07:11:25 Alec Silva MD / ion Interpreting Provider: Alec Silva MD - VTE Reasons for not Prescribing Prophylaxis: Medical contraindication Consult Discharge Plan - Plan Referrals: Ev Flores MD [Partnered Physician] - 05/29/18 2:50 pm Forrest Foster DO [Partnered Physician] - 05/12/18 9:30 am Jyothi Vera [Primary Care Provider] - 05/09/18 9:00 am <Jennyfer Yan - Last Filed: 04/30/18 17:41> Date of Encounter: 04/30/18 Time of Encounter: 15:00 - Time Spent With Patient Total time spent is greater than 50% in coordination of care (as documented) at patient's floor/unit and/or counseling patient: - Constitutional Vitals: Temp Pulse Resp BP Pulse Ox 98.2 F 95 16 118/87 93 04/30/18 15:25 04/30/18 15:25 04/30/18 15:35 04/30/18 15:25 04/30/18 15:35 Results - Labs CBC & Chem 7: 04/30/18 08:55 04/30/18 05:55 Labs: Last Result Calcium 8.9 mg/dL (8.6-10.3) 04/30/18 05:55 Entire Visit Hgb 9.5 g/dL (12.9-16.9) L D 04/30/18 08:55 Hct 29.4 % (37.5-50.1) L 04/30/18 08:55 PT 18.7 Seconds (9.4-12.1) H 04/30/18 05:55 Total Bilirubin 4.2 mg/dL (0.3-1.0) H 04/29/18 10:00 AST 20 Units/L (13-39) 04/29/18 10:00 ALT 11 Units/L (7-52) 04/29/18 10:00 E. coli (PCR) Not Detected (Not Detect) 04/21/18 16:10 - ABG ABG results: ABG ABG pH 7.42 pH Units (7.32-7.45) 04/18/18 17:20 ABG pCO2 38 mmHg (35-45) 04/18/18 17:20 ABG pO2 83 mmHg (85-104) L 04/18/18 17:20 ABG O2 Saturation 96 % (95-98) 04/18/18 17:20 PT/INR, D-dimer PT 18.7 Seconds (9.4-12.1) H 04/30/18 05:55 - Impressions Impressions Chest X-Ray 04/30/18 05:00 IMPRESSION: 1. Trace left apical pneumothorax is new since previous examination on 04/29/2018. However, this was present on 04/27/2018. 2. Findings suggestive of mild interstitial pulmonary edema. Interval increase in left pleural effusion. Recommend radiographic follow-up to resolution. The findings were sent to the Radiology Results Communication Center at 5:08 am on 04/30/2018to be communicated to a licensed caregiver. D/ / 04/30/2018 07:11:25 Alec Silva MD / ion Interpreting Provider: Alec Silva MD - Attending Attestation I have personally performed a face to face evaluation on this patient. I have reviewed and agree with the care plan. History and Exam by me shows: Patient seen at the bedside no active issues. Examination: Sitting in the chair , does have elastic stocking in place. Assessment: Patient with cirrhosis status post CABG. did somers elevation in his meld score but is gradually improving. Rec: Follow LFTs. Increase Aldactone to 50 mg twice a day
[2018-04-30] MEDS: Levofloxacin 750 MG/150 ML 750 MG/150 ML BAG IVPB SCH (14:32)
[2018-05-01 00:13] LABS: Basophils % 0.4 %; Eosinophils # 0.2 K/mcL (0.0-0.6); Eosinophils % 1.6 %; Hematocrit 28.1 % (37.5-50.1); Hemoglobin 9.1 g/dL (12.9-16.9); Immature Granulocytes % 0.4 % (0-4); Lymphocytes # 1.6 K/mcL (0.6-4.6); Lymphocytes % 14.2 %; Mean Corpuscular HGB Conc 32.4 g/dL (31.6-35.5); Mean Corpuscular Volume 89.5 fL (83.0-100.0); Mean Platelet Volume 10.4 fL (9.4-12.4); Neutrophils # 8.4 K/mcL (1.6-8.9); Platelet Count 186 K/mcL (140-400); Red Blood Count 3.14 M/mcL (4.19-5.50); Red Cell Distribution Width 16.3 % (11.5-14.5); Segmented Neutrophils % 74.4 %
[2018-05-01 00:15] LABS: BUN/Creatinine Ratio 14 (6-26); Blood Urea Nitrogen 15 mg/dL (8-23); Calcium 8.4 mg/dL (8.6-10.3); Carbon Dioxide 27 mEq/L (23-29); Chloride 100 mEq/L (98-107); Glucose 113 mg/dL (70-105); Osmolality,Calculated 280 (280-300); Potassium 3.8 mEq/L (3.5-5.1); Sodium 134 mEq/L (136-145); eGFR For Non-African Americans > 60 (> 60)
[2018-05-01] MEDS ORDERED: MOM Conc 10 ML UD.LIQ PO PRN (11:51)
[2018-05-01] MEDS: Furosemide 40 MG/4 ML VIAL IVP SCH ×2 (12:41→16:55)
[2018-05-01] MEDS: Chlorhexidine Rinse 15 ML MOUTHWASH MM SCH ×2 (12:41→20:17)
[2018-05-01] MEDS: Insulin LISPRO 300 UNITS/3 ML VIAL SQ SCH ×4 (12:41→21:57)
[2018-05-01] MEDS: Aspirin Enteric Coated 81 MG Tablet PO SCH (12:41)
[2018-05-01] MEDS: *HR* Amiodarone 200 MG TABLET PO SCH (12:42)
[2018-05-01] MEDS: Levofloxacin 750 MG/150 ML 750 MG/150 ML BAG IVPB SCH (14:00)
[2018-05-01] MEDS ORDERED: Chlorhexidine Rinse 15 ML MOUTHWASH PO ONE (14:30)
[2018-05-01] MEDS ORDERED: Insulin LISPRO 300 UNITS/3 ML VIAL SQ ONE (14:30)
[2018-05-01] MEDS ORDERED: Furosemide 40 MG/4 ML VIAL IV ONE (14:30)
[2018-05-01] MEDS ORDERED: *HR* Amiodarone 200 MG TABLET PO ONE (14:30)
[2018-05-01] MEDS ORDERED: Aspirin Enteric Coated 81 MG Tablet PO ONE (14:30)
[2018-05-02 03:29] LABS: Basophils # 0.1 K/mcL (0.0-0.2); Basophils % 0.6 %; Eosinophils # 0.2 K/mcL (0.0-0.6); Eosinophils % 1.3 %; Hemoglobin 9.4 g/dL (12.9-16.9); Immature Granulocytes % 0.4 % (0-4); Lymphocytes # 1.9 K/mcL (0.6-4.6); Lymphocytes % 15.5 %; Mean Corpuscular HGB Conc 32.4 g/dL (31.6-35.5); Mean Corpuscular Hemoglobin 28.9 pg (28.0-33.3); Mean Corpuscular Volume 89.2 fL (83.0-100.0); Mean Platelet Volume 10.2 fL (9.4-12.4); Monocytes # 1.3 K/mcL (0.0-1.3); Monocytes % 10.3 %; Platelet Count 239 K/mcL (140-400); Red Blood Count 3.25 M/mcL (4.19-5.50); Red Cell Distribution Width 16.1 % (11.5-14.5); Segmented Neutrophils % 71.9 %
[2018-05-02 03:41] LABS: BUN/Creatinine Ratio 15 (6-26); Blood Urea Nitrogen 18 mg/dL (8-23); Calcium 8.9 mg/dL (8.6-10.3); Carbon Dioxide 28 mEq/L (23-29); Chloride 100 mEq/L (98-107); Glucose 122 mg/dL (70-105); Osmolality,Calculated 283 (280-300); Sodium 135 mEq/L (136-145); eGFR For Non-African Americans > 60 (> 60)
--- NOTE | 2018-05-02 07:51 | Cardiothoracic Progress Note ---
Date of Encounter: 05/02/18 Time of Encounter: 07:49 - Assessment and plan (1) Coronary artery disease Current Visit: Yes Status: Acute The patient is to have ultrasound-guided thoracentesis and possible paracentesis today in interventional radiology. I will order MiraLAX for constipation. Qualifiers: Coronary Disease-Associated Artery/Lesion type: [place] artery [place] vs. transplanted heart: [place] heart Associated angina: with stable angina Qualified Code(s): I25.118 - Atherosclerotic heart disease of [place] coronary artery with other forms of angina pectoris - Subjective Interval history: The patient continues to complain of constipation. Vital Signs, Last 4 Hours Temp Pulse Resp BP Pulse Ox 05/02/18 07:42 97.9 F 91 20 107/67 90 Oxgyen Flow Rate Oxygen Flow Rate (LPM) 2 Clinical Data, last 8 Hours Output, Urine Amount 425 Weight 04/30/18 05/01/18 05/02/18 23:59 23:59 23:59 Weight 134.9 kg Lungs are clear to percussion and auscultation. Heart is in an atrial fibrillation with a controlled ventricular rate. All incisions are healing well without signs of infection and the sternum is stable. - Labs 05/02/18 03:10 05/02/18 03:10 Lab Results, Last 24 hours 05/02/18 05/02/18 03:10 03:10 WBC 12.5 H Hgb 9.4 L Hct 29.0 L Plt Count 239 Sodium 135 L Potassium 4.0 Chloride 100 Carbon Dioxide 28 BUN 18 Creatinine 1.18 Glucose 122 H Calcium 8.9 - VTE Reasons for not Prescribing Prophylaxis: Medical contraindication Consult Discharge Plan - Plan Referrals: Ev Flores MD [Partnered Physician] - 05/29/18 2:50 pm Forrest Foster DO [Partnered Physician] - 05/12/18 9:30 am Jyothi Vera [Primary Care Provider] - 05/09/18 9:00 am
[2018-05-02] MEDS: Insulin LISPRO 300 UNITS/3 ML VIAL SQ SCH ×4 (08:42→20:40)
[2018-05-02] MEDS: *HR* Amiodarone 200 MG TABLET PO SCH (08:43)
[2018-05-02] MEDS: Chlorhexidine Rinse 15 ML MOUTHWASH MM SCH ×2 (08:43→20:39)
[2018-05-02] MEDS: Aspirin Enteric Coated 81 MG Tablet PO SCH (08:44)
[2018-05-02] MEDS: Furosemide 40 MG/4 ML VIAL IVP SCH ×2 (10:48→16:55)
--- NOTE | 2018-05-02 11:19 | IR Procedure Note ---
Date of procedure: 05/02/18 Consent Obtained: Written consent Timeout: Correct patient and procedure verified, Correct site verified, Time out performed, Skin prep completed Local anesthetic: Lidocaine 1% Indications: left effusion Procedure Performed: left thoracentesis Was there an metallurgical laboratory assistant present: No Site/Technique: left, 8F sheath Results/Findings: 2 liters Estimated blood loss (cc): 0 Complications: None; Tolerated procedure well Post Procedure Treatment Plan: CXR Specimen: 2 liters of pleural fluid
[2018-05-02] MEDS: Bisacodyl 10 MG RECTAL SUPPOSITORY RC PRN (13:34)
[2018-05-02] MEDS: Levofloxacin 750 MG/150 ML 750 MG/150 ML BAG IVPB SCH (14:59)
[2018-05-03 02:27] LABS: BUN/Creatinine Ratio 17 (6-26); Blood Urea Nitrogen 20 mg/dL (8-23); Calcium 8.2 mg/dL (8.6-10.3); Carbon Dioxide 29 mEq/L (23-29); Chloride 99 mEq/L (98-107); Glucose 94 mg/dL (70-105); Osmolality,Calculated 284 (280-300); Potassium 3.7 mEq/L (3.5-5.1); Sodium 136 mEq/L (136-145); eGFR For Non-African Americans > 60 (> 60)
[2018-05-03 02:33] LABS: Basophils % 0.4 %; Eosinophils # 0.2 K/mcL (0.0-0.6); Eosinophils % 1.7 %; Hematocrit 27.2 % (37.5-50.1); Hemoglobin 8.9 g/dL (12.9-16.9); Immature Granulocytes % 0.2 % (0-4); Lymphocytes % 21.2 %; Mean Corpuscular HGB Conc 32.7 g/dL (31.6-35.5); Mean Corpuscular Volume 88.6 fL (83.0-100.0); Mean Platelet Volume 10.4 fL (9.4-12.4); Monocytes # 1.1 K/mcL (0.0-1.3); Monocytes % 11.5 %; Platelet Count 208 K/mcL (140-400); Red Blood Count 3.07 M/mcL (4.19-5.50); Red Cell Distribution Width 16.4 % (11.5-14.5)
[2018-05-03] MEDS: Aspirin Enteric Coated 81 MG Tablet PO SCH (08:09)
[2018-05-03] MEDS: Chlorhexidine Rinse 15 ML MOUTHWASH MM SCH ×2 (08:09→21:27)
[2018-05-03] MEDS: Insulin LISPRO 300 UNITS/3 ML VIAL SQ SCH ×4 (08:10→21:24)
[2018-05-03] MEDS: Furosemide 40 MG/4 ML VIAL IVP SCH ×2 (08:10→18:18)
[2018-05-03] MEDS: *HR* Amiodarone 200 MG TABLET PO SCH (08:10)
--- NOTE | 2018-05-03 09:23 | Cardiothoracic Progress Note ---
Date of Encounter: 05/03/18 Time of Encounter: 09:21 - Assessment and plan (1) Coronary artery disease Current Visit: Yes Status: Acute We will plan to discharge the patient to home early next week. Qualifiers: Coronary Disease-Associated Artery/Lesion type: [place] artery [place] vs. transplanted heart: [place] heart Associated angina: with stable angina Qu alified Code(s): I25.118 - Atherosclerotic heart disease of [place] coronary artery with other forms of angina pectoris - Subjective Interval history: The patient feels better after his thoracentesis. He has had bowel movements. He has no complaints. Vital Signs, Last 4 Hours Temp Pulse Resp BP Pulse Ox 05/03/18 07:34 98.0 F 84 18 98/63 92 Oxgyen Flow Rate Oxygen Flow Rate (LPM) 2 Clinical Data, last 8 Hours Output, Urine Amount 200 Output, Urine Amount 400 Weight 05/01/18 05/02/18 05/03/18 23:59 23:59 23:59 Weight 134.9 kg 133.4 kg Lungs are clear to percussion and auscultation. Heart is in a normal sinus rhythm. All incisions are healing well without signs of infection and the sternum is stable. - Labs 05/03/18 01:45 05/03/18 01:45 Lab Results, Last 24 hours 05/03/18 05/03/18 01:45 01:45 WBC 9.2 Hgb 8.9 L Hct 27.2 L Plt Count 208 Sodium 136 Potassium 3.7 Chloride 99 Carbon Dioxide 29 BUN 20 Creatinine 1.16 Glucose 94 Calcium 8.2 L - VTE Reasons for not Prescribing Prophylaxis: Medical contraindication Consult Discharge Plan - Plan Referrals: Ev Flores MD [Partnered Physician] - 05/29/18 2:50 pm Forrest Foster DO [Partnered Physician] - 05/12/18 9:30 am Jyothi Vera [Primary Care Provider] - 05/09/18 9:00 am
[2018-05-04 06:07] LABS: Basophils # 0.1 K/mcL (0.0-0.2); Basophils % 0.6 %; Eosinophils # 0.2 K/mcL (0.0-0.6); Eosinophils % 2.7 %; Hematocrit 28.5 % (37.5-50.1); Hemoglobin 9.3 g/dL (12.9-16.9); Immature Granulocytes % 0.2 % (0-4); Lymphocytes # 1.6 K/mcL (0.6-4.6); Lymphocytes % 17.6 %; Mean Corpuscular HGB Conc 32.6 g/dL (31.6-35.5); Mean Corpuscular Hemoglobin 29.3 pg (28.0-33.3); Mean Corpuscular Volume 89.9 fL (83.0-100.0); Mean Platelet Volume 10.1 fL (9.4-12.4); Monocytes # 1.1 K/mcL (0.0-1.3); Monocytes % 12.2 %; Platelet Count 168 K/mcL (140-400); Red Blood Count 3.17 M/mcL (4.19-5.50); Red Cell Distribution Width 16.6 % (11.5-14.5); Segmented Neutrophils % 66.7 %
[2018-05-04 06:25] LABS: BUN/Creatinine Ratio 20 (6-26); Blood Urea Nitrogen 21 mg/dL (8-23); Calcium 8.5 mg/dL (8.6-10.3); Carbon Dioxide 29 mEq/L (23-29); Chloride 101 mEq/L (98-107); Glucose 104 mg/dL (70-105); Osmolality,Calculated 285 (280-300); Potassium 3.7 mEq/L (3.5-5.1); Sodium 136 mEq/L (136-145); eGFR For Non-African Americans > 60 (> 60)
[2018-05-04] MEDS: Insulin LISPRO 300 UNITS/3 ML VIAL SQ SCH ×4 (07:40→20:31)
[2018-05-04] MEDS: levoFLOXacin 500 MG TABLET PO SCH (07:49)
[2018-05-04] MEDS: Aspirin Enteric Coated 81 MG Tablet PO SCH (07:50)
[2018-05-04] MEDS: Furosemide 40 MG/4 ML VIAL IVP SCH ×2 (07:50→16:20)
[2018-05-04] MEDS: *HR* Amiodarone 200 MG TABLET PO SCH (07:50)
[2018-05-04] MEDS: Chlorhexidine Rinse 15 ML MOUTHWASH MM SCH ×2 (07:50→20:28)
--- NOTE | 2018-05-04 09:18 | Cardiothoracic Progress Note ---
Date of Encounter: 05/04/18 Time of Encounter: 09:16 - Assessment and plan (1) Coronary artery disease Current Visit: Yes Status: Acute We will check a chest x-ray tomorrow. Qualifiers: Coronary Disease-Associated Artery/Lesion type: [place] artery [place] vs. transplanted heart: [place] heart Associated angina: with stable angina Qualified Code(s): I25.118 - Atherosclerotic heart disease of [place] coronary artery with other forms of angina pectoris - Subjective Interval history: The patient is sitting in a chair and complains of mild constipation. Vital Signs, Last 4 Hours Temp Pulse Resp BP Pulse Ox 05/04/18 07:47 18 93 05/04/18 07:15 98.5 F 72 18 101/62 92 Oxgyen Flow Rate Oxygen Flow Rate (LPM) 0 Clinical Data, last 8 Hours Output, Urine Amount 700 Weight 05/02/18 05/03/18 05/04/18 23:59 23:59 23:59 Weight 134.9 kg 133.4 kg 132.3 kg Lungs are clear to percussion and auscultation. Heart is in an atrial fibrillation with a controlled rate. All incisions are healing well without signs of infection and the sternum is stable. - Labs 05/04/18 05:50 05/04/18 05:50 Lab Results, Last 24 hours 05/04/18 05/04/18 05:50 05:50 WBC 9.0 Hgb 9.3 L Hct 28.5 L Plt Count 168 Sodium 136 Potassium 3.7 Chloride 101 Carbon Dioxide 29 BUN 21 Creatinine 1.07 Glucose 104 Calcium 8.5 L - VTE Reasons for not Prescribing Prophylaxis: Medical contraindication Consult Discharge Plan - Plan Referrals: Ev Flores MD [Partnered Physician] - 05/29/18 2:50 pm Forrest Foster DO [Partnered Physician] - 05/12/18 9:30 am Jyothi Vera [Primary Care Provider] - 05/09/18 9:00 am
[2018-05-04] MEDS: Bisacodyl 10 MG RECTAL SUPPOSITORY RC PRN (09:32)
[2018-05-05 05:04] LABS: BUN/Creatinine Ratio 18 (6-26); Blood Urea Nitrogen 19 mg/dL (8-23); Carbon Dioxide 29 mEq/L (23-29); Chloride 101 mEq/L (98-107); Glucose 94 mg/dL (70-105); Osmolality,Calculated 286 (280-300); Potassium 3.4 mEq/L (3.5-5.1); Sodium 137 mEq/L (136-145); eGFR For Non-African Americans > 60 (> 60)
[2018-05-05 06:19] LABS: Basophils # 0.1 K/mcL (0.0-0.2); Basophils % 0.6 %; Eosinophils # 0.3 K/mcL (0.0-0.6); Eosinophils % 3.3 %; Hematocrit 31.2 % (37.5-50.1); Immature Granulocytes % 0.2 % (0-4); Lymphocytes # 2.2 K/mcL (0.6-4.6); Lymphocytes % 21.3 %; Mean Corpuscular HGB Conc 32.1 g/dL (31.6-35.5); Mean Corpuscular Hemoglobin 28.6 pg (28.0-33.3); Mean Corpuscular Volume 89.1 fL (83.0-100.0); Mean Platelet Volume 9.8 fL (9.4-12.4); Monocytes # 1.2 K/mcL (0.0-1.3); Monocytes % 11.1 %; Neutrophils # 6.6 K/mcL (1.6-8.9); Platelet Count 254 K/mcL (140-400); Red Cell Distribution Width 17.1 % (11.5-14.5); Segmented Neutrophils % 63.5 %
[2018-05-05] MEDS: Chlorhexidine Rinse 15 ML MOUTHWASH MM SCH ×2 (08:04→21:10)
[2018-05-05] MEDS: *HR* Amiodarone 200 MG TABLET PO SCH (08:05)
[2018-05-05] MEDS: levoFLOXacin 500 MG TABLET PO SCH (08:05)
[2018-05-05] MEDS: Insulin LISPRO 300 UNITS/3 ML VIAL SQ SCH ×4 (08:05→21:04)
[2018-05-05] MEDS: Aspirin Enteric Coated 81 MG Tablet PO SCH (08:05)
[2018-05-05] MEDS: Furosemide 40 MG/4 ML VIAL IVP SCH (08:05)
--- NOTE | 2018-05-05 09:20 | Cardiothoracic Progress Note ---
Date of Encounter: 05/05/18 Time of Encounter: : - Assessment and plan (1) Coronary artery disease Current Visit: Yes Status: Acute We will order a fleets enema as needed. We will plan to discharge the patient tomorrow. Qualifiers: Coronary Disease-Associated Artery/Lesion type: [place] artery [place] vs. t ransplanted heart: [place] heart Associated angina: with stable angina Qualified Code(s): I25.118 - Atherosclerotic heart disease of [place] coronary artery with other forms of angina pectoris - Subjective Interval history: The patient complains of mild constipation. Vital Signs, Last 4 Hours Temp Pulse Resp BP Pulse Ox 05/05/18 08:24 84 20 95 05/05/18 08:21 70 05/05/18 07:11 97.9 F 74 19 117/80 93 Oxgyen Flow Rate Oxygen Flow Rate (LPM) 0 Clinical Data, last 8 Hours Output, Urine Amount 325 Output, Urine Amount 300 Weight 05/03/18 05/04/18 05/05/18 23:59 23:59 23:59 Weight 133.4 kg 132.3 kg 132.2 kg Lungs are clear to percussion and auscultation. Heart is in an atrial fibrillation with a controlled ventricular rate. All incisions are healing well without signs of infection and the sternum is stable. Chest x-ray reveals a s mall left pleural effusion. - Labs 05/05/18 06:00 05/05/18 04:20 Lab Results, Last 24 hours 05/05/18 05/05/18 04:20 06:00 WBC 10.4 Hgb 10.0 L Hct 31.2 L Plt Count 254 D Sodium 137 Potassium 3.4 L Chloride 101 Carbon Dioxide 29 BUN 19 Creatinine 1.05 Glucose 94 Calcium 8.0 L - VTE Reasons for not Prescribing Prophylaxis: Medical contraindication Consult Discharge Plan - Plan Referrals: Ev Flores MD [Partnered Physician] - 05/29/18 2:50 pm Forrest Foster DO [Partnered Physician] - 05/12/18 9:30 am Jyothi Vera [Primary Care Provider] - 05/09/18 9:00 am
[2018-05-05] MEDS ORDERED: Milk and Molasses Enema 200 ML RC ONE (09:25)
[2018-05-05] MEDS: Furosemide 40 MG TABLET PO SCH (17:10)
[2018-05-06 04:55] LABS: Basophils # 0.1 K/mcL (0.0-0.2); Basophils % 0.6 %; Eosinophils # 0.3 K/mcL (0.0-0.6); Eosinophils % 3.8 %; Hemoglobin 10.1 g/dL (12.9-16.9); Immature Granulocytes % 0.3 % (0-4); Lymphocytes # 1.9 K/mcL (0.6-4.6); Lymphocytes % 20.7 %; Mean Corpuscular HGB Conc 32.6 g/dL (31.6-35.5); Mean Corpuscular Volume 89.1 fL (83.0-100.0); Mean Platelet Volume 10.5 fL (9.4-12.4); Monocytes % 11.5 %; Neutrophils # 5.7 K/mcL (1.6-8.9); Platelet Count 211 K/mcL (140-400); Red Blood Count 3.48 M/mcL (4.19-5.50); Red Cell Distribution Width 16.7 % (11.5-14.5); Segmented Neutrophils % 63.1 %
[2018-05-06 04:59] LABS: BUN/Creatinine Ratio 17 (6-26); Blood Urea Nitrogen 19 mg/dL (8-23); Calcium 8.3 mg/dL (8.6-10.3); Carbon Dioxide 27 mEq/L (23-29); Chloride 101 mEq/L (98-107); Glucose 102 mg/dL (70-105); Osmolality,Calculated 286 (280-300); Potassium 3.7 mEq/L (3.5-5.1); Sodium 137 mEq/L (136-145); eGFR For Non-African Americans > 60 (> 60)
[2018-05-06 05:01] LABS: Platelet Estimate Normal (Normal)
[2018-05-06] MEDS: Insulin LISPRO 300 UNITS/3 ML VIAL SQ SCH ×2 (08:03→11:48)
[2018-05-06] MEDS: Aspirin Enteric Coated 81 MG Tablet PO SCH (08:08)
[2018-05-06] MEDS: Furosemide 40 MG TABLET PO SCH (08:08)
[2018-05-06] MEDS: levoFLOXacin 500 MG TABLET PO SCH (08:08)
[2018-05-06] MEDS: *HR* Amiodarone 200 MG TABLET PO SCH (08:09)
[2018-05-06] MEDS: Chlorhexidine Rinse 15 ML MOUTHWASH MM SCH (08:09)
--- NOTE | 2018-05-06 11:24 | Discharge Summary ---
Orders not resulted at time of discharge: Pending orders 04/21/18 14:18 Culture,Blood [BC] Stat 04/23/18 16:51 Amylase,Peritoneal Fluid [BF] Stat Cell Cnt w Dif, Peritoneal Fl [BF] Stat Glucose,Peritoneal Fluid [BF] Stat LDH,Peritoneal Fluid [BF] Stat Total Protein,Peritoneal Fluid [BF] Stat 04/23/18 16:52 Culture,Body Fluid [RM] Stat Gram Stain [RM] Stat Date of Encounter: 05/06/18 Time of Encounter: 10:29 - Discharge Diagnosis (1) Coronary artery disease Priority: Primary Status: Acute Qualifiers: Coronary Disease-Associated Artery/Lesion type: [place] artery [place] vs. transplanted heart: [place] heart Associated angina: with stable angina Qualified Code(s): I25.118 - Atherosclerotic heart disease of [place] coronary artery with other forms of angina pectoris - Hospital Course Hospital course: Mr. Lima is a 62 year old male The patient is a 62-year-old gentleman with a history of diabetes, hypertension who presented with atrial fibrillation and coronary artery disease. Cardiac catheterization revealed severe coronary artery disease and he was referred for surgery. He also has a history of cirrhosis secondary to [place]. He had varices present one year ago and did have banding. He does see a liver specialist in [place]. On 04/15/2018, Dr. Flores took the patient to the operating room for coronary artery bypass grafting 4, utilizing the left internal mammary artery. Also a modified Maze procedure and left atrial appendage stapling. On 04/18/2018, the patient was taken back to the operating room for reexploration of the chest. He was found to have a small mediastinal hematoma with no active bleeding. The patient was seen by the pulmonary service for intensive care. He was seen by the GI service. He was also seen by infectious disease. He did have a central line infection, with positive blood cultures. The central line was removed and he was treated with appropriate antibiotics. The patient was in atrial fibrillation. He had a controlled ventricular rate on amiodarone 200 mg by mouth once a day. We did not start anticoagulants as his prothrombin time was prolonged because of his liver disease. His INR was in the 1.7-2 range. He was felt to have ascites. However he underwent 2 attempted under ultrasonic guidance and no fluid could be found. He had prolonged chest tube drainage. Eventually the chest tubes and pacing wires were removed. On 05/02/2018, he underwent a left ultrasound-guided thoracentesis with removal of 2 L of pleural fluid. Chest x-ray prior to discharge revealed only a small left pleural effusion. The patient otherwise did well and was discharged on May 06. At that time, he was afebrile. Lungs were clear to percussion and auscultation. Heart was in an atrial fibrillation with a controlled ventricular rate. All incisions were healing well without signs of infection and the sternum was stable. Medications are on the [employer] and include Percocet for pain. I did check the [facility] Rx reporting system. He was postoperative and was given a one-week supply. Appropriate precautions were given. He was to return to his previous and regular diet. He was to avoid heavy lifting for a total of 3 months after surgery, but to walk as much as possible. He was to avoid driving for 1 month. He was to follow up and see Dr. Flores in the office in 4 weeks as directed. He was to follow up and see his liver specialist in [place] in the next week. He was to follow-up with his primary care doctor and time recorder as directed. He was to call sooner for any difficulties. - Time Spent with Patient Total time spent providing and/or coordinating discharge services: - Discharge Medications Prescriptions: Amiodarone [Cordarone] 200 mg PO DAILY #30 tablet levoFLOXacin [Levaquin] 500 mg PO DAILY #7 tablet Spironolactone [Aldactone] 50 mg PO DAILY #30 tablet Home Medications: Aspirin [Lo-Dose Aspirin EC] 81 mg PO DAILY 04/03/18 [History] Furosemide [Lasix] 40 mg PO DAILY 04/03/18 [History] Metformin HCl 1,000 mg PO BID 04/03/18 [History] Omeprazole [PriLOSEC] 20 mg PO Q48H 04/03/18 [History] Rifaximin [Xifaxan] 550 mg PO BID 04/03/18 [History] Nadolol 20 mg PO HS 04/15/18 [History] Amiodarone [Cordarone] 200 mg PO DAILY #30 tablet 05/06/18 [Rx] Spironolactone [Aldactone] 50 mg PO DAILY #30 tablet 05/06/18 [Rx] levoFLOXacin [Levaquin] 500 mg PO DAILY #7 tablet 05/06/18 [Rx] Allergies/Adverse Reactions: Allergy/AdvReac Type Severity Reaction Status Date / Time Penicillins [PCN] Allergy Rash Verified 04/15/18 07:07 Date of admission: 04/15/18 11:22 Primary care physician: Jyothi Vera Consults: 04/15/18 13:28 Consult to Cardiac Rehabilitation-Phase1 [CONS] Routine Comment: Reason for Consult: Post open heart Call Completed: Yes 04/24/18 06:39 Consult to Infectious Diseases [CONS] Stat Consulting Provider: Infectious Disease [place] Reason for Consult: bacteremia Time Notified: 06:40 Call Completed: Yes 04/24/18 07:17 Consult to Gastroenterology [CONS] Routine Consulting Provider: Gastroenterology [place] Reason for Consult: ascites, cirrohsis Call Completed: Yes 04/24/18 07:33 Consult to Pulmonology [CONS] Routine Consulting Provider: Pulm Crit [facility] [place] Reason for Consult: ICU care Call Completed: Yes 04/29/18 10:17 Consult for Pharmacy Education [CONS] Routine Reason for Consult: Post-Op Heart Call Completed: Yes Consult to Occupational Therapy [CONS] Routine Comment: Evaluate, develop and implement POC Reason for Consult: Post-Op Heart Does patient have active BEDREST order?: No Is patient medically & hemodynamically stable?: Yes Consult to Physical Therapy [CONS] Routine Comment: Evaluate, develop and implement POC Reason for Consult: Post open heart Does patient have active BEDREST order?: No Is patient medically & hemodynamically stable?: Yes 05/01/18 15:24 Consult to Interventional Radiology [CONS] Routine Consulting Provider: Radiology Interventional [place] Reason for Consult: Left sided ultrasound guided thoracentesis, possible paracentesis on Saturday Call Completed: Yes Procedure(s) Performed: 04/15/2018. Coronary artery bypass grafting 4, utilizing the left internal mammary artery. Also, modified Maze procedure with left atrial appendage stapling. 04/18/2018. Reexploration of the chest for postoperative bleeding. Discharging clinician: Ian Llanes Anticipated date of discharge: 05/06/18 Physical Examination Vital Signs, Last 4 Hours Temp Pulse Resp BP Pulse Ox 05/06/18 08:27 18 92 05/06/18 08:21 65 05/06/18 07:43 98.2 F 75 18 108/64 92 - Patient Status Disposition: Home, Self-Care Condition: Fair Functional capacity at discharge: independent ambulation Overall status at discharge: patient is progressing back to baseline - Discharge Instructions Follow Up With: Ev Flores MD [Partnered Physician] - 05/29/18 2:50 pm Forrest Foster DO [Partnered Physician] - 05/12/18 9:30 am Jyothi Vera [Primary Care Provider] - 05/09/18 9:00 am [facility] Aspirin Cont/Prescribed at DC: Yes Beta Nicole Cont/Prescribed at DC: Yes Statin Cont/Prescribed at DC: No (liver disease) MARIE/ARB Cont/Prescribed at DC: Not indicated - VTE Reasons for not Prescribing Prophylaxis: Medical contraindication
--- NOTE | 2018-05-06 11:45 | Physician Discharge Referral ---
Home Health/Hosp Referral Info Transfer to: Home Health Provider in Charge Post Discharge: PCP - Diagnosis (1) Coronary artery disease Priority: Primary Status: Acute - Respiratory Orders Smoking Cessation: Smoking cessation has been advised. For more information, call the [place] Tobacco Quit Line at 8-020-NFAO-NOW. - Diet/Nutrition Diet/Nutrition Orders: Regular - Activity Activity Orders: Up ad rebeca, Ambulate, Chair - Services Needed Following services are medically necessary services: Home Health Aide, Physical Therapy, Occupational Therapy - Transfer Medications Prescriptions: Amiodarone [Cordarone] 200 mg PO DAILY #30 tablet levoFLOXacin [Levaquin] 500 mg PO DAILY #7 tablet Spironolactone [Aldactone] 50 mg PO DAILY #30 tablet Home Medications: Aspirin [Lo-Dose Aspirin EC] 81 mg PO DAILY 04/03/18 [History] Furosemide [Lasix] 40 mg PO DAILY 04/03/18 [History] Metformin HCl 1,000 mg PO BID 04/03/18 [History] Omeprazole [PriLOSEC] 20 mg PO Q48H 04/03/18 [History] Rifaximin [Xifaxan] 550 mg PO BID 04/03/18 [History] Nadolol 20 mg PO HS 04/15/18 [History] Amiodarone [Cordarone] 200 mg PO DAILY #30 tablet 05/06/18 [Rx] Spironolactone [Aldactone] 50 mg PO DAILY #30 tablet 05/06/18 [Rx] levoFLOXacin [Levaquin] 500 mg PO DAILY #7 tablet 05/06/18 [Rx] Allergies/Adverse Reactions: Allergy/AdvReac Type Severity Reaction Status Date / Time Penicillins [PCN] Allergy Rash Verified 04/15/18 07:07 Certification: Further, I certify that my clinical findings support that this patient is homebound (i.e. absences from home require considerable and taxing effort and are for medical reasons or yarsanism services or infrequently or short duration when for other reasons) because: Homebound Reason: Post-surgery restriction and or conditions limit ability to leave home Attestation: My signature below is to certify that this patient is under my care and that I, or nurse practitioner, or a physician's certified surgical assistant working with me, has a [id number] encounter with this patient.
[2018-05-06 11:48] VITALS: BP 100/70
== END 2018-05-06 14:31 | disposition home health service (06) | DRG 235 ==
LOC: SAMDAY 06:24 → ICNU 11:22 → 2NNU 04-29 20:40
PROVIDERS: ADMIT Thoracic Surgery (Cardiothoracic Vascular Surgery); ATTEND Thoracic Surgery (Cardiothoracic Vascular Surgery)